=== PATIENT | male | born 1950 | race Hispanic/Latino ===

== ENCOUNTER 2024-09-24 17:52 | Inpatient (IN) | payer OTHER, SELFPAY ==
--- OUTSIDE RECORDS SUMMARY | 2024-09-24 17:56 | XMS REPORT | Continuity of Care Document ---
Author Name Unknown Address [address] [place], [place] [id number] [facility] Address [address] [place] [address] [address] [place] [address] Care Team Providers Care Family Engagement Specialist Name Role Phone UNKNOWN, REFFERING Primary Care Physician Roni santos Ajibade_O_AH Attending Clinician Unavailable Ige-Odunuga_J_AH Attending Clinician Unavailable JESSICA COSTA M.D., [place] BOWMAN Attending Clinician Unavailable Ajibade_O_AH Admitting Clinician Unavailable Ige-Odunuga_J_AH Admitting Clinician Unavailable JESSICA COSTA M.D., JESSICA Dela Cruz Admitting Clinician Unavailable Payers Payer Name Policy Type Policy Number Effective Date Expirati on Date Source [facility] (MEDICARE REPLACEMENT/ADVANT AGE - HMO) [id number] 2019 00:00:00 Encounters Start Date/Time End Date/Time Encounter Type Admission Type Attending Clinicians Care Facility Care Department Encounter ID Source 2020-03-16 03:28:00 2020-03-16 03:28:00 Outpatient Ajibade_O_A H [facility] VFP [id number] [facility] 2020-03-16 03:28:00 2020-03-16 03:28:00 Outpatient Ajibade_O_A H [facility] VFP [id number] [facility] 2019-09-08 07:23:00 2019-09-08 07:23:00 Outpatient Ige-Odunuga _J_AH V[facility] VFP [id number] [facility] 2019-09-08 07:23:00 2019-09-08 07:23:00 Outpatient Ige-Odunuga _J_AH VFP VFP [id number] [facility] 2017-06-19 10:47:00 2017-06-19 10:47:00 Outpatient C [facility] [id number] [facility] 2017-05-30 08:33:00 2017-05-30 08:33:00 Outpatient JESSICA MEEKS [facility] [id number] [facility] 2017-05-06 06:29:00 2017-05-06 19:44:00 Inpatient JESSICA MEEKS [facility] [id number] [facility] 2017-03-10 08:40:00 2017-03-10 08:40:00 Outpatient C [facility] [id number] [facility] 2014-04-06 09:43:00 2014-04-06 09:43:00 Outpatient C [facility] [id number] [facility] 2014-02-22 07:58:00 2014-02-22 07:58:00 Emergency E [facility] [id number] [facility] Results Test Description Test Time Test Comments Results Resul t Comments Source XR CYSTOGRAM (O.R.) 2017-06-19 12:03:48 XR CYSTOGRAM (O.R.)LOCATION: R16 HISTORY: N40.1: BENIGN PROSTATIC HYPERPLASIA WITH LOWER URINARY TRACTSYMPCOMPARISON: CT of the abdomen and pelvis 03/10/2017TECHNIQUE: Postdoctoral Scholar abdominal radiograph was obtained. Multiplefluoroscopic images of the bladder were obtained before and after theadministration of contrast via Hart catheter (approximately 100 mL ofCystografin). A post void abdominal radiograph was also obtained.FINDINGS: Postdoctoral Scholar radiograph shows a nonspecific, nonobstructive bowel gas pattern.A mild to moderate amount of colonic stool is present. Multiple smallcalcifications in the lower pelvis are likely phleboliths. Midlinemetallic ita are seen over the lower pelvis.The bladder has a bilobed configuration (with superior and inferiorlobe). A few small bilateral outpouchings are seen along the lateralbladder mills, left greater than right. Some of the contrast leaksaround the Hart catheter balloon into an apparent central prostatectomydefect. Aside from the Hart catheter, there are no definite fillingdefects within the bladder.IMPRESSION: 1. Bilobed bladder contour.2. Few small outpouchings along the lateral bladder mills, left greaterthan right, may be due to small diverticula and/or mucosal irregularity.3. Some of the contrast leaks around the Hart catheter balloon into anapparent central prostatectomy defect.4. Aside from the Hart catheter, there are no definite filling defectswithin the bladder. Basic Metabolic [id number] 06:00:00* Test Item Value Reference Range Interpretation Comme nts Sodium (test code = NA) 131 mmol/L 135-145 L Potassium (test code = K) 3.3 mmol/L 3.5-5.1 L Chloride (test code = CL) 98 mmol/L 98-105 N Carbon Dioxide (test code = CO2) 23 mmol/L 22-29 N Glucose (test code = GLU) 108 mg/dL 70-115 N Blood Urea Nitrogen (test code = BUN) 10 mg/dL 8-23 N Creatinine (test code = CREAT) 0.8 mg/dL 0.7-1.2 N Calcium (test code = CA) 8.4 mg/dL 8.3-10.5 N BUN/Creatinine Ratio (test code = BCRATIO) 12.5 Anion Gap (test code = AGAP) 10 mmol/L 7-16 N Estimated GFR (test code = GFR) >60 mL/min/1.73m2 eGFR (estimated Glomerular Filtration Rate) is an estimated value,calculated from the patient's serum creatinine using the MDRD equation.It is NOT the patient's actual GFR. The eGFR provides a more clinicallyuseful measure of kidney disease than serum creatinine alone.This calculation takes sex and race into account, if the informationis provided. If the race is not provided, and the patient isAfrican-Iranian, multiply by 1.212. If sex is not provided, and thepatient is female, multiply by 0.742. Results for patients <18 years ofage have not been validated by the MDRD study and should be interpretedwith caution.eGFR Result Interpretation:eGFR > or = 60 is in the Normal RangeeGFR < 60 may mean kidney diseaseeGFR < 15 may mean kidney failureRanges recommended by the National Kidney Foundation,http://nkdep .nih.gov CBC with [id number] 05:56:00* Test Item Value Reference Range Interpretation Comme nts WBC (test code = WBC) 8.3 K/cumm 4.4-10.5 N RBC (test code = RBC) 3.35 M/cumm 4.10-5.70 L Hemoglobin (test code = HGB) 10.1 gm/dL 13.4-17.4 L Hematocrit (test code = HCT) 30.0 % 38.7-52.0 L MCV (test code = MCV) 89.5 fL 80-100 N MCH (test code = MCH) 30.1 pg 27.0-32.5 N MCHC (test code = MCHC) 33.6 g/dL 32.0-37.5 N RDW (test code = RDW) 13.1 % 11.5-14.5 N Platelet Count (test code = PLTCT) 175 K/cumm 140-440 N MPV (test code = MPV) 8.6 fL Diff Method (test code = DIFFM) Auto Neutrophil (test code = NEUT) 78.0 % 36-70 H Lymphocyte (test code = LYMPH) 11.4 % 12-44 L Monocyte (test code = MONO) 5.3 % 0-11 N Eosinophil (test code = EOS) 4.8 % 0-7 N Basophil (test code = BASO) 0.4 % 0-2 N Neutro Abs (test code = ANEUT) 6.4 K/cumm 1.6-7.4 N Lymph Abs (test code = ALYMPH) 0.9 K/cumm 0.5-4.6 N Treasure Abs (test code = AMONO) 0.4 K/cumm 0.0-1.2 N Eos Abs (test code = AEOS) 0.40 K/cumm 0.00-0.74 N Baso Abs (test code = ABASO) 0.0 K/cumm 0.00-0.21 N RBC, Crossmatch [id number] 00:15:00* Test Item Value Reference Range Interpretation Comme nts Product 1 Code (test code = PRODCODE1) E4533 Unit 1 ID (test code = UNITID1) [id number] Unit 1 ABO (test code = UNITABO1) O Unit 1 Rh (test code = UNITRH1) POS Unit 1 Interp (test code = UNITINTERP1) Compatible Unit 1 Status (test code = UNITSTAT1) RE Product 2 Code (test code = PRODCODE2) E4532 Unit 2 ID (test code = UNITID2) [id number] Unit 2 ABO (test code = UNITABO2) O Unit 2 Rh (test code = UNITRH2) POS Unit 2 Interp (test code = UNITINTERP2) Compatible Unit 2 Status (test code = UNITSTAT2) RE Basic Metabolic [id number] 06:10:00* Test Item Value Reference Range Interpretation Comme nts Sodium (test code = NA) 135 mmol/L 135-145 N Potassium (test code = K) 3.4 mmol/L 3.5-5.1 L Chloride (test code = CL) 102 mmol/L 98-105 N Carbon Dioxide (test code = CO2) 24 mmol/L 22-29 N Glucose (test code = GLU) 103 mg/dL 70-115 N Blood Urea Nitrogen (test code = BUN) 9 mg/dL 8-23 N Creatinine (test code = CREAT) 0.9 mg/dL 0.7-1.2 N Calcium (test code = CA) 8.3 mg/dL 8.3-10.5 N BUN/Creatinine Ratio (test code = BCRATIO) 10.0 Anion Gap (test code = AGAP) 9 mmol/L 7-16 N Estimated GFR (test code = GFR) >60 mL/min/1.73m2 eGFR (estimated Glomerular Filtration Rate) is an estimated value,calculated from the patient's serum creatinine using the MDRD equation.It is NOT the patient's actual GFR. The eGFR provides a more clinicallyuseful measure of kidney disease than serum creatinine alone.This calculation takes sex and race into account, if the informationis provided. If the race is not provided, and the patient isAfrican-Iranian, multiply by 1.212. If sex is not provided, and thepatient is female, multiply by 0.742. Results for patients <18 years ofage have not been validated by the MDRD study and should be interpretedwith caution.eGFR Result Interpretation:eGFR > or = 60 is in the Normal RangeeGFR < 60 may mean kidney diseaseeGFR < 15 may mean kidney failureRanges recommended by the National Kidney Foundation,http://nkdep .nih.gov CBC with [id number] 06:05:00* Test Item Value Reference Range Interpretation Comme nts WBC (test code = WBC) 8.6 K/cumm 4.4-10.5 N RBC (test code = RBC) 3.30 M/cumm 4.10-5.70 L Hemoglobin (test code = HGB) 10.1 gm/dL 13.4-17.4 L Hematocrit (test code = HCT) 28.4 % 38.7-52.0 L MCV (test code = MCV) 86.3 fL 80-100 N MCH (test code = MCH) 30.6 pg 27.0-32.5 N MCHC (test code = MCHC) 35.4 g/dL 32.0-37.5 N RDW (test code = RDW) 13.3 % 11.5-14.5 N Platelet Count (test code = PLTCT) 130 K/cumm 140-440 L MPV (test code = MPV) 10.6 fL Diff Method (test code = DIFFM) Auto Neutrophil (test code = NEUT) 79.7 % 36-70 H Lymphocyte (test code = LYMPH) 12.2 % 12-44 N Monocyte (test code = MONO) 4.8 % 0-11 N Eosinophil (test code = EOS) 3.0 % 0-7 N Basophil (test code = BASO) 0.3 % 0-2 N Neutro Abs (test code = ANEUT) 6.9 K/cumm 1.6-7.4 N Lymph Abs (test code = ALYMPH) 1.1 K/cumm 0.5-4.6 N Treasure Abs (test code = AMONO) 0.4 K/cumm 0.0-1.2 N Eos Abs (test code = AEOS) 0.26 K/cumm 0.00-0.74 N Baso Abs (test code = ABASO) 0.0 K/cumm 0.00-0.21 N Basic Metabolic [id number] 05:43:00* Test Item Value Reference Range Interpretation Comme nts Sodium (test code = NA) 138 mmol/L 135-145 N Potassium (test code = K) 4.0 mmol/L 3.5-5.1 N Chloride (test code = CL) 108 mmol/L 98-105 H Carbon Dioxide (test code = CO2) 23 mmol/L 22-29 N Glucose (test code = GLU) 97 mg/dL 70-115 N Blood Urea Nitrogen (test code = BUN) 12 mg/dL 8-23 N Creatinine (test code = CREAT) 0.7 mg/dL 0.7-1.2 N Calcium (test code = CA) 8.2 mg/dL 8.3-10.5 L BUN/Creatinine Ratio (test code = BCRATIO) 17.1 Anion Gap (test code = AGAP) 7 mmol/L 7-16 N Estimated GFR (test code = GFR) >60 mL/min/1.73m2 eGFR (estimated Glomerular Filtration Rate) is an estimated value,calculated from the patient's serum creatinine using the MDRD equation.It is NOT the patient's actual GFR. The eGFR provides a more clinicallyuseful measure of kidney disease than serum creatinine alone.This calculation takes sex and race into account, if the informationis provided. If the race is not provided, and the patient isAfrican-Iranian, multiply by 1.212. If sex is not provided, and thepatient is female, multiply by 0.742. Results for patients <18 years ofage have not been validated by the MDRD study and should be interpretedwith caution.eGFR Result Interpretation:eGFR > or = 60 is in the Normal RangeeGFR < 60 may mean kidney diseaseeGFR < 15 may mean kidney failureRanges recommended by the National Kidney Foundation,http://nkdep .nih.gov CBC with [id number] 05:19:00* Test Item Value Reference Range Interpretation Comme nts WBC (test code = WBC) 8.6 K/cumm 4.4-10.5 N RBC (test code = RBC) 3.40 M/cumm 4.10-5.70 L Hemoglobin (test code = HGB) 10.4 gm/dL 13.4-17.4 L Hematocrit (test code = HCT) 29.1 % 38.7-52.0 L MCV (test code = MCV) 85.4 fL 80-100 N MCH (test code = MCH) 30.5 pg 27.0-32.5 N MCHC (test code = MCHC) 35.7 g/dL 32.0-37.5 N RDW (test code = RDW) 13.3 % 11.5-14.5 N Platelet Count (test code = PLTCT) 135 K/cumm 140-440 L MPV (test code = MPV) 10.8 fL Diff Method (test code = DIFFM) Auto Neutrophil (test code = NEUT) 81.0 % 36-70 H Lymphocyte (test code = LYMPH) 11.8 % 12-44 L Monocyte (test code = MONO) 5.1 % 0-11 N Eosinophil (test code = EOS) 1.6 % 0-7 N Basophil (test code = BASO) 0.5 % 0-2 N Neutro Abs (test code = ANEUT) 7.0 K/cumm 1.6-7.4 N Lymph Abs (test code = ALYMPH) 1.0 K/cumm 0.5-4.6 N Treasure Abs (test code = AMONO) 0.4 K/cumm 0.0-1.2 N Eos Abs (test code = AEOS) 0.14 K/cumm 0.00-0.74 N Baso Abs (test code = ABASO) 0.0 K/cumm 0.00-0.21 N [id number] 10:55:00* Test Item Value Reference Range Interpretation Comme nts Phosphorus (test code = PO4) 2.5 mg/dL 2.70-4.50 L Magnesium, [id number] 10:53:00* Test Item Value Reference Range Interpretation Comme nts Magnesium (test code = MG) 1.8 mg/dL 1.7-2.5 N Basic Metabolic [id number] 03:59:00* Test Item Value Reference Range Interpretation Comme nts Sodium (test code = NA) 138 mmol/L 135-145 N Potassium (test code = K) 4.0 mmol/L 3.5-5.1 N Chloride (test code = CL) 108 mmol/L 98-105 H Carbon Dioxide (test code = CO2) 21 mmol/L 22-29 L Glucose (test code = GLU) 132 mg/dL 70-115 H Blood Urea Nitrogen (test code = BUN) 18 mg/dL 8-23 N Creatinine (test code = CREAT) 0.9 mg/dL 0.7-1.2 N Calcium (test code = CA) 8.2 mg/dL 8.3-10.5 L BUN/Creatinine Ratio (test code = BCRATIO) 20.0 Anion Gap (test code = AGAP) 9 mmol/L 7-16 N Estimated GFR (test code = GFR) >60 mL/min/1.73m2 eGFR (estimated Glomerular Filtration Rate) is an estimated value,calculated from the patient's serum creatinine using the MDRD equation.It is NOT the patient's actual GFR. The eGFR provides a more clinicallyuseful measure of kidney disease than serum creatinine alone.This calculation takes sex and race into account, if the informationis provided. If the race is not provided, and the patient isAfrican-Iranian, multiply by 1.212. If sex is not provided, and thepatient is female, multiply by 0.742. Results for patients <18 years ofage have not been validated by the MDRD study and should be interpretedwith caution.eGFR Result Interpretation:eGFR > or = 60 is in the Normal RangeeGFR < 60 may mean kidney diseaseeGFR < 15 may mean kidney failureRanges recommended by the National Kidney Foundation,http://nkdep .nih.gov CBC with [id number] 03:46:00* Test Item Value Reference Range Interpretation Comme nts WBC (test code = WBC) 11.7 K/cumm 4.4-10.5 H RBC (test code = RBC) 3.62 M/cumm 4.10-5.70 L Hemoglobin (test code = HGB) 10.9 gm/dL 13.4-17.4 L Hematocrit (test code = HCT) 32.4 % 38.7-52.0 L MCV (test code = MCV) 89.6 fL 80-100 N MCH (test code = MCH) 30.1 pg 27.0-32.5 N MCHC (test code = MCHC) 33.7 g/dL 32.0-37.5 N RDW (test code = RDW) 13.1 % 11.5-14.5 N Platelet Count (test code = PLTCT) 153 K/cumm 140-440 N MPV (test code = MPV) 8.3 fL Diff Method (test code = DIFFM) Auto Neutrophil (test code = NEUT) 88.7 % 36-70 H Lymphocyte (test code = LYMPH) 6.9 % 12-44 L Monocyte (test code = MONO) 4.3 % 0-11 N Eosinophil (test code = EOS) 0.1 % 0-7 N Basophil (test code = BASO) 0.1 % 0-2 N Neutro Abs (test code = ANEUT) 10.4 K/cumm 1.6-7.4 H Lymph Abs (test code = ALYMPH) 0.8 K/cumm 0.5-4.6 N Treasure Abs (test code = AMONO) 0.5 K/cumm 0.0-1.2 N Eos Abs (test code = AEOS) 0.01 K/cumm 0.00-0.74 N Baso Abs (test code = ABASO) 0.0 K/cumm 0.00-0.21 N CBC with [id number] 14:32:00* Test Item Value Reference Range Interpretation Comme nts WBC (test code = WBC) 8.5 K/cumm 4.4-10.5 N WBC Corrected (test code = CWBC) 8.4 K/cumm 4.4-10.5 N RBC (test code = RBC) 3.75 M/cumm 4.10-5.70 L Hemoglobin (test code = HGB) 11.6 gm/dL 13.4-17.4 L Hematocrit (test code = HCT) 33.8 % 38.7-52.0 L MCV (test code = MCV) 90.0 fL 80-100 N MCH (test code = MCH) 30.8 pg 27.0-32.5 N MCHC (test code = MCHC) 34.2 g/dL 32.0-37.5 N RDW (test code = RDW) 13.2 % 11.5-14.5 N Platelet Count (test code = PLTCT) 144 K/cumm 140-440 N MPV (test code = MPV) 7.9 fL Diff Method (test code = DIFFM) Manual Neutrophil (test code = NEUT) 85.0 % 36-70 H Bands (test code = BAND) 9.0 % 0-6 H Lymphocyte (test code = LYMPH) 3.0 % 12-44 L Monocyte (test code = MONO) 3.0 % 0-11 N nRBC (test code = NRBC) 1 /100 WBC 0-0 H Neutro Abs (test code = ANEUT) 7.9 K/cumm 1.6-7.4 H Lymph Abs (test code = ALYMPH) 0.3 K/cumm 0.5-4.6 L Treasure Abs (test code = AMONO) 0.3 K/cumm 0.0-1.2 N RBC Morphology (test code = RBCMRPH) Normal Platelet Est (test code = PLTEST) Normal Platelet on Smear Basic Metabolic [id number] 14:05:00* Test Item Value Reference Range Interpretation Comme nts Sodium (test code = NA) 138 mmol/L 135-145 N Potassium (test code = K) 3.9 mmol/L 3.5-5.1 N Chloride (test code = CL) 107 mmol/L 98-105 H Carbon Dioxide (test code = CO2) 19 mmol/L 22-29 L Glucose (test code = GLU) 120 mg/dL 70-115 H Blood Urea Nitrogen (test code = BUN) 20 mg/dL 8-23 N Creatinine (test code = CREAT) 0.9 mg/dL 0.7-1.2 N Calcium (test code = CA) 8.1 mg/dL 8.3-10.5 L BUN/Creatinine Ratio (test code = BCRATIO) 22.2 Anion Gap (test code = AGAP) 12 mmol/L 7-16 N Estimated GFR (test code = GFR) >60 mL/min/1.73m2 eGFR (estimated Glomerular Filtration Rate) is an estimated value,calculated from the patient's serum creatinine using the MDRD equation.It is NOT the patient's actual GFR. The eGFR provides a more clinicallyuseful measure of kidney disease than serum creatinine alone.This calculation takes sex and race into account, if the informationis provided. If the race is not provided, and the patient isAfrican-Iranian, multiply by 1.212. If sex is not provided, and thepatient is female, multiply by 0.742. Results for patients <18 years ofage have not been validated by the MDRD study and should be interpretedwith caution.eGFR Result Interpretation:eGFR > or = 60 is in the Normal RangeeGFR < 60 may mean kidney diseaseeGFR < 15 may mean kidney failureRanges recommended by the National Kidney Foundation,http://nkdep .nih.gov Antibody Screen - [id number] 10:04:00* Test Item Value Reference Range Interpretation Comme nts Antibody Screen (test code = ABSCR) Negative Blood Gas+Lytes+Glu+Ca+Hgb+Hct+[id number] 09:54:00* Test Item Value Reference Range Interpretation Comme nts pH, Blood Gas (test code = BGPH) 7.368 pH Units 7.35-7.45 N pCO2 (test code = PCO2) 35.8 mm Hg 35-45 N pO2 (test code = PO2) 241.0 mm Hg 80-100 HH Bicarbonate (test code = HCO3) 20.6 mmol/L 22.0-26.0 LL Base Excess (test code = BE) -4.1 mmol/L O2 Saturation (test code = O2SAT) 99.6 % 80.0-100.0 N Sodium, Blood Gas (test code = BGNA) 141 mmol/L 135-145 N Potassium, Blood Gas (test code = BGK) 3.9 mmol/L 3.5-4.5 N Chloride, Blood Gas (test code = BGCL) 112 mmol/L 98-105 H Calcium, Ionized, Blood Gas (test code = BGCAI) 1.10 mmol/L 1.00-1.50 N Glucose, Blood Gas (test code = BGGLU) 109 mg/dL 75-115 N tHB (test code = RTHB) 12.1 gm/dL 12.2-17.4 L Hematocrit, Blood Gas (test code = BGHCT) 37.2 % 34.0-52.0 N O2Hb (test code = RO2HB) 97 80-100 N Carboxyhemoglobin (test code = CARHGB) 0.7 % 0.0-20.0 N Methemoglobin (test code = METHGB) 1.7 % 0.0-20.0 N FIO2 % (test code = FIO2) 100 % Patient Temperature (test code = PTTEMP) 37.0 Degrees Celcius Puncture Site (test code = PUNSITE) Art line Drawing Tech ID (test code = DRAWTECH) dr cervantes Lactic Acid, Blood Gas (test code = BGLA) 1.1 mmol/L Respiratory Rate (test code = RESP RATE) 0 Blood Type and [id number] 09:26:00* Test Item Value Reference Range Interpretation Comme nts ABO type (test code = ABO) O Rh Type (test code = RH) Positive Blood Gas+Lytes+Glu+Ca+Hgb+Hct+[id number] 08:42:00* Test Item Value Reference Range Interpretation Comme nts pH, Blood Gas (test code = BGPH) 7.449 pH Units 7.35-7.45 N pCO2 (test code = PCO2) 30.7 mm Hg 35-45 L pO2 (test code = PO2) 540.0 mm Hg 80-100 HH Bicarbonate (test code = HCO3) 21.3 mmol/L 22.0-26.0 LL Base Excess (test code = BE) -1.7 mmol/L O2 Saturation (test code = O2SAT) 98.8 % 80.0-100.0 N Sodium, Blood Gas (test code = BGNA) 140 mmol/L 135-145 N Potassium, Blood Gas (test code = BGK) 3.9 mmol/L 3.5-4.5 N Chloride, Blood Gas (test code = BGCL) 111 mmol/L 98-105 H Calcium, Ionized, Blood Gas (test code = BGCAI) 1.18 mmol/L 1.00-1.50 N Glucose, Blood Gas (test code = BGGLU) 96 mg/dL 75-115 N tHB (test code = RTHB) 13.8 gm/dL 12.2-17.4 N Hematocrit, Blood Gas (test code = BGHCT) 42.4 % 34.0-52.0 N O2Hb (test code = RO2HB) 98 80-100 N Carboxyhemoglobin (test code = CARHGB) -0.1 % 0.0-20.0 LL Methemoglobin (test code = METHGB) 1.1 % 0.0-20.0 N FIO2 % (test code = FIO2) 100 % Patient Temperature (test code = PTTEMP) 37.0 Degrees Celcius Puncture Site (test code = PUNSITE) Art line Drawing Tech ID (test code = DRAWTECH) dr cervantes Lactic Acid, Blood Gas (test code = BGLA) 0.9 mmol/L Respiratory Rate (test code = RESP RATE) 0 Culture, [id number] 11:26:00Specimen: UrineCollected: 05/30/2017 11:40 Status: Final Last Updated: 06/03/2017 11:26 Isolate (Final) (Final) 05/31/17 >100,000 CFU/mL Morganella morganii 06/02/17 Multi Drug Resistant Organism - Contact IsolationRecommended Amikacin <=16 Susceptible Ampicillin >16 Resistant Ampicillin/Sulb >16/8 Resistant Cefazolin >16 Resistant Cefepime <=4 Susceptible Cefotaxime 16 Intermediate Ceftazidime 16 Intermediate Ceftriaxone 2 Intermediate Cefuroxime >16 Resistant Ciprofloxacin >2 Resistant Gentamicin >8 Resistant Imipenem 4 Resistant Levofloxacin >4 Resistant Meropenem <=1 Susceptible Nitrofurantoin 64 Resistant Piperacillin/Tazo 64 Intermediate Tobramycin >8 Resistant Trimethoprim/Sulfa >2/38 Resistant Isolate (Final) (Final) 05/31/17 >100,000 CFU/mL Group D Enterococcus Isolate Group D Enterococcus PRITI (mcg/ml) Ampicillin(AM) <=2 Susceptible Ciprofloxacin (CP) 2 Intermediate Gentamicin Syn (HLG) <=500 Susceptible Levofloxacin (LEV) 2 Susceptible Linezolid (LNZ) 2 Susceptible Nitrofurantoin (FT) <=32 Susceptible Penicillin (P) 2 Susceptible Streptomycin Syn (HLS)<=1000 Susceptible Tetracycline (TE) >8 Resistant Vancomycin (VA) 2 SusceptibleBasi Metabolic [id number] 13:26:00* Test Item Value Reference Range Interpretation Comme nts Sodium (test code = NA) 137 mmol/L 135-145 N Potassium (test code = K) 4.0 mmol/L 3.5-5.1 N Chloride (test code = CL) 99 mmol/L 98-105 N Carbon Dioxide (test code = CO2) 24 mmol/L 22-29 N Glucose (test code = GLU) 84 mg/dL 70-115 N Blood Urea Nitrogen (test code = BUN) 17 mg/dL 8-23 N Creatinine (test code = CREAT) 0.9 mg/dL 0.7-1.2 N Calcium (test code = CA) 9.5 mg/dL 8.3-10.5 N BUN/Creatinine Ratio (test code = BCRATIO) 18.9 Anion Gap (test code = AGAP) 14 mmol/L 7-16 N Estimated GFR (test code = GFR) >60 mL/min/1.73m2 eGFR (estimated Glomerular Filtration Rate) is an estimated value,calculated from the patient's serum creatinine using the MDRD equation.It is NOT the patient's actual GFR. The eGFR provides a more clinicallyuseful measure of kidney disease than serum creatinine alone.This calculation takes sex and race into account, if the informationis provided. If the race is not provided, and the patient isAfrican-Iranian, multiply by 1.212. If sex is not provided, and thepatient is female, multiply by 0.742. Results for patients <18 years ofage have not been validated by the MDRD study and should be interpretedwith caution.eGFR Result Interpretation:eGFR > or = 60 is in the Normal RangeeGFR < 60 may mean kidney diseaseeGFR < 15 may mean kidney failureRanges recommended by the National Kidney Foundation,http://nkdep .nih.gov Urinalysis [id number] 13:20:00* Test Item Value Reference Range Interpretation Comme nts Color (test code = COLOR) Yellow Yellow ,Straw,Pl yellow N Clarity (test code = CLAR) Sl Cloudy Clear A Specific [place] (test code = SPGR) 1.012 1.001-1.035 N pH (test code = PH) 7.0 5.0-9.0 N Ketone (test code = KET) Negative mg/dL Negative N Glucose (test code = GLUCUR) Negative mg/dL Negative N Protein (test code = PROT) 75 mg/dL Negative A Bilirubin (test code = BILI) Negative mg/dL Negative N Occult Blood (test code = UDOB) Moderate Negative A Urobilinogen (test code = UROB) 0.2 mg/dL 0.2-1.0 N Nitrite (test code = NIT) Negative Negative N Leuk Esterase (test code = LEUK) Large Negative A Micros Exam (test code = MEXAM) Indicated Epithelial Cells (test code = EPI) 10-14 /LPF 0-30 A WBC, Urine (test code = UWBC) >182 /HPF 0-5 A RBC, Urine (test code = URBC) 6-10 /HPF 0-5 A Bacteria (test code = BACT) Many /HPF Partial Thromboplastin [id number] 13:04:00* Test Item Value Reference Range Interpretation Comme nts aPTT (test code = PTT) 31.60 seconds 24.39-37.25 N Prothrombin [id number] 13:04:00* Test Item Value Reference Range Interpretation Comme nts PT (test code = PT) 11.40 seconds 9.78-13.35 N INR (test code = INR) 1.01 Ratio 0.6-1.2 N CBC with [id number] 12:38:00* Test Item Value Reference Range Interpretation Comme nts WBC (test code = WBC) 4.6 K/cumm 4.4-10.5 N RBC (test code = RBC) 4.96 M/cumm 4.10-5.70 N Hemoglobin (test code = HGB) 14.9 gm/dL 13.4-17.4 N Hematocrit (test code = HCT) 44.8 % 38.7-52.0 N MCV (test code = MCV) 90.3 fL 80-100 N MCH (test code = MCH) 30.0 pg 27.0-32.5 N MCHC (test code = MCHC) 33.2 g/dL 32.0-37.5 N RDW (test code = RDW) 12.9 % 11.5-14.5 N Platelet Count (test code = PLTCT) 255 K/cumm 140-440 N MPV (test code = MPV) 8.5 fL Diff Method (test code = DIFFM) Auto Neutrophil (test code = NEUT) 62.2 % 36-70 N Lymphocyte (test code = LYMPH) 27.1 % 12-44 N Monocyte (test code = MONO) 6.9 % 0-11 N Eosinophil (test code = EOS) 2.8 % 0-7 N Basophil (test code = BASO) 1.1 % 0-2 N Neutro Abs (test code = ANEUT) 2.9 K/cumm 1.6-7.4 N Lymph Abs (test code = ALYMPH) 1.3 K/cumm 0.5-4.6 N Treasure Abs (test code = AMONO) 0.3 K/cumm 0.0-1.2 N Eos Abs (test code = AEOS) 0.13 K/cumm 0.00-0.74 N Baso Abs (test code = ABASO) 0.1 K/cumm 0.00-0.21 N XR CHEST 2V, [id number] 10:37:53EXAM: Chest x-ray, 2 viewsLOCATION: [id number]: CT of the abdomen and pelvis 03/10/2017INDICATION: N21.0: CALCULUS IN BLADDERDISCUSSION:PA and lateral chest radiographs were submitted for interpretation.No consolidation, pleural effusion, or pneumothorax is seen. There is eventration of the righthemidiaphragm.The cardiomediastinal silhouette is within normal limits. No acute osseous abnormalities are identified. A small lobular calcific density over the lower left paramedian neck isindetermi shun.IMPRESSION:No acute cardiopulmonary abnormalities.Culture, [id number] 10:21:00Specimen: UrineCollected: 05/06/2017 10:45 Status: Final Last Updated: 05/09/2017 10:21 Isolate (Final) (Final) 05/07/17 40,000 CFU/mL Morganella morganii +05/09/17 Multi Drug Resistant Organism - Contact IsolationRecommended Amikacin <=16 Susceptible Ampicillin >16 Resistant Ampicillin/Sulb >16/8 Resistant Cefazolin >16 Resistant Cefepime <=4 Susceptible Cefotaxime 32 Intermediate Ceftazidime >16 Resistant Ceftriaxone 8 Resistant Cefuroxime >16 Resistant Ciprofloxacin >2 Resistant Gentamicin >8 Resistant Imipenem 4 Resistant Levofloxacin >4 Resistant Meropenem <=1 Susceptible Nitrofurantoin 64 Resistant Piperacillin/Tazo 64 Intermediate Tobramycin >8 Resistant Trimethoprim/Sulfa >2/38 Resistant Result added after release. Isolate (Final) (Final) 05/07/17 40,000 CFU/mL Morganella morganii Amikacin <=16 Susceptible Ampicillin >16 Resistant Ampicillin/Sulb >16/8 Resistant Cefazolin >16 Resistant Cefepime <=4 Susceptible Cefotaxime 32 Intermediate Ceftazidime >16 Resistant Ceftriaxone 8 Resistant Cefuroxime >16 Resistant Ciprofloxacin >2 Resistant Gentamicin >8 Resistant Imipenem 4 Resistant Levofloxacin >4 Resistant Meropenem <=1 Susceptible Nitrofurantoin 64 Resistant Piperacillin/Tazo 64 Intermediate Tobramycin >8 Resistant Trimethoprim/Sulfa >2/38 ResistantNM MYOCARDL PERF IMAGE SPECT [id number] 16:01:05[facility] MEDICINE GATED SPECT MYOCARDIAL PERFUSION STUDY AT REST ANDSTRESS JCSCPVPO38/17/2017 12:52 P MTECHNIQUE: The study was performed employing imaging both with the patient at restand again after the patient had completed a stress protocol. Imageswere reconstructed in three orthogonal planes with 3D imagingreconstructions also performed. COMMENT: Study was obtained using 40 mCi of technetium 99 labeledCardiolite. Patient is a 67-year-old male with abnormal EKG referred forstress test prior to contemplated surgery.ADEQUACY OF THE STRESS: Stress was performed with IV Lexiscan protocol. LEFT VENTRICULAR PERFUSION: Normal. No evidence of stress-induceddefects noted.RIGHT VENTRICULAR ACTIVITY: Not increased.LEFT VENTRICULAR CAVITY SIZE: Normal and stable with stress.GATED INFORMATION: Post-rest LVEF 70%.IMPRESSION: Normal study.Culture, Urine 2017-04-18 10:42:00Specimen: UrineCollected: 04/14/2017 15:30 Status: Final Last Updated: 04/18/2017 10:42 Culture Result (Final) (Final) 04/15/17 Growth too young to evaluate at 24 hours-reincubated Isolate (Final) (Final) 04/16/17 >100,000 CFU/mL Morganella morganii Amikacin <=16 Susceptible Ampicillin >16 R esistant Ampicillin/Sulb >16/8 Resistant Cefazolin >16 Resistant Cefepime <=4 Susceptible Cefotaxime 16 Intermediate Ceftazidime >16 Resistant Ceftriaxone <=1 Susceptible Cefuroxime >16 Resistant Ciprofloxacin >2 Resistant Gentamicin >8 Resistant Imipenem 2 Intermediate Levofloxacin >4 Resistant Meropenem <=1 Susceptible Nitrofurantoin 64 Resistant Piperacillin/Tazo 64 Intermediate Tobramycin >8 Resistant Trimethoprim/Sulfa >2/38 ResistantBasic Metabolic Panel 2017-04-14 17:13:00* Test Item Value Reference Range Interpretation Comme nts Sodium (test code = NA) 137 mmol/L 135-145 N Potassium (test code = K) 4.2 mmol/L 3.5-5.1 N Chloride (test code = CL) 101 mmol/L 98-105 N Carbon Dioxide (test code = CO2) 25 mmol/L 22-29 N Glucose (test code = GLU) 113 mg/dL 70-115 N Blood Urea Nitrogen (test code = BUN) 18 mg/dL 8-23 N Creatinine (test code = CREAT) 0.9 mg/dL 0.7-1.2 N Calcium (test code = CA) 9.2 mg/dL 8.3-10.5 N BUN/Creatinine Ratio (test code = BCRATIO) 20.0 Anion Gap (test code = AGAP) 11 mmol/L 7-16 N Estimated GFR (test code = GFR) >60 mL/min/1.73m2 eGFR (estimated Glomerular Filtration Rate) is an estimated value,calculated from the patient's serum creatinine using the MDRD equation.It is NOT the patient's actual GFR. The eGFR provides a more clinicallyuseful measure of kidney disease than serum creatinine alone.This calculation takes sex and race into account, if the informationis provided. If the race is not provided, and the patient isAfrican-Iranian, multiply by 1.212. If sex is not provided, and thepatient is female, multiply by 0.742. Results for patients <18 years ofage have not been validated by the MDRD study and should be interpretedwith caution.eGFR Result Interpretation:eGFR > or = 60 is in the Normal RangeeGFR < 60 may mean kidney diseaseeGFR < 15 may mean kidney failureRanges recommended by the National Kidney Foundation,http://nkdep .nih.gov Urinalysis [id number] 16:57:00* Test Item Value Reference Range Interpretation Comme nts Color (test code = COLOR) Yellow Yellow,Straw,Pl yellow N Clarity (test code = CLAR) Cloudy Clear A Specific [place] (test code = SPGR) 1.016 1.001-1.035 N pH (test code = PH) 7.0 5.0-9.0 N Ketone (test code = KET) Negative mg/dL Negative N Glucose (test code = GLUCUR) Negative mg/dL Negative N Protein (test code = PROT) 75 mg/dL Negative A Bilirubin (test code = BILI) Negative mg/dL Negative N Occult Blood (test code = UDOB) Moderate Negative A Urobilinogen (test code = UROB) 0.2 mg/dL 0.2-1.0 N Nitrite (test code = NIT) Negative Negative N Leuk Esterase (test code = LEUK) Large Negative A Micros Exam (test code = MEXAM) Indicated Epithelial Cells (test code = EPI) 15-19 /LPF 0-30 A WBC, Urine (test code = UWBC) >182 /HPF 0-5 A RBC, Urine (test code = URBC) 3-5 /HPF 0-5 A Bacteria (test code = BACT) Many /HPF Crystals (test code = LENKA) Few Triple Phosphate /HPF CBC with [id number] 16:43:00* Test Item Value Reference Range Interpretation Comme nts WBC (test code = WBC) 6.5 K/cumm 4.4-10.5 N RBC (test code = RBC) 4.58 M/cumm 4.10-5.70 N Hemoglobin (test code = HGB) 13.8 gm/dL 13.4-17.4 N Hematocrit (test code = HCT) 41.3 % 38.7-52.0 N MCV (test code = MCV) 90.2 fL 80-100 N MCH (test code = MCH) 30.1 pg 27.0-32.5 N MCHC (test code = MCHC) 33.4 g/dL 32.0-37.5 N RDW (test code = RDW) 13.3 % 11.5-14.5 N Platelet Count (test code = PLTCT) 233 K/cumm 140-440 N MPV (test code = MPV) 8.6 fL Diff Method (test code = DIFFM) Auto Neutrophil (test code = NEUT) 64.3 % 36-70 N Lymphocyte (test code = LYMPH) 25.0 % 12-44 N Monocyte (test code = MONO) 6.1 % 0-11 N Eosinophil (test code = EOS) 3.4 % 0-7 N Basophil (test code = BASO) 1.2 % 0-2 N Neutro Abs (test code = ANEUT) 4.2 K/cumm 1.6-7.4 N Lymph Abs (test code = ALYMPH) 1.6 K/cumm 0.5-4.6 N Treasure Abs (test code = AMONO) 0.4 K/cumm 0.0-1.2 N Eos Abs (test code = AEOS) 0.22 K/cumm 0.00-0.74 N Baso Abs (test code = ABASO) 0.1 K/cumm 0.00-0.21 N [id number] 1+ SECTION/[id number] 10:13:26CT ABDOMEN AND PELVIS WITH AND WITHOUT CONTRAST.CLINICAL HISTORY: N40.1: ENLARGED PROSTATE WITH LOWER URINARY TRACTSYMPTOMSCOMPARISON: CT dated April 06, 2014TECHNIQUE: Precontrast images of the abdomen and pelvis were obtained. Then thepatient was given 100 mL of Isovue-300 intravenous contrast, and imageswere obtained in the venous and delayed urogram phases. One or more ofthe following dose reduction techniques were used: Automated exposurecontrol, adjustment of the mA and/or kV according to patient size,and/or utilization of iterative reconstruction technique. Coronal andsagittal reformats were provided.FINDINGS:The visualized lung bases are clear. No pleural effusion is seen. Theheart size is upper normal.The liver, gallbladder, spleen, pancreas, and adrenal glands appearnormal.No significant perinephric fat stranding or fluid collection is present. A 1.9 cm Bosniak type I cystis seen in the upper pole of the rightkidney. Bosniak type I cysts in the lower pole of the left kidneymeasure 1.4 cm and 1.5 cm respectively. There are a few subcentimeterhypodensities in both kidneys which are too small to characterize. Mildbilateral hydroureter is noted.The urinary bladder demons trates circumferential wall thickening. Thereare numerous intravesical stones. The largest stone measures 4 cm inlength. There is also intravesical protrusion of the enlarged prostategland. The prostate gland measures 9.1 x 6.8 x 7 cm in the craniocaudalby transverse by AP dimensions. Prostate volume is calculated as 226 ccusing the ellipsoid volume calculator.Pelvic lymph nodes are subcentimeter in size. A 1.1 cm node is seen inthe right inguinal canal (series 2, image 98). No retroperitonealadenopathy is seen.No aggressive osseous lesion is identified.IMPRESSION: 1. Marked prostatomegaly with intravesical protrusion. Prostate volumeis 226 cc.2. Numerous bladder calculi.3. Circumferential bladder wall thickening in the setting of chronicbladder outlet obstruction.4. Mild bilateral hydroureter.Location: R16 Notes Date/Time Note Provider Source 2017-06-18 08:11:40 [facility] enter Progress Note PATIENT NAME: BETH FELICIANO PHYSICIAN: Cecil Mcclure MD Admitted: MR NUMBER: [id number] DISCHARGED: SUBJECTIVE: This patient is stable and doing relatively well. The patient is now being transferred to the medicine floor. OBJECTIVE: VITAL SIGNS: Blood pressure is 115/60, respiratory rate 17, pulse 80, temperature 98.4, and O2 saturation 97%. CHEST: Clear to auscultation bilaterally. HEART: Regular rate and rhythm. Normal S1, S2. ABDOMEN: Positive bowel sounds. Soft, nontender, and nondistended. There is no hepatosplenomegaly. EXTREMITIES: There is no cyanosis, clubbing, or edema. Pulses are 2+ and equal bilaterally throughout. NEUROLOGIC: This patient is awake, alert, and oriented x3. LABORATORY DATA: The patient's chemistry reveals sodium 138, potassium 4.0, chloride 108, CO2 of 21, BUN 18, creatinine 0.9, blood glucose 132, calcium 8.2 with a GFR of greater than 60. Magnesium is 1.8 and phosphorus 2.5. CBC reveals a WBC of 11.7, hemoglobin 10.9, hematocrit 32.4 with a platelet count of 153. ASSESSMENT AND PLAN: 1. Status post prostatectomy and partial cystectomy. The patient has done well, status post surgery. The patient is to continue on his current regimen at this time. 2. Deconditioned state. This patient will be seen by the physical therapist. 3. Constipation. The patient is to be given Colace 100 mg p.o. b.i.d. 4. Gastroesophageal reflux disease. The patient is to continue on Pepcid 20 mg IV q.12 hours. 5. Hypertension. The patient's blood pressure is relatively well controlled with metoprolol, which is to be given IV every 6 hours p.r.n. for systolic blood pressure greater than 160. Cecil Mcclure MD AW/SHE TD: 06/07/2017 00:23 CC:Cecil Mcclure MD [facility] Progress Note PATIENT NAME: BETH FELICIANO PHYSICIAN: Cecil Mcclure MD Admitted: MR NUMBER: [id number] DISCHARGED: SUBJECTIVE: This patient is stable and doing relatively well. The patient is now being transferred to the medicine floor. OBJECTIVE: VITAL SIGNS: Blood pressure is 115/60, respiratory rate 17, pulse 80, temperature 98.4, and O2 saturation 97%. CHEST: Clear to auscultation bilaterally. HEART: Regular rate and rhythm. Normal S1, S2. ABDOMEN: Positive bowel sounds. Soft, nontender, and nondistended. There is no hepatosplenomegaly. EXTREMITIES: There is no cyanosis, clubbing, or edema. Pulses are 2+ and equal bilaterally throughout. NEUROLOGIC: This patient is awake, alert, and oriented x3. LABORATORY DATA: The patient's chemistry reveals sodium 138, potassium 4.0, chloride 108, CO2 of 21, BUN 18, creatinine 0.9, blood glucose 132, calcium 8.2 with a GFR of greater than 60. Magnesium is 1.8 and phosphorus 2.5. CBC reveals a WBC of 11.7, hemoglobin 10.9, hematocrit 32.4 with a platelet count of 153. ASSESSMENT AND PLAN: 1. Status post prostatectomy and partial cystectomy. The patient has done well, status post surgery. The patient is to continue on his current regimen at this time. 2. Deconditioned state. This patient will be seen by the physical therapist. 3. Constipation. The patient is to be given Colace 100 mg p.o. b.i.d. 4. Gastroesophageal reflux disease. The patient is to continue on Pepcid 20 mg IV q.12 hours. 5. Hypertension. The patient's blood pressure is relatively well controlled with metoprolol, which is to be given IV every 6 hours p.r.n. for systolic blood pressure greater than 160. Cecil Mcclure MD AW/SHE TD: 06/07/2017 00:23 CC:Cecil Mcclure MD Electronically Authenticated by: Cecil Mcclure MD On 06/18/2017 08:[address] [facility] 2017-06-18 08:10:20 [facility] enter Progress Note PATIENT NAME: BETH FELICIANO PHYSICIAN: Cecil Mcclure MD Admitted: MR NUMBER: [id number] DISCHARGED: DATE OF SERVICE: 06/07/2017 SUBJECTIVE: The patient is stable. The patient is status post suprapubic prostatectomy and with a paraphimosis reduction. PHYSICAL EXAMINATION: VITAL SIGNS: Temperature is 97.6, pulse is 72, respirations 20, blood pressure of 120/61, with O2 saturation of 95% on room air. CHEST: Clear to auscultation bilaterally. HEART: Regular rate and rhythm. Normal S1, S2. ABDOMEN: Positive bowel sounds. Soft, nontender, nondistended. There is no hepatosplenomegaly noted. EXTREMITIES: There is no cyanosis, no clubbing, or edema. Pulses are 2+ and equal bilaterally throughout. The patient has IVETH hose in place with SCDs. NEUROLOGIC: The patient is awake, alert, he is oriented x3. : This patient's cerclage, sutures were removed and the patient paraphimosis was reduced. Wound appears to be okay. LABORATORY DATA: The patient's CBC revealed WBC of 8.6, hemoglobin of 10.4, hematocrit of 29.1 with a platelet count of 135. This patient's chemistries reveal a sodium of 138, potassium 4.0, chloride of 108, CO2 of 23, BUN of 12, creatinine of 0.7 with a glucose of 97, and calcium of 8.2. ASSESSMENT AND PLAN: 1. BPH status post suprapubic prostatectomy: The patient successfully underwent prostatectomy. The patient at this time is to continue with Oxybutynin 5 mg p.o. t.i.d. and postop care. The patient had the cerclage sutures removed and paraphimosis reduced. The patient's wound appears to be okay. 2. Deconditioned state: The patient is to continue with some physical therapy. 3. Constipation: The patient has been given Colace 200 mg tablet at bedtime p.r.n. constipation. 4. Gastroesophageal reflux disease: The patient is to continue on Pepcid 20 mg IV every 12 hours. 5. Elevated blood pressure: The patient does not have hypertension by history; however, the patient is to be given metoprolol tartrate 5 mg IV q.6 hours p.r.n. systolic blood pressure greater than 160 or diastolic blood pressure greater than 90. 6. Insomnia: The patient wished to be given some Ambien 5 mg p.o. at bedtime p.r.n. insomnia. Cecil Mcclure MD /EMMANUEL/[facility] Progress Note PATIENT NAME: BETH FELICIANO PHYSICIAN: Cecil Mcclure MD Admitted: MR NUMBER: [id number] DISCHARGED: DATE OF SERVICE: 06/07/2017 SUBJECTIVE: The patient is stable. The patient is status post suprapubic prostatectomy and with a paraphimosis reduction. PHYSICAL EXAMINATION: VITAL SIGNS: Temperature is 97.6, pulse is 72, respirations 20, blood pressure of 120/61, with O2 saturation of 95% on room air. CHEST: Clear to auscultation bilaterally. HEART: Regular rate and rhythm. Normal S1, S2. ABDOMEN: Positive bowel sounds. Soft, nontender, nondistended. There is no hepatosplenomegaly noted. EXTREMITIES: There is no cyanosis, no clubbing, or edema. Pulses are 2+ and equal bilaterally throughout. The patient has IVETH hose in place with SCDs. NEUROLOGIC: The patient is awake, alert, he is oriented x3. : This patient's cerclage, sutures were removed and the patient paraphimosis was reduced. Wound appears to be okay. LABORATORY DATA: The patient's CBC revealed WBC of 8.6, hemoglobin of 10.4, hematocrit of 29.1 with a platelet count of 135. This patient's chemistries reveal a sodium of 138, potassium 4.0, chloride of 108, CO2 of 23, BUN of 12, creatinine of 0.7 with a glucose of 97, and calcium of 8.2. ASSESSMENT AND PLAN: 1. BPH status post suprapubic prostatectomy: The patient successfully underwent prostatectomy. The patient at this time is to continue with Oxybutynin 5 mg p.o. t.i.d. and postop care. The patient had the cerclage sutures removed and paraphimosis reduced. The patient's wound appears to be okay. 2. Deconditioned state: The patient is to continue with some physical therapy. 3. Constipation: The patient has been given Colace 200 mg tablet at bedtime p.r.n. constipation. 4. Gastroesophageal reflux disease: The patient is to continue on Pepcid 20 mg IV every 12 hours. 5. Elevated blood pressure: The patient does not have hypertension by history; however, the patient is to be given metoprolol tartrate 5 mg IV q.6 hours p.r.n. systolic blood pressure greater than 160 or diastolic blood pressure greater than 90. 6. Insomnia: The patient wished to be given some Ambien 5 mg p.o. at bedtime p.r.n. insomnia. MD BENJAMÍN Wright/EMMANUEL/BONNIE Patient Name: BETH FELICIANO TD: 06/07/2017 18:07 CC:Cecil Mcclure MD Patient Name: BETH FELICIANO TD: 06/07/2017 18:07 CC:Cecil Mcclure MD Electronically Authenticated by: Cecil Mcclure MD On 06/18/2017 08:[address] [facility] 2017-06-18 08:07:45 [facility] enter Progress Note PATIENT NAME: JODIEBETH PHYSICIAN: Cecil Mcclure MD Admitted: MR NUMBER: [id number] DISCHARGED: DATE OF SERVICE: 06/08/2017. SUBJECTIVE: This patient is stable. The patient's urine is clear. The patient denied any complaints. PHYSICAL EXAMINATION: VITAL SIGNS: Temperature is 98.1. He has a pulse of 80, respiratory rate 18, and a blood pressure of 124/65. CHEST: Clear to auscultation bilaterally. HEART: Regular rate and rhythm. Normal S1, S2. ABDOMEN: Positive bowel sounds. Soft, nontender, nondistended. There is no hepatosplenomegaly noted. EXTREMITIES: There is no cyanosis, no clubbing, or edema. Pulses are 2+ and equal bilaterally throughout. NEUROLOGIC: This patient is awake, alert, oriented x3. LABORATORY DATA: The patient's chemistries reveal sodium of 135, potassium 3.4, chloride of 102, CO2 of 24, BUN of 9, creatinine of 0.9, blood glucose of 103, anion gap of 9, calcium of 8.3. The patient's GFR is greater than 60. The patient's CBC reveal a WBC of 8.6, hemoglobin of 10.1, hematocrit of 28.4 with a platelet count of 130. ASSESSMENT AND PLAN: 1. Status post prostatectomy: The patient has done well status post surgery. The patient to continue with current regimen as determined by Dr. Moya, the urologist. 2. Deconditioned state: The patient has been seen by physical therapy. 3. Constipation: The patient will continue Colace 100 mg p.o. b.i.d. 4. Gastroesophageal disease: The patient is to continue Pepcid 20 mg IV every 12 hours. 5. Hypertension: The patient's blood pressure is well controlled with metoprolol. 6. Disposition: The patient could potentially be discharged home as per urology. MD BENJAMÍN Wright/ARUNA/BRETT TD: 06/08/2017 22:29 CC:Cecil Mcclure MD [facility] Progress Note PATIENT NAME: BETH FELICIANO PHYSICIAN: Cecil Mcclure MD Admitted: MR NUMBER: [id number] DISCHARGED: DATE OF SERVICE: 06/08/2017. SUBJECTIVE: This patient is stable. The patient's urine is clear. The patient denied any complaints. PHYSICAL EXAMINATION: VITAL SIGNS: Temperature is 98.1. He has a pulse of 80, respiratory rate 18, and a blood pressure of 124/65. CHEST: Clear to auscultation bilaterally. HEART: Regular rate and rhythm. Normal S1, S2. ABDOMEN: Positive bowel sounds. Soft, nontender, nondistended. There is no hepatosplenomegaly noted. EXTREMITIES: There is no cyanosis, no clubbing, or edema. Pulses are 2+ and equal bilaterally throughout. NEUROLOGIC: This patient is awake, alert, oriented x3. LABORATORY DATA: The patient's chemistries reveal sodium of 135, potassium 3.4, chloride of 102, CO2 of 24, BUN of 9, creatinine of 0.9, blood glucose of 103, anion gap of 9, calcium of 8.3. The patient's GFR is greater than 60. The patient's CBC reveal a WBC of 8.6, hemoglobin of 10.1, hematocrit of 28.4 with a platelet count of 130. ASSESSMENT AND PLAN: 1. Status post prostatectomy: The patient has done well status post surgery. The patient to continue with current regimen as determined by Dr. Moya, the urologist. 2. Deconditioned state: The patient has been seen by physical therapy. 3. Constipation: The patient will continue Colace 100 mg p.o. b.i.d. 4. Gastroesophageal disease: The patient is to continue Pepcid 20 mg IV every 12 hours. 5. Hypertension: The patient's blood pressure is well controlled with metoprolol. 6. Disposition: The patient could potentially be discharged home as per urology. MD BENJAMÍN Wright/SWA/BRETT TD: 06/08/2017 22:29 CC:Cecil Mcclure MD Electronically Authenticated by: Cecil Mcclure MD On 06/18/2017 08:[address] [facility] 2017-06-17 14:21:28 [facility] enter Consultation PATIENT NAME: BETH FELICIANO PHYSICIAN: Canelo Mclaughlin MD Admitted: MR NUMBER: [id number] DISCHARGED: DATE OF CONSULTATION: 06/05/2017 CHIEF COMPLAINT: Medical management. HISTORY OF PRESENT ILLNESS: This is a 67-year-old male with history of BPH, calculus in the bladder, gross hematuria, UTI, incomplete bladder emptying, admitted for suprapubic prostatectomy. The patient underwent a suprapubic prostatectomy this morning, 06/05/2017. The patient seen in ICU. The patient denied shortness of breath, chest pain, dizziness. The patient denies nausea, vomiting, diarrhea. REVIEW OF SYSTEMS: A 10-point review of system has been performed. Pertinent positives and negatives symptoms have been identified in H and P, otherwise negative. PAST MEDICAL HISTORY: BPH, gross hematuria, calculus in the bladder, UTI, incomplete bladder emptying. FAMILY HISTORY: Noncontributory. MEDICATIONS: Reviewed. ALLERGIES: NO KNOWN DRUG ALLERGIES. SOCIAL HISTORY: Smoking occasionally, alcohol occasionally. Denies illicit drugs. PHYSICAL EXAMINATION: GENERAL: The patient is awake, alert, oriented, not in respiratory distress. VITAL SIGNS: Blood pressure 135/63, heart rate 62, respirations 15. LUNGS: Clear to auscultation. CARDIOVASCULAR: S1, S2. Regular. No murmur. ABDOMEN: Soft, mild tenderness to the surgical wound. Continuous bladder irrigation. EXTREMITIES: No edema. LABORATORY DATA: Reviewed, pH 7.36, pCO2 35, pO2 241. Pending blood tests. Urinalysis is normal. Previous labs from 05/30/2017, WBC 4.6, hemoglobin 14.9, platelets 255. INR 1.01, aPTT 31.6. Sodium 137, potassium 4.0, chloride 99, carbon dioxide 24, BUN 17, creatinine 0.9, glucose 84, anion gap 14. Urine culture from 05/30/2017 positive for Morganella morganii, multidrug-resistant organism, which is susceptible to cefepime, meropenem. Chest x-ray: No acute cardiopulmonary abnormalities, 05/30/2017. [facility] Consultation PATIENT NAME: BETH FELICIANO PHYSICIAN: Canelo Mclaughlin MD Admitted: MR NUMBER: [id number] DISCHARGED: DATE OF CONSULTATION: 06/05/2017 CHIEF COMPLAINT: Medical management. HISTORY OF PRESENT ILLNESS: This is a 67-year-old male with history of BPH, calculus in the bladder, gross hematuria, UTI, incomplete bladder emptying, admitted for suprapubic prostatectomy. The patient underwent a suprapubic prostatectomy this morning, 06/05/2017. The patient seen in ICU. The patient denied shortness of breath, chest pain, dizziness. The patient denies nausea, vomiting, diarrhea. REVIEW OF SYSTEMS: A 10-point review of system has been performed. Pertinent positives and negatives symptoms have been identified in H and P, otherwise negative. PAST MEDICAL HISTORY: BPH, gross hematuria, calculus in the bladder, UTI, incomplete bladder emptying. FAMILY HISTORY: Noncontributory. MEDICATIONS: Reviewed. ALLERGIES: NO KNOWN DRUG ALLERGIES. SOCIAL HISTORY: Smoking occasionally, alcohol occasionally. Denies illicit drugs. PHYSICAL EXAMINATION: GENERAL: The patient is awake, alert, oriented, not in respiratory distress. VITAL SIGNS: Blood pressure 135/63, heart rate 62, respirations 15. LUNGS: Clear to auscultation. CARDIOVASCULAR: S1, S2. Regular. No murmur. ABDOMEN: Soft, mild tenderness to the surgical wound. Continuous bladder irrigation. EXTREMITIES: No edema. LABORATORY DATA: Reviewed, pH 7.36, pCO2 35, pO2 241. Pending blood tests. Urinalysis is normal. Previous labs from 05/30/2017, WBC 4.6, hemoglobin 14.9, platelets 255. INR 1.01, aPTT 31.6. Sodium 137, potassium 4.0, chloride 99, carbon dioxide 24, BUN 17, creatinine 0.9, glucose 84, anion gap 14. Urine culture from 05/30/2017 positive for Morganella morganii, multidrug-resistant organism, which is susceptible to cefepime, meropenem. Chest x-ray: No acute cardiopulmonary abnormalities, 05/30/2017. Patient Name: BETH FEILCIANO DISPOSITION: After ICU stay, the patient may go to the floor. Anticipating hospitalization for 2-3 days. Follow with . ASSESSMENT AND PLAN: 1. Benign prostatic hypertrophy with obstructive outlet syndrome, status post suprapubic prostatectomy. 2. Bladder calculus. 3. History of urinary tract infection. 4. Deep venous thrombosis prophylaxis. Sequential compression device for now, since the patient recently had surgery. MD MORALES Chawla/ADRIAN TD: 06/05/2017 17:34 CC:Canelo Thurman MD([employer]) Patient Name: BETH FELICIANO DISPOSITION: After ICU stay, the patient may go to the floor. Anticipating hospitalization for 2-3 days. Follow with . ASSESSMENT AND PLAN: 1. Benign prostatic hypertrophy with obstructive outlet syndrome, status post suprapubic prostatectomy. 2. Bladder calculus. 3. History of urinary tract infection. 4. Deep venous thrombosis prophylaxis. Sequential compression device for now, since the patient recently had surgery. MD MORALES Chawla/ADRIAN TD: 06/05/2017 17:34 CC:Canelo Thurman MD([employer]) Electronically Authenticated by: Neo Thurman MD On 06/17/2017 02:[address] [facility] 2017-06-11 16:24:02 [facility] enter Discharge Summary PATIENT NAME: BETH FELICIANO PHYSICIAN: Iris Nolen MD Admitted: MR NUMBER: [id number] DISCHARGED: 06/09/2017 05:35:00 ADMISSION DIAGNOSES: 1. Benign prostatic hypertrophy with obstructive urinary symptoms. 2. Bladder calculi. DISCHARGE DIAGNOSES: 1. Benign prostatic hypertrophy with obstructive urinary symptoms. 2. Bladder calculi. PROCEDURES PERFORMED: Suprapubic prostatectomy and open cystolitholapaxy. CONSULTATIONS: None. COMPLICATIONS: None. HOSPITAL COURSE: Mr. Feliciano presented electively on 06/05/2017 for suprapubic prostatectomy and open cystolitholapaxy, which he tolerated well. He was transferred to the ICU following surgery for observation on continuous bladder irrigation. On 06/06/2017, his Hart catheter was taken off traction and continuous bladder irrigation was continued. On 06/07/2017, the cerclage stitch was removed and continuous bladder irrigation was weaned. On 06/08/2017, his Malecot drain was removed and continuous bladder irrigation was continued through his urethral catheter, which was a 3-way 22-Saudi Arabian Hart catheter. On 06/09/2017, his SUZETTE tube was then removed. The patient's diet was advanced to regular, for which on the day of discharge, he was tolerating well with no nausea, no vomiting. He was having bowel movements and regular flatus. His pain was controlled on oral pain medication. The patient was determined to be stable for discharge. DISCHARGE DIET: Regular. DISCHARGE MEDICATIONS: 1. Keflex. 2. Tramadol 3. Oxybutynin p.r.n. 4. Colace. FOLLOWUP: The patient is to follow up with Dr. Jessica Costa in about 10 days with a pre-clinic cystogram for Hart catheter removal and staple removal. DISPOSITION AT DISCHARGE: The patient to be discharged home where his sisters will help care for him. [facility] Discharge Summary PATIENT NAME: BETH FELICIANO PHYSICIAN: Iris Nolen MD Admitted: MR NUMBER: [id number] DISCHARGED: 06/09/2017 05:35:00 ADMISSION DIAGNOSES: 1. Benign prostatic hypertrophy with obstructive urinary symptoms. 2. Bladder calculi. DISCHARGE DIAGNOSES: 1. Benign prostatic hypertrophy with obstructive urinary symptoms. 2. Bladder calculi. PROCEDURES PERFORMED: Suprapubic prostatectomy and open cystolitholapaxy. CONSULTATIONS: None. COMPLICATIONS: None. HOSPITAL COURSE: Mr. Feliciano presented electively on 06/05/2017 for suprapubic prostatectomy and open cystolitholapaxy, which he tolerated well. He was transferred to the ICU following surgery for observation on continuous bladder irrigation. On 06/06/2017, his Hart catheter was taken off traction and continuous bladder irrigation was continued. On 06/07/2017, the cerclage stitch was removed and continuous bladder irrigation was weaned. On 06/08/2017, his Malecot drain was removed and continuous bladder irrigation was continued through his urethral catheter, which was a 3-way 22-Saudi Arabian Hart catheter. On 06/09/2017, his SUZETTE tube was then removed. The patient's diet was advanced to regular, for which on the day of discharge, he was tolerating well with no nausea, no vomiting. He was having bowel movements and regular flatus. His pain was controlled on oral pain medication. The patient was determined to be stable for discharge. DISCHARGE DIET: Regular. DISCHARGE MEDICATIONS: 1. Keflex. 2. Tramadol 3. Oxybutynin p.r.n. 4. Colace. FOLLOWUP: The patient is to follow up with Dr. Jessica Costa in about 10 days with a pre-clinic cystogram for Hart catheter removal and staple removal. DISPOSITION AT DISCHARGE: The patient to be discharged home where his sisters will help care for him. Patient Name: BETH FELICIANO Nurses taught the patient how to change catheter bag as well as how to take care of drain sites and dressings. CONDITION AT DISCHARGE: Good. IrisMD Jessica Hernandez MD ALS/ANUPAM TD: 06/11/2017 01:06 CC:Iris Nolen MD([employer] User)([employer]) Jessica Costa MD([employer]) Electronically Authenticated by: Iris Nolen MD On 06/11/2017 04:23 PM [facility] Patient Name: BETH FELICIANO Nurses taught the patient how to change catheter bag as well as how to take care of drain sites and dressings. CONDITION AT DISCHARGE: Good. MD Jessica Kaminski MD ALS/ANUPAM TD: 06/11/2017 01:06 CC:Iris Nolen MD([employer] User)([employer]) Jessica Costa MD([employer]) Electronically Authenticated by: Iris Nolen MD On 06/11/2017 04:23 PM [facility] Electronically Authenticated by: Jessica Costa MD On 06/16/2017 11:17 AM [facility] 2017-06-07 16:55:03 [facility] enter Operative Report/Procedure PATIENT NAME: BETH FELICIANO PHYSICIAN: Iris Nolen MD Admitted: MR NUMBER: [id number] DISCHARGED: DATE OF SURGERY: 06/05/2017 PREOPERATIVE DIAGNOSES: Bladder stones and benign prostatic hypertrophy. POSTOPERATIVE DIAGNOSES: Bladder stones, benign prostatic hypertrophy. SURGEON: Jessica Costa MD RELIABILITY SPECIALIST: Iris Nolen MD PROCEDURES PERFORMED: 1. Cystolitholapaxy. 2. Suprapubic prostatectomy. ANESTHESIA: General. COMPLICATIONS: None. ESTIMATED BLOOD LOSS: 850 mL SPECIMENS: 1. Prostate. 2. Bladder stones. TUBES: 1. Right side 19-Saudi Arabian SUZETTE drain. 2. Left side 22-Saudi Arabian Malecot. 3. A chest tube with cerclage stitch of button in the midline. 4. A 3-way Hart catheter. INDICATIONS: Mr. Feliciano is a 67-year-old male with a past medical history of lower urinary tract symptoms. The patient is known to have bladder stones and an enlarged prostate. He presents today for the above-listed procedure. PROCEDURE IN DETAIL: The patient was identified and informed consent was obtained. He was taken to the operating suite, where he was placed in the supine position and general anesthesia was induced. A time-out was called to confirm the correct patient, procedure, and site. The genitalia were shaved, prepped and draped in the usual sterile fashion. A midline infraumbilical incision was made with a 15 blade. Dissection was carried down to the fascia. The fascia was incised in the midline and this exposed the bladder. The space [facility] Operative Report/Procedure PATIENT NAME: BETH FELICIANO PHYSICIAN: Iris Nolen MD Admitted: MR NUMBER: [id number] DISCHARGED: DATE OF SURGERY: 06/05/2017 PREOPERATIVE DIAGNOSES: Bladder stones and benign prostatic hypertrophy. POSTOPERATIVE DIAGNOSES: Bladder stones, benign prostatic hypertrophy. SURGEON: Jessica Costa MD RELIABILITY SPECIALIST: Iris Nolen MD PROCEDURES PERFORMED: 1. Cystolitholapaxy. 2. Suprapubic prostatectomy. ANESTHESIA: General. COMPLICATIONS: None. ESTIMATED BLOOD LOSS: 850 mL SPECIMENS: 1. Prostate. 2. Bladder stones. TUBES: 1. Right side 19-Saudi Arabian SUZETTE drain. 2. Left side 22-Saudi Arabian Malecot. 3. A chest tube with cerclage stitch of button in the midline. 4. A 3-way Hart catheter. INDICATIONS: Mr. Feliciano is a 67-year-old male with a past medical history of lower urinary tract symptoms. The patient is known to have bladder stones and an enlarged prostate. He presents today for the above-listed procedure. PROCEDURE IN DETAIL: The patient was identified and informed consent was obtained. He was taken to the operating suite, where he was placed in the supine position and general anesthesia was induced. A time-out was called to confirm the correct patient, procedure, and site. The genitalia were shaved, prepped and draped in the usual sterile fashion. A midline infraumbilical incision was made with a 15 blade. Dissection was carried down to the fascia. The fascia was incised in the midline and this exposed the bladder. The space of [place] Electronically Authenticated by: Jessica Costa MD On 06/16/2017 11:18 AM [facility] Patient Name: BETH FELICIANO was developed with blunt dissection. Two Allis clamps were then placed on the bladder and Bovie electrocautery were used to make a vertical cystotomy. The bladder was opened until all the calculi were able to be removed with use of a ring forceps. After the bladder was free of all the stones, two 3-0 Vicryl sutures were placed along the incision of the bladder as stay sutures. The Omni retractor was then set up and the bladder was retracted with a slotted retractor. Two laps were placed within the bladder to facilitate with cranial retraction of the bladder. Indigo carmine was given intraoperatively to identify the ureteral orifices. The prostate was then scored with Bovie electrocautery. The plane between the prostatic adenoma and the prostatic capsule was developed with blunt dissection. With 1 finger the prostate adenoma was bluntly dissected free from the capsule and all adenoma was then removed. The bladder neck was then oversewn with a running 3-0 Vicryl starting at the midline and running the suture laterally in both directions. A 2-0 PDS suture was then placed as a cerclage stitch around the bladder neck and placed through a chest tube, which will be later advanced through the incision and remain in place for recovery. A 22-Saudi Arabian 3-way Hart catheter was placed into the bladder. The bladder was then closed in a 2 layer fashion, the first layer with a 2-0 Vicryl in a running locking fashion of the mucosa and muscular layer. The second layer was a running 2-0 Vicryl closing the serosal layer. The Hart catheter balloon was then filled with 45 mL of saline. Prior to the closure of the bladder, a Malecot drain was placed through a new cystotomy lateral to the initial vertical cystotomy. This was secured in place with a 4-0 chromic suture. After the bladder was closed, the bladder was irrigated and an area of leaking fluid was oversewn. The bladder was then irrigated again and noted to be watertight. A 10-Saudi Arabian SUZETTE drain was then placed in the right abdomen lateral to the rectus fascia and the drain was secured with a 3-0 nylon. Prior to the closure of the bladder, both laps were removed from the bladder. The fascia was then closed with a running 3-0 Vicryl suture. The skin was then closed with ita. Continuous bladder irrigation was initiated. The patient was then extubated and transferred to PACU in good condition. MD Jessica Kaminski MD ALS/CTV TD: 06/05/2017 18:29 Patient Name: BETH FELICIANO was developed with blunt dissection. Two Allis clamps were then placed on the bladder and Bovie electrocautery were used to make a vertical cystotomy. The bladder was opened until all the calculi were able to be removed with use of a ring forceps. After the bladder was free of all the stones, two 3-0 Vicryl sutures were placed along the incision of the bladder as stay sutures. The Omni retractor was then set up and the bladder was retracted with a slotted retractor. Two laps were placed within the bladder to facilitate with cranial retraction of the bladder. Indigo carmine was given intraoperatively to identify the ureteral orifices. The prostate was then scored with Bovie electrocautery. The plane between the prostatic adenoma and the prostatic capsule was developed with blunt dissection. With 1 finger the prostate adenoma was bluntly dissected free from the capsule and all adenoma was then removed. The bladder neck was then oversewn with a running 3-0 Vicryl starting at the midline and running the suture laterally in both directions. A 2-0 PDS suture was then placed as a cerclage stitch around the bladder neck and placed through a chest tube, which will be later advanced through the incision and remain in place for recovery. A 22-Saudi Arabian 3-way Hart catheter was placed into the bladder. The bladder was then closed in a 2 layer fashion, the first layer with a 2-0 Vicryl in a running locking fashion of the mucosa and muscular layer. The second layer was a running 2-0 Vicryl closing the serosal layer. The Hart catheter balloon was then filled with 45 mL of saline. Prior to the closure of the bladder, a Malecot drain was placed through a new cystotomy lateral to the initial vertical cystotomy. This was secured in place with a 4-0 chromic suture. After the bladder was closed, the bladder was irrigated and an area of leaking fluid was oversewn. The bladder was then irrigated again and noted to be watertight. A 10-Saudi Arabian SUZETTE drain was then placed in the right abdomen lateral to the rectus fascia and the drain was secured with a 3-0 nylon. Prior to the closure of the bladder, both laps were removed from the bladder. The fascia was then closed with a running 3-0 Vicryl suture. The skin was then closed with ita. Continuous bladder irrigation was initiated. The patient was then extubated and transferred to PACU in good condition. MD Jessica Kaminski MD ALS/CTV TD: 06/05/2017 18:29 Patient Name: BETH FELICIANO CC:Iris Nolen MD([employer] User)([employer]) Jessica Costa MD([employer]) Electronically Authenticated by: Iris Nolen MD On 06/07/2017 04:54 PM [facility] Patient Name: BETH FELICIANO CC:Iris Nolen MD([employer] User)([employer]) Jessica Costa MD([employer]) Electronically Authenticated by: Iris Nolen MD On 06/07/2017 04:54 PM [facility] 2017-06-06 11:13:37 [facility] enter Consultation PATIENT NAME: BETH FELICIANO PHYSICIAN: Sebastian Palacio MD Admitted: MR NUMBER: [id number] DISCHARGED: REASON FOR CONSULTATION: Postoperative management. HISTORY OF PRESENT ILLNESS: Briefly, the patient is a 67-year-old male with a known history of prostatic hypertrophy. He underwent elective prostatectomy, partial cystectomy, as well as placement of suprapubic catheter today. He presents to the ICU. Postoperatively, on continuous bladder irrigation. He currently reports some lower pelvic discomfort, some nausea as well. Denies chest pain or shortness of breath. REVIEW OF SYSTEMS: A 10-point review of systems has been performed, pertinent positives and negatives have been reported as above. All others are negative. PAST MEDICAL HISTORY: Prostatic hypertrophy, recurrent bladder stones, and chronic low back pain. FAMILY HISTORY: None relevant. SOCIAL HISTORY: The patient is a former smoker, smoked approximately 1-1/2 pack per day for about 10 years, last cigarette more than 10 years ago. No current alcohol or drug abuse. PAST SURGICAL HISTORY: Prior cystoscopy. HOSPITAL MEDICATIONS: Reviewed by me. Please see MAR for full details. PHYSICAL EXAMINATION: VITAL SIGNS: Blood pressure 145/73, heart rate 77, respiratory rate 14, and oxygenation 96% on room air. GENERAL: The patient is awake, alert and oriented x3, in no acute distress. HEENT: No adenopathy. No JVD. CARDIOVASCULAR: S1, S2 heard. Regular rate and rhythm. LUNGS: Decrease in air entry bilaterally. No wheezing. ABDOMEN: Bowel sounds positive. No organomegaly. EXTREMITIES: No edema. GENITOURINARY: The patient with suprapubic catheter, on continuous bladder irrigation. LABORATORY DATA AND IMAGING: Potassium 3.9, creatinine 0.9. WBC 8.5, hemoglobin 11.6, and platelet 144. ABG, pH 7.36/35/241. ASSESSMENT AND PLAN: [facility] Consultation PATIENT NAME: BETH FELICIANO PHYSICIAN: Sebastian Palacio MD Admitted: MR NUMBER: [id number] DISCHARGED: REASON FOR CONSULTATION: Postoperative management. HISTORY OF PRESENT ILLNESS: Briefly, the patient is a 67-year-old male with a known history of prostatic hypertrophy. He underwent elective prostatectomy, partial cystectomy, as well as placement of suprapubic catheter today. He presents to the ICU. Postoperatively, on continuous bladder irrigation. He currently reports some lower pelvic discomfort, some nausea as well. Denies chest pain or shortness of breath. REVIEW OF SYSTEMS: A 10-point review of systems has been performed, pertinent positives and negatives have been reported as above. All others are negative. PAST MEDICAL HISTORY: Prostatic hypertrophy, recurrent bladder stones, and chronic low back pain. FAMILY HISTORY: None relevant. SOCIAL HISTORY: The patient is a former smoker, smoked approximately 1-1/2 pack per day for about 10 years, last cigarette more than 10 years ago. No current alcohol or drug abuse. PAST SURGICAL HISTORY: Prior cystoscopy. HOSPITAL MEDICATIONS: Reviewed by me. Please see MAR for full details. PHYSICAL EXAMINATION: VITAL SIGNS: Blood pressure 145/73, heart rate 77, respiratory rate 14, and oxygenation 96% on room air. GENERAL: The patient is awake, alert and oriented x3, in no acute distress. HEENT: No adenopathy. No JVD. CARDIOVASCULAR: S1, S2 heard. Regular rate and rhythm. LUNGS: Decrease in air entry bilaterally. No wheezing. ABDOMEN: Bowel sounds positive. No organomegaly. EXTREMITIES: No edema. GENITOURINARY: The patient with suprapubic catheter, on continuous bladder irrigation. LABORATORY DATA AND IMAGING: Potassium 3.9, creatinine 0.9. WBC 8.5, hemoglobin 11.6, and platelet 144. ABG, pH 7.36/35/241. ASSESSMENT AND PLAN: Patient Name: BETH FELICIANO 1. Status post suprapubic catheter placement. 2. Status post prostatectomy and partial cystectomy. PLAN: The patient is doing well postoperatively, no immediate postoperative complications. We will continue with bladder irrigation, to be titrated per urology team. Management of postoperative site per urology team. Continue with postoperative monitoring, maintain n.p.o. status for now, and advance diet as tolerated. MD ALBIN Lnyn/EMMANUEL TD: 06/05/2017 17:16 Patient Name: BETH FELICIANO 1. Status post suprapubic catheter placement. 2. Status post prostatectomy and partial cystectomy. PLAN: The patient is doing well postoperatively, no immediate postoperative complications. We will continue with bladder irrigation, to be titrated per urology team. Management of postoperative site per urology team. Continue with postoperative monitoring, maintain n.p.o. status for now, and advance diet as tolerated. MD NERIS Lynn TD: 06/05/2017 17:16 Electronically Authenticated by: Sebastian Palacio MD On 06/06/2017 11:[address] [facility] 2017-06-06 11:13:11 [facility] enter Progress Note PATIENT NAME: BETH FELICIANO PHYSICIAN: Sebastian Palacio MD Admitted: MR NUMBER: [id number] DISCHARGED: SUBJECTIVE: The patient seen and examined at bedside. Overnight events, nursing documentation as well as EMR documentation is reviewed. No significant events overnight, urine color remains pink, remains on continuous bladder irrigation. MEDICATIONS: Reviewed by me. Please see MAR for full details. Of note, the patient on cefazolin, oxybutynin. OBJECTIVE: VITAL SIGNS: Blood pressure 129/60, heart rate 68, respiratory rate 14, oxygenation 98%. GENERAL: The patient is awake, alert, oriented x3, no acute distress. HEENT: No palpable adenopathy or thyromegaly. HEART: S1, S2 heard, regular rate and rhythm. LUNGS: Slight decreased air entry bilaterally. No wheezing. ABDOMEN: Bowel sounds positive. No organomegaly. Suprapubic catheter appears intact. Hatr catheter draining yellow urine. EXTREMITIES: No edema. LABORATORY DATA AND IMAGING: WBC 11.7, hemoglobin 10.9, platelet 153. Potassium 4.0, creatinine 0.9. ASSESSMENT: 1. Status post prostatectomy and partial cystectomy. 2. Status post suprapubic catheter placement. PLAN: The patient's hemodynamics remained stable, he remains on continuous bladder irrigation per Urology team. Once urine clears, this can be discontinued. The patient to remain in ICU during continuous bladder irrigation, continue to monitor output and hemodynamic support. Management of the operative site per surgical team. MD ALBIN Lynn/JEREMY TD: 06/06/2017 09:46 [facility] Progress Note PATIENT NAME: BETH FELICIANO PHYSICIAN: Sebastian Palacio MD Admitted: MR NUMBER: [id number] DISCHARGED: SUBJECTIVE: The patient seen and examined at bedside. Overnight events, nursing documentation as well as EMR documentation is reviewed. No significant events overnight, urine color remains pink, remains on continuous bladder irrigation. MEDICATIONS: Reviewed by me. Please see MAR for full details. Of note, the patient on cefazolin, oxybutynin. OBJECTIVE: VITAL SIGNS: Blood pressure 129/60, heart rate 68, respiratory rate 14, oxygenation 98%. GENERAL: The patient is awake, alert, oriented x3, no acute distress. HEENT: No palpable adenopathy or thyromegaly. HEART: S1, S2 heard, regular rate and rhythm. LUNGS: Slight decreased air entry bilaterally. No wheezing. ABDOMEN: Bowel sounds positive. No organomegaly. Suprapubic catheter appears intact. Hart catheter draining yellow urine. EXTREMITIES: No edema. LABORATORY DATA AND IMAGING: WBC 11.7, hemoglobin 10.9, platelet 153. Potassium 4.0, creatinine 0.9. ASSESSMENT: 1. Status post prostatectomy and partial cystectomy. 2. Status post suprapubic catheter placement. PLAN: The patient's hemodynamics remained stable, he remains on continuous bladder irrigation per Urology team. Once urine clears, this can be discontinued. The patient to remain in ICU during continuous bladder irrigation, continue to monitor output and hemodynamic support. Management of the operative site per surgical team. MD ALBIN Lynn/JEREMY TD: 06/06/2017 09:46 Electronically Authenticated by: Sebastian Palacio MD On 06/06/2017 11:[address] [facility] 2017-05-20 12:09:57 [facility] enter Discharge Summary PATIENT NAME: BETH FELICIANO PHYSICIAN: Amaury Mejia MD Admitted: MR NUMBER: [id number] DISCHARGED: 05/06/2017 07:44:00 DATE OF ADMISSION: 05/06/2017. DATE OF DISCHARGE: 05/06/2017. ADMISSION DIAGNOSES: Benign prostatic hypertrophy with urinary obstruction. DISCHARGE DIAGNOSES: 1. Benign prostatic hypertrophy with urinary obstruction. 2. Chronic abnormal EKG changes. PROCEDURES PERFORMED: None. ADMITTING ATTENDING: Jessica Costa MD HISTORY OF PRESENT ILLNESS: The patient is a 67-year-old male, who is coming in for suprapubic prostatectomy; however, while being monitored before anesthesia, had ST-elevation in his EKG. The patient's case was canceled and transferred to ICU for possible STEMI; however, cardiology evaluated and ruled that these changes were chronic in nature. The patient was also asymptomatic. It was therefore decided to complete the patient's workup with an echo and a stress test prior to surgery. The patient was discharged from the ICU, at the conclusion of the studies. DISCHARGE DISPOSITION: The patient will follow up with us for rescheduling of suprapubic prostatectomy. MD TEMI Polanco/SKIP TD: 05/20/2017 08:42 Electronically Authenticated and Edited by: Amaury Mejia MD On 05/20/2017 12:09 PM CDT [facility] Discharge Summary PATIENT NAME: BETH FELICIANO PHYSICIAN: Amaury Mejia MD Admitted: MR NUMBER: [id number] DISCHARGED: 05/06/2017 07:44:00 DATE OF ADMISSION: 05/06/2017. DATE OF DISCHARGE: 05/06/2017. ADMISSION DIAGNOSES: Benign prostatic hypertrophy with urinary obstruction. DISCHARGE DIAGNOSES: 1. Benign prostatic hypertrophy with urinary obstruction. 2. Chronic abnormal EKG changes. PROCEDURES PERFORMED: None. ADMITTING ATTENDING: Jessica Costa MD HISTORY OF PRESENT ILLNESS: The patient is a 67-year-old male, who is coming in for suprapubic prostatectomy; however, while being monitored before anesthesia, had ST-elevation in his EKG. The patient's case was canceled and transferred to ICU for possible STEMI; however, cardiology evaluated and ruled that these changes were chronic in nature. The patient was also asymptomatic. It was therefore decided to complete the patient's workup with an echo and a stress test prior to surgery. The patient was discharged from the ICU, at the conclusion of the studies. DISCHARGE DISPOSITION: The patient will follow up with us for rescheduling of suprapubic prostatectomy. MD TEMI Polanco/SKIP TD: 05/20/2017 08:42 Electronically Authenticated and Edited by: Amaury Mejia MD On 05/20/2017 12:09 PM CDT Electronically Authenticated by: Jessica Costa MD On 05/29/2017 08:35 AM [facility] 2017-05-06 16:44:09 [facility] enter Consultation PATIENT NAME: BETH FELICIANO PHYSICIAN: Jameson Ndiaye MD Admitted: MR NUMBER: [id number] DISCHARGED: TYPE OF CONSULTATION: Cardiology consultation. HISTORY OF PRESENT ILLNESS: The patient is a 67-year-old male referred from surgery for evaluation of abnormal EKG. Apparently, this gentleman was having urological surgery with suprapubic prostatectomy and while he was going to be under the anesthesia, EKG was done, which showed diffuse ST-T changes across the precordial leads and the surgery was canceled for a cardiac evaluation. This patient has been seen by Dr. Harris on February 04 and he had been evaluated in detail at that time. He denies any history of diabetes, hypertension or hyperlipidemia. No history of any coronary artery disease, history of syncope, stroke. He had the same EKG changes what was noted on today on the EKG, which was done on 09/18/[address]-T changes across the precordial leads. REVIEW OF SYSTEMS: Otherwise, cardiac malave unchanged. MEDICATIONS AT HOME: Had been finasteride and tamsulosin. PHYSICAL EXAMINATION: GENERAL: His clinical examination at this revealed, the patient to be alert and oriented. Denies any chest pain rate. VITAL SIGNS: Pulse rate is 54, blood pressure is 134/76, and respirations 16. HEENT: Grossly unchanged. NECK: Supple. No JVD noted. Carotid upstroke was normal. No new bruits are heard. CARDIOVASCULAR: PMI left intercostal space midclavicular line. S1 was soft. A2 is prominent. LUNGS: Clear. ABDOMEN: Soft, nontender. EXTREMITIES: Unchanged. LABORATORY DATA: EKG shows sinus rhythm with diffuse ST-T changes across the precordial leads, which are essentially compared to the previous EKG unchanged. CLINICAL IMPRESSION: Diffuse ST-T changes with no history of cardiac history of any significance. PLAN: Is to get an echocardiography as this was supposed to be in place before and if the echo shows normal LV systolic function and if his rest of the labs are unremarkable, the patient is stable from the cardiac point of view for the contemplated surgery with the usual precautions and I will follow the patient's management along with you. [facility] Consultation PATIENT NAME: BETH FELICIANO PHYSICIAN: Jameson Ndiaye MD Admitted: MR NUMBER: [id number] DISCHARGED: TYPE OF CONSULTATION: Cardiology consultation. HISTORY OF PRESENT ILLNESS: The patient is a 67-year-old male referred from surgery for evaluation of abnormal EKG. Apparently, this gentleman was having urological surgery with suprapubic prostatectomy and while he was going to be under the anesthesia, EKG was done, which showed diffuse ST-T changes across the precordial leads and the surgery was canceled for a cardiac evaluation. This patient has been seen by Dr. Harris on February 04 and he had been evaluated in detail at that time. He denies any history of diabetes, hypertension or hyperlipidemia. No history of any coronary artery disease, history of syncope, stroke. He had the same EKG changes what was noted on today on the EKG, which was done on 09/18/[address]-T changes across the precordial leads. REVIEW OF SYSTEMS: Otherwise, cardiac malave unchanged. MEDICATIONS AT HOME: Had been finasteride and tamsulosin. PHYSICAL EXAMINATION: GENERAL: His clinical examination at this revealed, the patient to be alert and oriented. Denies any chest pain rate. VITAL SIGNS: Pulse rate is 54, blood pressure is 134/76, and respirations 16. HEENT: Grossly unchanged. NECK: Supple. No JVD noted. Carotid upstroke was normal. No new bruits are heard. CARDIOVASCULAR: PMI left intercostal space midclavicular line. S1 was soft. A2 is prominent. LUNGS: Clear. ABDOMEN: Soft, nontender. EXTREMITIES: Unchanged. LABORATORY DATA: EKG shows sinus rhythm with diffuse ST-T changes across the precordial leads, which are essentially compared to the previous EKG unchanged. CLINICAL IMPRESSION: Diffuse ST-T changes with no history of cardiac history of any significance. PLAN: Is to get an echocardiography as this was supposed to be in place before and if the echo shows normal LV systolic function and if his rest of the labs are unremarkable, the patient is stable from the cardiac point of view for the contemplated surgery with the usual precautions and I will follow the patient's management along with you. Patient Name: BETH FELICIANO MD GUERO Pal/RAUL TD: 05/06/2017 12:24 CC:Jameson Ndiaye MD([employer]) Patient Name: BETH FELICIANO MD GUERO Pal/RAUL TD: 05/06/2017 12:24 CC:Jameson Ndiaye MD([employer]) Electronically Authenticated by: Jameson Ndiaye MD On 05/06/2017 04:44 PM CDT [facility]
[2024-09-24] MEDS ORDERED: NA CHLORIDE 0.9% 1,000 ML ONE (20:27)
[2024-09-24] MEDS ORDERED: ONDANSETRON 4 MG/2 ML VIAL ONE (20:27)
[2024-09-24] MEDS ORDERED: MORPHINE 4 MG/ML SYR ONE (20:27)
[2024-09-24 21:00] LABS: Absolute Basophils 0.1 K/uL (0-0.5); Absolute Lymphocytes (CBC) 0.7 K/uL (0.7-4.9); Absolute Monocytes 0.1 K/uL (0.1-1.3); Absolute Neutrophil 7.6 K/uL (1.8-8.0); Basophils % 0.7 % (0-1.3); Eosinophils % 0.1 % (0-4.4); Hematocrit 45.5 % (39.6-49.0); Hemoglobin 15.5 g/dL (13.6-17.9); Lymphocytes % 7.9 % (15.3-44.8); MCH 29.9 pg (27.0-35.0); MCHC 34.1 g/dL (32.0-36.0); MCV 87.8 fL (80-100); MPV 9.7 fL (7.6-11.3); Monocytes % 1.2 % (3.3-12.3); Neutrophils % 90.1 % (41.7-73.7); Nucleated Red Blood Cells % 0.1 % (0-0); Platelets 168 thou/uL (152-406); RBC Red Blood Cell Count 5.18 M/uL (4.33-5.43); Red Cell Distribution Width 13.4 % (12.1-15.2)
[2024-09-24 21:07] LABS: Sqamous Epithelial <5 /HPF (None Seen); Urine Bacteria <20 /HPF (<20); Urine Bilirubin NEGATIVE (Negative); Urine Blood Negative (Negative); Urine Clarity Turbid (Clear); Urine Color Light-Yellow (Yellow); Urine Culture Reflex Order REFLEXED; Urine Glucose NEGATIVE (Negative); Urine Ketones 1+ (Negative); Urine Microscopic Reflex YN ORDER UMIC; Urine Mucus 1+ /HPF (None Seen); Urine Nitrite 2+ (Negative); Urine Protein NEGATIVE (Negative); Urine RBC <5 /HPF (None Seen); Urine Urobilinogen Normal (Normal); Urine WBC 20-50 /HPF (<5); Urine WBC Clump Rare /HPF (None Seen); Urine Yeast (Budding) Trace /HPF (None Seen)
[2024-09-24 21:16] LABS: Albumin 3.4 g/dL (3.4-5.0); Albumin/Globulin Ratio 0.7 (1.1-1.8); Anion Gap 9.5 mEq/L (5.0-15.0); Bilirubin Total 1.4 mg/dL (0.2-1.0); Globulin 4.6 g/dL (2.3-3.5); Potassium 3.5 mEq/L (3.5-5.1)
[2024-09-24 21:42] LABS: Blood Morphology Comment NOT SEEN (NOT SEEN); Platelet Estimate ADEQ; White Blood Cell Scan OK (OK)
--- NOTE | 2024-09-24 22:25 | RAD REPORT ---
EXAMINATION: CT ABDOMEN AND PELVIS WITH CONTRAST CLINICAL INDICATION: Male, 74 years old.groin pain TECHNIQUE: CT abdomen and pelvis was performed, after the administration of IV contrast, as [facility]. Axial, sagittal and coronal reconstructions were obtained. One or more of the following dose reduction techniques were used: Automated exposure control, adjustment of the mA and/o r kV according to patient size, and/or iterative reconstruction. Unless otherwise specified, incidental findings do not require dedicated imaging follow-up. [id number]. COMPARISON: 09/03/2016 FINDINGS: LOWER CHEST: No acute process identified.Moderate cardiomegaly. Mild circumferential thickening of th e distal esophagus which could reflect esophagitis. UPPER GI: No significant abnormality. LIVER: Hepatic steatosis, but otherwise unremarkable. GALLBLADDER/BILE DUCTS: No biliary ductal dilatation.? PANCREAS: No mass, ductal dilation, or erick-pancreatic fluid. SPLEEN: Unremarkable. ADRENALS: No adrenal masses. KIDNEYS AND URETERS: No hydronephrosis.Low density and/or too small to characterize renal lesions whi ch are statistically benign.No renal calculi. ABDOMINAL AORTA AND OTHER VESSELS: Mild atherosclerotic changes. PERITONEUM: No abnormal free fluid. No free air. LYMPH NODES: No pathologic lymphadenopathy. ABDOMINAL WALL: Large right inguinal hernia containing portions of bowel. There is fluid within the r ight inguinal hernia. SMALL BOWEL/COLON: Bowel containing right inguinal hernia with a short segment of wall thickening and possibly inflammatory changes.Normal appendix. Moderate formed stool burden. Small fat-containing left inguinal hernia. URINARY BLADDER: Distended bladder gallbladder wall thickening. REPRODUCTIVE ORGANS: Prostatomegaly. Prior TURP. MUSCULOSKELETAL: Multilevel degenerative changes in the spine. No acute fracture. ADDITIONAL FINDINGS: None. IMPRESSION: Interval enlargement of the right inguinal hernia which now contains both bowel as well as fluid. Sarath e focal wall thickening is also noted of the bowel within the hernia which raises concern for inflammation, possibly secondary to incarceration/strangulation. No bowel obstruction this time.
[2024-09-24] MEDS ORDERED: MIDAZOLAM HCL 2 MG/2 ML INJ ONE (23:19)
[2024-09-24] MEDS ORDERED: FENTANYL CITR 100 MCG/2 ML ONE (23:21)
--- NOTE | 2024-09-24 23:37 | ER ---
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 patient states the pain is intermittent, and reports it to be a 10/10 on the pain scale. Coronavirus screen: At this time, the client does not indicate any symptoms associated with coronavirus-19. Ebola Screen: No symptoms or risks identified at this time. Initial Sepsis Screen: Does the patient meet any 2 criteria? No. Patient's initial sepsis screen is negative. Does the patient have a suspected source of infection? No. Patient's initial sepsis screen is negative. Risk Assessment: Do you want to hurt yourself or someone else? Patient reports no desire to harm self or others. Onset of symptoms was September 24, 2024. 18:09 Method Of Arrival: Ambulatory ap3 18:09 Acuity: CHUYITA 3 ap3 Triage Assessment: 18:12 General: Appears in no apparent distress. Behavior is calm, cooperative, appropriate ap3 for age. Pain: Complains of pain in right inguinal area Pain at worst was 10 out of 10 on a pain scale. Pain began this morning Is intermittent. EENT: Poor dentition noted. Neuro: Level of Consciousness is awake, alert, obeys commands, Oriented to person, place, time. Cardiovascular: Patient's skin is warm and dry. Respiratory: Airway is patent Respiratory effort is even, unlabored, Respiratory pattern is regular, symmetrical. GI: No signs and/or symptoms were reported involving the gastrointestinal system. Historical: - Allergies: 18:12 No Known Allergies; ap3 - Home Meds: 18:12 None [Active]; ap3 - Immunization history:: Client reports receiving the 2nd dose of the Covid vaccine. - Infectious Disease History:: Denies. - Social history:: Smoking status: Patient denies any tobacco usage or history of. Screenin:13 [facility] ED Fall Risk Assessment (Adult) History of falling in the last 3 months, ap3 including since admission No falls in past 3 months (0 pts) Confusion or Disorientation No (0 pts) Intoxicated or Sedated No (0 pts) Impaired Gait No (0 pts) Mobility Assist Device Used No (0 pt) Altered Elimination No (0 pt) Score/Fall Risk Level 0 - 2 = Low Risk Oriented to surroundings, Maintained a safe environment, Educated pt \\T\\ family on fall prevention, incl call for assistance when getting out of bed, Assessed \\T\\ reinforced patient's understanding of fall precautions, Hourly rounding (assess needs \\T\\ fall precautionary measures) done, Used ambulatory aids as needed (educated on \\T\\ assisted with). Abuse screen: Denies threats or abuse. Nutritional screening: No deficits noted. Tuberculosis screening: No symptoms or risk factors identified. Assessment: 20:30 General: Appears uncomfortable, Behavior is cooperative. Pain: Complains of pain in ha1 pelvis and right inguinal area Pain currently is 8 out of 10 on a pain scale. Quality of pain is described as pressure, shooting, Pain began 2-3 days ago. Neuro: Level of Consciousness is awake, alert, obeys commands, Oriented to person, place, time, situation. Cardiovascular: Patient's skin is warm and dry. Respiratory: Airway is patent Respiratory effort is even, unlabored, Respiratory pattern is regular, symmetrical. GI: Abdomen is round swelling right inguinal area. patient states "I have a hernia there and it hurts.". : No signs and/or symptoms were reported regarding the genitourinary system. Derm: Skin is moist, Skin is normal. Musculoskeletal: Circulation, motion, and sensation intact. 21:30 Reassessment: Patient and/or family updated on plan of care and expected duration. Pain ha1 level reassessed. Patient is alert, oriented x 3, equal unlabored respirations, skin warm/dry/pink. 22:30 Reassessment: Patient and/or family updated on plan of care and expected duration. Pain ha1 level reassessed. Patient is alert, oriented x 3, equal unlabored respirations, skin warm/dry/pink. 23:30 Reassessment: Patient and/or family updated on plan of care and expected duration. Pain ha1 level reassessed. Patient is alert, oriented x 3, equal unlabored respirations, skin warm/dry/pink. 09/25 01:20 Reassessment: Patient and/or family updated on plan of care and expected duration. Pain ha1 level reassessed. Patient is alert, oriented x 3, equal unlabored respirations, skin warm/dry/pink. 02:25 Reassessment: Patient and/or family updated on plan of care and expected duration. Pain ha1 level reassessed. Patient is alert, oriented x 3, equal unlabored respirations, skin warm/dry/pink. Vital Signs: 09/24 18:09 Pulse 62; Resp 18; Temp 98.5; Pulse Ox 100% ; Weight 73.48 kg; Pain 10/10; ap3 18:14 BP 155 / 88; ap3 21:00 BP 135 / 68; Pulse 63; Resp 17 S; Pulse Ox 99% on R/A; ha1 22:00 BP 118 / 98; Pulse 64; Resp 17 S; Pulse Ox 97% on R/A; ha1 23:00 BP 121 / 69; Pulse 60; Resp 17 S; Pulse Ox 98% on R/A; ha1 23:40 BP 129 / 90; Pulse 69; Resp 17 S; Pulse Ox 98% on R/A; ha1 09/25 00:40 BP 118 / 70; Pulse 61; Resp 17 S; Pulse Ox 97% on R/A; ha1 01:30 BP 112 / 63; Pulse 58; Resp 17 S; Pulse Ox 98% on R/A; ha1 02:30 BP 114 / 61; Pulse 57; Resp 16 S; Pulse Ox 98% on R/A; ha1 09/24 18:09 Pain Scale: Adult ap3 ED Course: 09/24 17:55 Patient arrived in ED. im 18:12 Triage completed. ap3 18:14 Arm band placed on right wrist. ap3 18:15 Cecilia Morgan [facility] sb4 18:15 Kindra Metcalf MD is Attending Physician. sb4 19:20 Patient has correct armband on for positive identification. Placed in gown. Bed in low ha1 position. Call light in reach. Side rails up X 1. 20:22 Imani Overton, RN is Primary Nurse. kd3 20:29 Radiology exam delayed due to lab results not completed at this time. IV insertion jc4 attempt and/or patient not having appropriate IV at this time. 20:52 CBC with Diff Sent. ha1 20:52 CMP Sent. ha1 20:52 Lipase Sent. ha1 20:52 Urinalysis w/ reflexes Sent. ha1 22:04 CT Abd/Pelvis - IV Contrast Only In Process Unspecified. EDMS 23:35 Evans Rodriguez MD is Hospitalizing Provider. sb4 23:50 Provided Education on: HERNIA REDUCTION BY CARE PROVIDER KARINA . ha1 09/25 01:33 X-ray completed. Portable x-ray completed in exam room. Patient tolerated procedure mh1 well. 01:38 Chest Single View XRAY In Process Unspecified. EDMS 01:46 Troponin High Sensitivity Sent. ha1 06:44 Patient admitted, IV remains in place. intact. rg5 06:44 No provider procedures requiring assistance completed. rg5 Administered Medications: 09/24 20:48 Drug: NS 0.9% IV 1000 ml IV at 1 bolus Per protocol; to be given as a bolus over 60 ha1 minutes Route: IV; Rate: 1 bolus; Site: right antecubital; 09/25 00:20 Follow up: Response: No adverse reaction; IV Status: Completed infusion; IV Intake: ha1 1000ml 09/24 20:50 Drug: Ondansetron IVP 4 mg IVP once; over 2 minutes Route: IVP; Site: right antecubital;[facility] 21:05 Follow up: Response: No adverse reaction; Marked relief of symptoms ha1 20:53 Drug: morphine IVP or IV 4 mg IVP once over 4 mins Route: IVP; Infused Over: 4 mins; [facility] Site: right antecubital; 21:05 Follow up: Response: No adverse reaction; Marked relief of symptoms; Pain is decreased; ha1 RASS: Alert and Calm (0) 23:20 Not Given (Physician Discretion): midazolamor iv 2 mg IVP once sb4 23:30 Drug: fentaNYL (PF) IVP 100 mcg IVP once Route: IVP; Site: right antecubital; [facility] 09/25 00:00 Follow up: Response: No adverse reaction; Pain is decreased; RASS: Alert and Calm (0) ha 09/24 23:57 Drug: Rocephin IV 1 grams IV at calculated rate once; Given slow IV push per pharmacy [facility] instructions Route: IV; Rate: calculated rate; Site: right antecubital; 09/25 00:15 Follow up: Response: No adverse reaction; IV Status: Completed infusion; IV Intake: [id number] 09/24 23:57 Drug: Diazepam PO 5 mg PO once Route: PO; ha1 09/25 00:20 Follow up: Response: No adverse reaction; Marked relief of symptoms ha1 Medication: 00:46 VIS not applicable for this client. ha1 Intake: 00:15 IV: 50ml; Total: 50ml. ha1 00:20 IV: 1000ml; Total: 1050ml. ha1 Outcome: 09/24 23:36 Decision to Hospitalize by Provider. sb4 09/25 06:44 Admitted to ER Hold. [facility]. rg5 Condition: stable Instructed on the need for admit, 11:39 Patient left the ED. kc6 Signatures: Dispatcher [employer] EDMS Lashanda Zavala mhFrancine Rodríguez RN RN [email or web address] Imani Overton RN RN kd3 Tonya Acevedo RN RN ha1 Charlene Jamison RN RN kc6 Cecilia Morgan PA-Aminah PA-C [id number] Corrie Thurman Rommel RN RN rg5 Gallo Hudson jc4
--- NOTE | 2024-09-24 23:37 | EDPHYS ---
Physician Documentation [facility] Name: Jose Arroyo Age: 74 yrs Sex: Male : 1950 Arrival Date: 09/24/2024 Time: 17:52 Bed 15 Private MD: ED Physician Kindra Metcalf HPI: 09/24 20:52 This 74 yrs old Male presents to ER via Ambulatory with complaints of hernia sb4 pain. 20:52 Patient is complaining of pain in his right groin. States that he has had a hernia sb4 there for a few years now. States that it occasionally "pops in and out" but he has not been able to have a bowel movement since yesterday and believes that hernia might be why. Historical: - Allergies: 18:12 No Known Allergies; ap3 - Home Meds: 18:12 None [Active]; ap3 - Immunization history:: Client reports receiving the 2nd dose of the Covid vaccine. - Infectious Disease History:: Denies. - Social history:: Smoking status: Patient denies any tobacco usage or history of. ROS: 20:52 Constitutional: Negative for fever, chills, and weight loss, sb4 20:52 Abdomen/GI: Positive for constipation, 20:52 : Positive for Right groin pain, 20:52 All other systems are negative, Exam: 20:52 Constitutional: This is a well developed, well nourished patient who is awake, alert, sb4 and in no acute distress. Head/Face: Normocephalic, atraumatic. Eyes: Extra-ocular motions intact. Periorbital areas with no swelling, redness, or edema. ENT: Mucous membranes moist. Cardiovascular: Regular rate and rhythm with a normal S1 and S2. Respiratory: No increased work of breathing, no retractions or nasal flaring. Abdomen/GI: Soft, non-tender, no distension. Skin: Warm, dry with normal turgor. Normal color with no rashes, no lesions, and no evidence of cellulitis. 20:52 Abdomen/GI: Hernia: noted in the right inguinal area, tenderness, that is moderate, 20:52 Special observations: the patient eats chips or other snacks, Vital Signs: 18:09 Pulse 62; Resp 18; Temp 98.5; Pulse Ox 100% ; Weight 73.48 kg; Pain 10/10; ap3 18:14 BP 155 / 88; ap3 21:00 BP 135 / 68; Pulse 63; Resp 17 S; Pulse Ox 99% on R/A; ha1 22:00 BP 118 / 98; Pulse 64; Resp 17 S; Pulse Ox 97% on R/A; ha1 23:00 BP 121 / 69; Pulse 60; Resp 17 S; Pulse Ox 98% on R/A; ha1 23:40 BP 129 / 90; Pulse 69; Resp 17 S; Pulse Ox 98% on R/A; ha1 09/25 00:40 BP 118 / 70; Pulse 61; Resp 17 S; Pulse Ox 97% on R/A; ha1 01:30 BP 112 / 63; Pulse 58; Resp 17 S; Pulse Ox 98% on R/A; ha1 02:30 BP 114 / 61; Pulse 57; Resp 16 S; Pulse Ox 98% on R/A; ha1 09/24 18:09 Pain Scale: Adult ap3 Procedures: 09/24 23:37 Attempted reduction of inguinal hernia with manual pressure. Patient could not tolerate.sb4 09/25 00:39 secondary attempt of reduction of inguinal hernia with manual pressure in Trendelenburg sb4 after anxiolytic, successful . MDM: 09/24 18:15 Medical Screening Exam initiated sb4 21:56 Data reviewed: vital signs, nurses notes, lab test result(s), radiologic studies. sb4 09/25 00:03 Management of patient was discussed with the following: Outbound Telemarketer: Dr. Harris, would [facility] like me to administer an anxiolytic and retry hernia reduction. 01:01 Data reviewed: I have discussed the patient's presentation/case with the attending [facility] Emergency Department Physician;. Consideration of Admission/Observation Patient was admitted/placed on observation. Counseling: I had a detailed discussion with the patient and/or guardian regarding the historical points, exam findings, and any diagnostic results supporting the discharge/admit diagnosis, lab results, radiology results, the need for further work-up and treatment in the hospital. 09/24 18:40 Order name: CBC with Diff; Complete Time: 21:44 sb4 09/24 18:40 Order name: CMP; Complete Time: 21:24 sb4 09/24 18:40 Order name: Lipase; Complete Time: 21:24 sb4 09/24 18:40 Order name: Urinalysis w/ reflexes; Complete Time: 21:12 sb4 09/24 21:14 Order name: Urine Culture EDMS 09/24 21:43 Order name: CBC Smear Scan; Complete Time: 21:44 EDMS 09/25 00:35 Order name: Troponin High Sensitivity; Complete Time: 17:02 sb4 09/25 02:02 Order name: Protime (+INR); Complete Time: 17:02 EDMS 09/25 02:02 Order name: CBC with Automated Diff EDMS 09/25 02:02 Order name: CBC with Automated Diff EDMS 09/25 02:02 Order name: Comprehensive Metabolic Panel EDMS 09/25 02:02 Order name: Comprehensive Metabolic Panel EDMS 09/24 18:40 Order name: CT Abd/Pelvis - IV Contrast Only; Complete Time: 22:29 sb4 09/25 00:35 Order name: Chest Single View XRAY; Complete Time: 17:02 sb4 09/25 02:02 Order name: CONS Physician Consult EDMS 09/25 02:02 Order name: EKG Electrocardiogram EDMS 09/24 18:40 Order name: IV Saline Lock; Complete Time: 20:52 sb4 09/24 18:40 Order name: Labs collected and sent; Complete Time: 20:52 sb4 09/25 00:35 Order name: EKG - Nurse/Tech; Complete Time: 01:46 sb4 09/25 00:36 Order name: NPO; Complete Time: 00:39 sb4 Administered Medications: 09/24 20:48 Drug: NS 0.9% IV 1000 ml IV at 1 bolus Per protocol; to be given as a bolus over 60 ha1 minutes Route: IV; Rate: 1 bolus; Site: right antecubital; 09/25 00:20 Follow up: Response: No adverse reaction; IV Status: Completed infusion; IV Intake: ha1 1000ml 09/24 20:50 Drug: Ondansetron IVP 4 mg IVP once; over 2 minutes Route: IVP; Site: right antecubital;ha1 21:05 Follow up: Response: No adverse reaction; Marked relief of symptoms ha1 20:53 Drug: morphine IVP or IV 4 mg IVP once over 4 mins Route: IVP; Infused Over: 4 mins; ha1 Site: right antecubital; 21:05 Follow up: Response: No adverse reaction; Marked relief of symptoms; Pain is decreased; ha1 RASS: Alert and Calm (0) 23:20 Not Given (Physician Discretion): midazolamor iv 2 mg IVP once sb4 23:30 Drug: fentaNYL (PF) IVP 100 mcg IVP once Route: IVP; Site: right antecubital; ha1 09/25 00:00 Follow up: Response: No adverse reaction; Pain is decreased; RASS: Alert and Calm (0) ha1 09/24 23:57 Drug: Rocephin IV 1 grams IV at calculated rate once; Given slow IV push per pharmacy ha1 instructions Route: IV; Rate: calculated rate; Site: right antecubital; 09/25 00:15 Follow up: Response: No adverse reaction; IV Status: Completed infusion; IV Intake: [id number] 09/24 23:57 Drug: Diazepam PO 5 mg PO once Route: PO; ha1 09/25 00:20 Follow up: Response: No adverse reaction; Marked relief of symptoms ha1 Disposition Summary: 09/24/24 23:36 Hospitalization Ordered Notes: Hospitalization Status: Inpatient Admission sb4 Provider: Evans Rodriguez sb4 Condition: Fair sb4 Problem: new sb4 Symptoms: are unchanged sb4 Bed/Room Type: Standard sb4 Location: Telemetry/MedSurg (Inpatient)(09/25/24 10:56) ty Room Assignment: (09/25/24 11:36) ty Diagnosis - Incarcerated right inguinal hernia sb4 - UTI/ Urinary tract infection, site not specified sb4 Forms: - Medication Reconciliation Form sb4 - SBAR form sb4 - Leadership Thank You Letter sb4 Signatures: Dispatcher [employer] Francine Lozano RN RN ap3 Tonay Acevedo RN RN ha1 Cecilia Morgan, PACatherineC PACatherineC sb4 Aminta Ornelas Tylor ty Corrections: (The following items were deleted from the chart) 09/24 18:40 18:40 CBC+H.LAB.BRZ ordered. EDMS EDMS 18:41 18:40 COMPREHENSIVE METABOLIC PANEL+C.LAB.BRZ ordered. EDMS EDMS 18:41 18:40 LIPASE+C.LAB.BRZ ordered. EDMS EDMS 18:41 18:40 Urinalysis+U.LAB.BRZ ordered. EDMS EDMS 18:41 18:41 Abdomen Pelvis W Con+CT.RAD.BRZ ordered. EDMS EDMS 09/25 02:09 0307 23:36 sb4 vk 09/25 02:19 03 23:36 Telemetry/MedSurg (Inpatient) sb4 vk 09/25 02:19 02:09 224 vk vk 10:56 02:19 [facility] ER HOLD vk ty 10:56 02:19 ERHOLD- vk ty 11:36 10:56 225 ty ty
[2024-09-24] MEDS ORDERED: DIAZEPAM 5 MG TABLET ONE (23:51)
[2024-09-24] MEDS ORDERED: NA CHLORIDE 0.9% 50 ML ONE (23:51)
[2024-09-24] MEDS ORDERED: CEFTRIAXONE 1000 MG/VIAL ONE (23:51)
[2024-09-25] MEDS ORDERED: MORPHINE 2 MG/ML SYR IV PRN (01:55)
[2024-09-25] MEDS ORDERED: ACETAMINOPHEN 500 MG TAB PO PRN (01:55)
[2024-09-25] MEDS: NA CHLORIDE 0.9% 1,000 ML IV SCH (02:00)
--- NOTE | 2024-09-25 02:01 | P.HP ---
Patient History Date of Service: 09/25/24 History of Present Illness: 74-year-old male with minimal past medical history. He is Guamanian-speaking and a Guamanian speaking nurse at bedside. He states he was at home and his hernia became too painful. He rates the pain as a 10 out of 10. He denies any tobacco use, alcohol use, any other illicit drug use. He denies fevers, chills. He states he did not take any medicine at home. He lives alone. His brother visits him from time to time Allergies NKDA Allergy (Uncoded 12/22/13 01:18) Unknown No Known Allergies Allergy (Uncoded 09/03/16 18:31) Unknown Home Medications: Ciprofloxacin HCl [Cipro 500 MG Tablet] 500 mg PO BID #14 tab 09/04/16 Finasteride [Proscar*] 5 mg PO DAILY #30 tab 09/04/16 Tamsulosin [Flomax*] 0.4 mg PO DAILY #30 cap 09/04/16 - Past Medical/Surgical History Diabetic: No -: Bladder calculi -: Renal cyst -: BPH -: Tobacco abuse Psychosocial/ Personal History: Patient is single, has no children. 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 - Family History Mother -: Cancer (Unknown cancer) - Social History Alcohol use: No CD- Drugs: No Caffeine use: Yes Review of Systems General: Unremarkable Eyes: Unremarkable ENT: Unremarkable Respiratory: Unremarkable Cardiovascular: Unremarkable Gastrointestinal: Abdominal Pain Genitourinary: Unremarkable Musculoskeletal: Unremarkable Integumentary: Unremarkable Neurological: Unremarkable Physical Examination - Physical Exam General: Alert, In no apparent distress HEENT: Atraumatic, Normocephalic Neck: Supple Respiratory: Clear to auscultation bilaterally, Normal air movement Cardiovascular: No edema, Normal pulses Capillary refill: <2 Seconds Gastrointestinal: Normal bowel sounds, Soft and benign Musculoskeletal: No clubbing, No swelling Integumentary: No rashes Neurological: Normal speech Lymphatics: No axilla or inguinal lymphadenopathy - Studies Laboratory Data (last 24 hrs) 09/24/24 09/24/24 20:47 20:47 WBC 8.50 Hgb 15.5 Hct 45.5 Plt Count 168 Sodium 135 L Potassium 3.5 BUN 13 Creatinine 1.08 Glucose 114 H Total Bilirubin 1.4 H AST 25 ALT 26 Alkaline Phosphatase 126 H Lipase 38 Assessment and Plan - Plan Incarcerated inguinal hernia Abnormal urinalysis Abdominal CT reviewed, no SBO, bowel inflammation present Admit to GEN surgery, reduced in the ED Pain control N.p.o. at midnight Obtain EKG, PT/INR, CMP, CBC Urinalysis with WBCs, urine culture, start Rocephin DVT prophylaxis with SCDs - Advance Directives Does patient have a Living Will: No Does patient have a Durable POA for Healthcare: No
--- NOTE | 2024-09-25 03:41 | RAD REPORT ---
EXAM: XR Chest, 1 View CLINICAL HISTORY: The patient is 74 years old and is Male; cardiac clearance TECHNIQUE: Frontal view of the chest. COMPARISON: No relevant prior studies available. FINDINGS: Lungs: Right basilar atelectasis. Mildly prominent interstitial markings. Pleural space: Unremarkable. No pneumothorax. Heart: Unremarkable. Mediastinum: Unremarkable. Normal mediastinal contour. Bones/joints: No acute findings. IMPRESSION: No acute findings in the chest. Electronically signed by: Bryan Espinosa MD 09/25/2024 03:06 AM [facility] 8 Due to temporary technical issues with the PACS/Virax reporting system, reports are being chasity d by the in-house radiologist without review as a courtesy to ensure prompt reporting the interpreting radiologist is fully responsible for the content of the report. Transcribed Date/Time: 09/25/2024 3:41 AM
[2024-09-25] MEDS ORDERED: ONDANSETRON 4 MG/2 ML VIAL IV PRN (04:30)
[2024-09-25 05:42] LABS: PT Prothrombin Time 12.9 SECONDS (10.0-13.0); Protime INR 1.14
[2024-09-25 06:38] VITALS: BMI 31.2
[2024-09-25] MEDS ORDERED: NA CHLORIDE 0.9% 1,000 ML ONE (06:43)
[2024-09-25] MEDS ORDERED: CEFTRIAXONE 1000 MG/VIAL ONE (07:38)
[2024-09-25] MEDS: CEFTRIAXONE 1,000 MG in NA CHLORIDE 0.9% 50 ML IVPB SCH (08:09)
[2024-09-25] MEDS ORDERED: FINASTERIDE 5 MG TAB PO SCH (09:00)
[2024-09-25] MEDS ORDERED: TAMSULOSIN 0.4 MG SR CAP PO SCH (09:00)
[2024-09-25 09:18] VITALS: BP 128/60; TEMP 98
[2024-09-25] MEDS ORDERED: FLU (Fluarix Triv) TS24-25(6MOS UP)/PF 45 MCG/0.5 ML Syringe IM ONE (09:45)
[2024-09-25] MEDS ORDERED: PNEUMOCOCCAL VACCINE 0.5 ML IMVAC ONE (10:00)
[2024-09-25 11:52] VITALS: O2SAT 98
--- NOTE | 2024-09-28 11:12 | EKG ---
Test Date: 2024-09-25 Test Time: 01:38:25 Employee Relations Assistant: ALDEN MEASUREMENT RESULTS: Intervals: Rate: 55 NH: 130 QRSD: 86 QT: 492 QTc: 470 [place]: P: 57 NH: 130 QRS: 73 T: 108 INTERPRETIVE STATEMENTS: Sinus bradycardia Nonspecific T wave abnormality Prolonged QT Abnormal ECG No previous ECG available for comparison Electronically Signed On 09-28-24 11:03:19 CDT by Delmar Mcneil
--- NOTE | 2024-10-02 02:17 | P.DS ---
Discharge Date: 09/25/24 Disposition: AMA-LEFT AGAINST MEDICAL ADVIC Discharge Condition: GOOD Brief History of Present Illness: 74-year-old male with minimal past medical history. He is Kuwaiti-speaking and a Kuwaiti speaking nurse at bedside. He states he was at home and his hernia became too painful. He rates the pain as a 10 out of 10. He denies any tobacco use, alcohol use, any other illicit drug use. He denies fevers, chills. He states he did not take any medicine at home. He lives alone. His brother visits him from time to time Hospital Course: Patient is doing better. Patient decided to leave AGAINST MEDICAL ADVICE. We did talk to the patient but he was adamant about leaving at this time. Patient signed out AGAINST MEDICAL ADVICE. Vital Signs/Physical Exam: Temp Pulse Resp BP Pulse Ox 98.0 F 55 16 128/60 96 09/25/24 09:00 09/25/24 09:00 09/25/24 09:00 09/25/24 09:00 09/25/24 09:00 General: Alert, In no apparent distress, Oriented x3 Laboratory Data at Discharge: WBC 8.50 thou/uL (4.3-10.9) 09/24/24 20:47 Hgb 15.5 g/dL (13.6-17.9) 09/24/24 20:47 Hct 45.5 % (39.6-49.0) 09/24/24 20:47 Plt Count 168 thou/uL (152-406) 09/24/24 20:47 PT 12.9 SECONDS (10.0-13.0) H 09/25/24 05:24 INR 1.14 09/25/24 05:24 Sodium 135 mEq/L (136-145) L 09/24/24 20:47 Potassium 3.5 mEq/L (3.5-5.1) 09/24/24 20:47 BUN 13 mg/dL (7-18) 09/24/24 20:47 Creatinine 1.08 mg/dL (0.70-1.30) 09/24/24 20:47 Glucose 114 mg/dL (74-106) H 09/24/24 20:47 Total Bilirubin 1.4 mg/dL (0.2-1.0) H 09/24/24 20:47 AST 25 U/L (15-37) 09/24/24 20:47 ALT 26 U/L (16-61) 09/24/24 20:47 Alkaline Phosphatase 126 U/L (45-117) H 09/24/24 20:47 Lipase 38 U/L (13-75) 09/24/24 20:47 Home Medications: Ciprofloxacin HCl [Cipro 500 MG Tablet] 500 mg PO BID #14 tab 09/04/16 Finasteride [Proscar*] 5 mg PO DAILY #30 tab 09/04/16 Tamsulosin [Flomax*] 0.4 mg PO DAILY #30 cap 09/04/16 Physician Discharge Instructions: Patient left AGAINST MEDICAL ADVICE Followup: NONE,NONE [Primary Care Provider] - Time spent managing pt's care (in minutes): 35
== END 2024-09-25 11:33 | disposition left against medical advice (07) | DRG 394 ==
LOC: ER 17:52 → ERHOLD 09-25 01:55
PROVIDERS: ADMIT Family Medicine; ATTEND Hospitalist
DX: K40.30 Unilateral inguinal hernia, with obstruction, without gangrene, not specified as recurrent (principal); N39.0 Urinary tract infection, site not specified; K59.00 Constipation, unspecified; N40.0 Benign prostatic hyperplasia without lower urinary tract symptoms; Z60.2 Problems related to living alone; Z53.29 Procedure and treatment not carried out because of patient's decision for other reasons; Z79.899 Other long term (current) drug therapy
CPT/HCPCS: 36415; 71045; 74177; 80053; 81001; 83690; 84484; 85025; 85610; 87086; 87088; 93005; 96361; 96365; 96375; 99285; J0696; J2250; J2405; J3010; J7030; Q9967

== ENCOUNTER 2024-12-12 10:34 | Observation (INO) | payer OTHER ==
--- OUTSIDE RECORDS SUMMARY | 2024-12-12 10:39 | XMS REPORT | Continuity of Care Document ---
Author Name Unknown Address [address] [place] [address] Organization [facility] Address [address] [facility] [address] [place] [address] Care Team Providers Care Hamper Maker Machine Name Role Phone UNKNOWN, REFFERING Primary Care Physician Roni santos Ajibade_O_AH Attending Clinician Unavailable Ige-Odunuga_J_AH Attending Clinician Unavailable JESSICA COSTA M.D., [place] BOWMAN Attending Clinician Unavailable Ajibade_O_AH Admitting Clinician Unavailable Ige-Odunuga_J_AH Admitting Clinician Unavailable JESSICA COSTA M.D., JESSICA Dela Cruz Admitting Clinician Unavailable Payers Payer Name Policy Type Policy Number Effective Date Expirati on Date Source [facility] (MEDICARE REPLACEMENT/ADVANT AGE - HMO) [id number] 2019 00:00:00 Encounters Start Date/Time End Date/Time Encounter Type Admission Type Attending Clinicians Care Facility Care Department Encounter ID Source 2020-03-16 03:28:00 2020-03-16 03:28:00 Outpatient Ajibade_O_A H [facility] [id number] [facility] 2020-03-16 03:28:00 2020-03-16 03:28:00 Outpatient Ajibade_O_A H [facility]FP VFP [id number] [facility] 2019-09-08 07:23:00 2019-09-08 07:23:00 Outpatient Ige-Odunuga _J_AH VFP VFP [id number] [facility] 2019-09-08 07:23:00 2019-09-08 07:23:00 Outpatient Ige-Odunuga _J_AH VFP VFP [id number] [facility] 2017-06-19 10:47:00 2017-06-19 10:47:00 Outpatient [facility] [id number] [facility] 2017-05-30 08:33:00 2017-05-30 08:33:00 Outpatient JESSICA MEEKS [facility] MED [id number] [facility] 2017-05-06 06:29:00 2017-05-06 19:44:00 Inpatient Aminah COSTAJESSICA [facility] MED [id number] [facility] 2017-03-10 08:40:00 2017-03-10 08:40:00 Outpatient [facility] [id number] [facility] 2014-04-06 09:43:00 2014-04-06 09:43:00 Outpatient [facility] [id number] [facility] 2014-02-22 07:58:00 2014-02-22 07:58:00 Emergency E [facility] MED [id number] [facility] Results Test Description Test Time Test Comments Results Resul t Comments Source XR CYSTOGRAM (O.R.) 2017-06-19 12:03:48 XR CYSTOGRAM (O.R.)LOCATION: R16 HISTORY: N40.1: BENIGN PROSTATIC HYPERPLASIA WITH LOWER URINARY TRACTSYMPCOMPARISON: CT of the abdomen and pelvis 03/10/2017TECHNIQUE: Tray Line Worker abdominal radiograph was obtained. Multiplefluoroscopic images of the bladder were obtained before and after theadministration of contrast via Hart catheter (approximately 100 mL ofCystografin). A post void abdominal radiograph was also obtained.FINDINGS: Tray Line Worker radiograph shows a nonspecific, nonobstructive bowel gas [...] definite filling defectswithin the bladder. Basic Metabolic [id number] 06:00:00* Test Item Value Reference Range Interpretation [...] race is not provided, and the patient isAfrican-Georgian, multiply by 1.212. If sex is not [...] the National Kidney Foundation,http://nkdep .nih.gov CBC with Cferlnaywtbd4957-33-43 05:56:00* Test Item Value Reference Range Interpretation [...] code = ALYMPH) 0.9 K/cumm 0.5-4.6 N Desha Abs (test code = AMONO) 0.4 K/cumm 0.0-1.2 N Eos Abs (test code = AEOS) 0.40 K/cumm 0.00-0.74 N Baso Abs (test code = ABASO) 0.0 K/cumm 0.00-0.21 N RBC, Crossmatch [id number] 00:15:00* Test Item Value Reference Range Interpretation Comme nts Product 1 Code (test code = PRODCODE1) E4533 Unit 1 ID (test code = UNITID1) [id number] Unit 1 ABO (test code = UNITABO1) O Unit 1 Rh (test code = UNITRH1) POS Unit 1 Interp (test code = UNITINTERP1) Compatible Unit 1 Status (test code = UNITSTAT1) RE Product 2 Code (test code = PRODCODE2) E4532 Unit 2 ID (test code = UNITID2) [id number] Unit 2 ABO (test code = UNITABO2) O Unit 2 Rh (test code = UNITRH2) POS Unit 2 Interp (test code = UNITINTERP2) Compatible Unit 2 Status (test code = UNITSTAT2) RE Basic Metabolic [id number] 06:10:00* Test Item Value Reference Range Interpretation [...] race is not provided, and the patient isAfrican-Georgian, multiply by 1.212. If sex is not [...] the National Kidney Foundation,http://nkdep .nih.gov CBC with Mqejbkomrvpy3700-91-40 06:05:00* Test Item Value Reference Range Interpretation [...] code = ALYMPH) 1.1 K/cumm 0.5-4.6 N Desha Abs (test code = AMONO) 0.4 K/cumm 0.0-1.2 N Eos Abs (test code = AEOS) 0.26 K/cumm 0.00-0.74 N Baso Abs (test code = ABASO) 0.0 K/cumm 0.00-0.21 N Basic Metabolic [id number] 05:43:00* Test Item Value Reference Range Interpretation [...] race is not provided, and the patient isAfrican-Georgian, multiply by 1.212. If sex is not [...] the National Kidney Foundation,http://nkdep .nih.gov CBC with Ntrrfiizwrcw4262-75-10 05:19:00* Test Item Value Reference Range Interpretation [...] code = ALYMPH) 1.0 K/cumm 0.5-4.6 N Desha Abs (test code = AMONO) 0.4 K/cumm 0.0-1.2 N Eos Abs (test code = AEOS) 0.14 K/cumm 0.00-0.74 N Baso Abs (test code = ABASO) 0.0 K/cumm 0.00-0.21 N Jkaokyfmkh6809-60-58 10:55:00* Test Item Value Reference Range Interpretation Comme nts Phosphorus (test code = PO4) 2.5 mg/dL 2.70-4.50 L Magnesium, [id number] 10:53:00* Test Item Value Reference Range Interpretation Comme nts Magnesium (test code = MG) 1.8 mg/dL 1.7-2.5 N Basic Metabolic [id number] 03:59:00* Test Item Value Reference Range Interpretation [...] race is not provided, and the patient isAfrican-Georgian, multiply by 1.212. If sex is not [...] the National Kidney Foundation,http://nkdep .nih.gov CBC with Ehnibgrgnzlb9047-39-57 03:46:00* Test Item Value Reference Range Interpretation [...] code = ALYMPH) 0.8 K/cumm 0.5-4.6 N Desha Abs (test code = AMONO) 0.5 K/cumm 0.0-1.2 N Eos Abs (test code = AEOS) 0.01 K/cumm 0.00-0.74 N Baso Abs (test code = ABASO) 0.0 K/cumm 0.00-0.21 N CBC with Ulgymjirmncz8824-60-19 14:32:00* Test Item Value Reference Range Interpretation [...] code = ALYMPH) 0.3 K/cumm 0.5-4.6 L Desha Abs (test code = AMONO) 0.3 K/cumm 0.0-1.2 N RBC Morphology (test code = RBCMRPH) Normal Platelet Est (test code = PLTEST) Normal Platelet on Smear Basic Metabolic [id number] 14:05:00* Test Item Value Reference Range Interpretation [...] race is not provided, and the patient isAfrican-Georgian, multiply by 1.212. If sex is not [...] National Kidney Foundation,http://nkdep .nih.gov Antibody Screen - Ufikhefn4423-10-44 10:04:00* Test Item Value Reference Range Interpretation Comme nts Antibody Screen (test code = ABSCR) Negative Blood Gas+Lytes+Glu+Ca+Hgb+Hct+[id number] 09:54:00* Test Item Value Reference Range Interpretation [...] = RESP RATE) 0 Blood Type and [id number] 09:26:00* Test Item Value Reference Range Interpretation Comme nts ABO type (test code = ABO) O Rh Type (test code = RH) Positive Blood Gas+Lytes+Glu+Ca+Hgb+Hct+UT8629-00-73 08:42:00* Test Item Value Reference Range Interpretation [...] (test code = RESP RATE) 0 Culture, [id number] 11:26:00Specimen: UrineCollected: 05/30/2017 11:40 Status: Final Last [...] Enterococcus Isolate Group D Enterococcus PRITI (mcg/ml) Ampicillin (AM) <=2 Susceptible Ciprofloxacin (CP) 2 Intermediate Gentamicin Syn (HLG) <=500 Susceptible Levofloxacin (LEV) 2 Susceptible Linezolid (LNZ) 2 Susceptible Nitrofurantoin (FT) <=32 Susceptible Penicillin (P) 2 Susceptible Streptomycin Syn (HLS)<=1000 Susceptible Tetracycline (TE) >8 Resistant Vancomycin (VA) 2 SusceptibleBasi Metabolic Fufpe2710-54-25 13:26:00* Test Item Value Reference Range Interpretation [...] race is not provided, and the patient isAfrican-Georgian, multiply by 1.212. If sex is not [...] by the National Kidney Foundation,http://nkdep .nih.gov Urinalysis Kmdalbvo8755-58-72 13:20:00* Test Item Value Reference Range Interpretation Comme nts Color (test code = COLOR) Yellow Yellow ,Straw,Pl yellow N Clarity (test code = CLAR) Sl Cloudy Clear A Specific [place] (test code = SPGR) 1.012 1.001-1.035 N [...] code = BACT) Many /HPF Partial Thromboplastin [id number] 13:04:00* Test Item Value Reference Range Interpretation Comme nts aPTT (test code = PTT) 31.60 seconds 24.39-37.25 N Prothrombin [id number] 13:04:00* Test Item Value Reference Range Interpretation Comme nts PT (test code = PT) 11.40 seconds 9.78-13.35 N INR (test code = INR) 1.01 Ratio 0.6-1.2 N CBC with Svsmcvxdllgn2311-38-05 12:38:00* Test Item Value Reference Range Interpretation [...] code = ALYMPH) 1.3 K/cumm 0.5-4.6 N Desha Abs (test code = AMONO) 0.3 K/cumm 0.0-1.2 N Eos Abs (test code = AEOS) 0.13 K/cumm 0.00-0.74 N Baso Abs (test code = ABASO) 0.1 K/cumm 0.00-0.21 N XR CHEST 2V, RUBENS/[id number] 10:37:53EXAM: Chest x-ray, 2 viewsLOCATION: [id number]: CT of the abdomen and pelvis 03/10/2017INDICATION: N21.0: CALCULUS IN BLADDERDISCUSSION:PA and lateral chest radiographs were submitted for interpretation.No consolidation, pleural effusion, or pneumothorax is seen. There is eventration of the righthemidiaphragm.The cardiomediastinal silhouette is within normal limits. No acute osseous abnormalities are identified. A small lobular calcific density over the lower left paramedian neck isindetermin ate.IMPRESSION:No acute cardiopulmonary abnormalities.Culture, [id number] 10:21:00Specimen: UrineCollected: 05/06/2017 10:45 Status: Final Last Updated: 05/09/2017 10:21 Isolate (Final) (Final) 05/07/17 40,000 CFU/mL Morganella morganii +05/09/17 Multi Drug Resistant Organism - Contact IsolationRecommended Amikacin <=16 Susceptible Ampicillin >16 Resistant Ampicillin/Sulb >16/8 Resistant Cefazolin >16 Resistant Cefepime <=4 Susceptible Cefotaxime 32 IntermediateCeftazidime >16 Resistant Ceftriaxone 8 Resistant Cefuroxime >16 [...] Trimethoprim/Sulfa >2/38 ResistantNM MYOCARDL PERF IMAGE SPECT [id number] 16:01[facility] MYOCARDIAL PERFUSION STUDY AT REST ANDSTRESS YYGVZPPE66/17/2017 12:52 PMTECHNIQUE: The study was performed employing imaging both [...] stress.GATED INFORMATION: Post-rest LVEF 70%.IMPRESSION: Normal study.Culture, [id number] 10:42:00Specimen: UrineCollected: 04/14/2017 15:30 Status: Final Last [...] Tobramycin >8 Resistant Trimethoprim/Sulfa >2/38 ResistantBasic Metabolic Hkfof1960-20-74 17:13:00* Test Item Value Reference Range Interpretation [...] race is not provided, and the patient isAfrican-Georgian, multiply by 1.212. If sex is not [...] by the National Kidney Foundation,http://nkdep .nih.gov Urinalysis Rgwkbyxq2763-52-38 16:57:00* Test Item Value Reference Range Interpretation Comme nts Color (test code = COLOR) Yellow Yellow,Straw,Pl yellow N Clarity (test code = CLAR) Cloudy Clear A Specific [place] (test code = SPGR) 1.016 1.001-1.035 N [...] LENKA) Few Triple Phosphate /HPF CBC with Ucrsvjnlzlah2144-13-26 16:43:00* Test Item Value Reference Range Interpretation [...] code = ALYMPH) 1.6 K/cumm 0.5-4.6 N Desha Abs (test code = AMONO) 0.4 K/cumm 0.0-1.2 N Eos Abs (test code = AEOS) 0.22 K/cumm 0.00-0.74 N Baso Abs (test code = ABASO) 0.1 K/cumm 0.00-0.21 N 19880&PELV 1+ SECTION/[id number] 10:13:26CT ABDOMEN AND PELVIS WITH AND WITHOUT [...] Notes Date/Time Note Provider Source 2017-06-18 08:11:40 [facility] enter Progress Note PATIENT NAME: BETH FELICIANO PHYSICIAN: Cecil Mcclure MD Admitted: MR NUMBER: [id number] DISCHARGED: SUBJECTIVE: This patient is stable and [...] AW/SHE TD: 06/07/2017 00:23 CC:Cecil Mcclure MD [facility] Progress Note PATIENT NAME: BETH FELICIANO PHYSICIAN: Cecil Mcclure MD Admitted: MR NUMBER: [id number] DISCHARGED: SUBJECTIVE: This patient is stable and [...] Cecil Mcclure MD On 06/18/2017 08:11 AM [facility] 2017-06-18 08:10:20 [facility] enter Progress Note PATIENT NAME: BETH FELICIANO PHYSICIAN: Cecil Mcclure MD Admitted: MR NUMBER: [id number] DISCHARGED: DATE OF SERVICE: 06/07/2017 SUBJECTIVE: The [...] at bedtime p.r.n. insomnia. Cecil Mcclure MD AW/EMMANUEL/BONNIE [facility] Progress Note PATIENT NAME: BETH FELICIANO PHYSICIAN: Cecil Mcclure MD Admitted: MR NUMBER: [id number] DISCHARGED: DATE OF SERVICE: 06/07/2017 SUBJECTIVE: The [...] Cecil Mcclure MD On 06/18/2017 08:10 AM [facility] 2017-06-18 08:07:45 [facility] enter Progress Note PATIENT NAME: BETH FELICIANO PHYSICIAN: Cecil Mcclure MD Admitted: MR NUMBER: [id number] DISCHARGED: DATE OF SERVICE: 06/08/2017. SUBJECTIVE: This [...] Wright/ARUNA/BRETT TD: 06/08/2017 22:29 CC:Cecil Mcclure MD [facility] Progress Note PATIENT NAME: BETH FELICIANO PHYSICIAN: Cecil Mcclure MD Admitted: MR NUMBER: [id number] DISCHARGED: DATE OF SERVICE: 06/08/2017. SUBJECTIVE: This [...] Wright/ARUNA/BRETT TD: 06/08/2017 22:29 CC:Cecil Mcclure MD Electronically Authenticated by: Cecil Mcclure MD On 06/18/2017 08:07 AM [facility] 2017-06-17 14:21:28 [facility] enter Consultation PATIENT NAME: BETH FELICIANO PHYSICIAN: Canelo Mclaughlin MD Admitted: MR NUMBER: [id number] DISCHARGED: DATE OF CONSULTATION: 06/05/2017 CHIEF COMPLAINT: [...] Chest x-ray: No acute cardiopulmonary abnormalities, 05/30/2017. [facility] Consultation PATIENT NAME: BETH FELICIANO PHYSICIAN: Canelo Mclaughlin MD Admitted: MR NUMBER: [id number] DISCHARGED: DATE OF CONSULTATION: 06/05/2017 CHIEF COMPLAINT: [...] acute cardiopulmonary abnormalities, 05/30/2017. Patient Name: BETH FELICIANO DISPOSITION: After ICU [...] MORALES Chawla/ADRIAN TD: 06/05/2017 17:34 CC:Canelo Thurman MD(TreatFeed AutoClarity) Patient Name: BETH FELICIANO DISPOSITION: After ICU [...] Neo Thurman MD On 06/17/2017 02:21 PM [facility] 2017-06-11 16:24:02 [facility] enter Discharge Summary PATIENT NAME: BETH FELICIANO PHYSICIAN: Iris Nolen MD Admitted: MR NUMBER: [id number] DISCHARGED: 06/09/2017 05:35:00 ADMISSION DIAGNOSES: 1. Benign [...] his urethral catheter, which was a 3-way 22-Belarusian Hart catheter. On 06/09/2017, his SUZETTE tube [...] his sisters will help care for him. [facility] Discharge Summary PATIENT NAME: BETH FELICIANO PHYSICIAN: Iris Nolen MD Admitted: MR NUMBER: [id number] DISCHARGED: 06/09/2017 05:35:00 ADMISSION DIAGNOSES: 1. Benign [...] his urethral catheter, which was a 3-way 22-Belarusian Hart catheter. On 06/09/2017, his SUZETTE tube [...] Iris Nolen MD On 06/11/2017 04:23 PM [facility] Patient Name: BETH FELICIANO Nurses taught the patient how to change catheter bag as well as how to take care of drain sites and dressings. CONDITION AT DISCHARGE: Good. MD Jessica Kaminski MD ALS/ANUPAM TD: 06/11/2017 01:06 CC:Iris Nolen MD(Emdat User)(Emdat Autofax) Jessica Costa MD(Emdat Autofax) Electronically Authenticated by: Iris Nolen MD On 06/11/2017 04:23 PM [facility] Electronically Authenticated by: Jessica Costa MD On 06/16/2017 11:17 AM [facility] 2017-06-07 16:55:03 [facility] enter Operative Report/Procedure PATIENT NAME: BETH FELICIANO PHYSICIAN: Iris Nolen MD Admitted: MR NUMBER: [id number] DISCHARGED: DATE OF SURGERY: 06/05/2017 PREOPERATIVE DIAGNOSES: Bladder stones and benign prostatic hypertrophy. POSTOPERATIVE DIAGNOSES: Bladder stones, benign prostatic hypertrophy. SURGEON: Jessica Costa MD REMEDIATION CONSULTANT: Iris Nolen MD PROCEDURES PERFORMED: 1. Cystolitholapaxy. 2. Suprapubic prostatectomy. ANESTHESIA: General. COMPLICATIONS: None. ESTIMATED BLOOD LOSS: 850 mL SPECIMENS: 1. Prostate. 2. Bladder stones. TUBES: 1. Right side 19-Belarusian SUZETTE drain. 2. Left side 22-Belarusian Malecot. 3. A chest tube with cerclage [...] midline and this exposed the bladder. [facility] Operative Report/Procedure PATIENT NAME: BETH FELICIANO PHYSICIAN: Iris Nolen MD Admitted: MR NUMBER: [id number] DISCHARGED: DATE OF SURGERY: 06/05/2017 PREOPERATIVE DIAGNOSES: Bladder stones and benign prostatic hypertrophy. POSTOPERATIVE DIAGNOSES: Bladder stones, benign prostatic hypertrophy. SURGEON: Jessica Costa MD REMEDIATION CONSULTANT: Iris Nolen MD PROCEDURES PERFORMED: 1. Cystolitholapaxy. 2. Suprapubic prostatectomy. ANESTHESIA: General. COMPLICATIONS: None. ESTIMATED BLOOD LOSS: 850 mL SPECIMENS: 1. Prostate. 2. Bladder stones. TUBES: 1. Right side 19-Belarusian SUZETTE drain. 2. Left side 22-Belarusian Malecot. 3. A chest tube with cerclage [...] Jessica Costa MD On 06/16/2017 11:18 AM [facility] Patient Name: BETH FELICIANO was developed with [...] and remain in place for recovery. A 22-Belarusian 3-way Hart catheter was placed into the [...] again and noted to be watertight. A 10-Belarusian SUZETTE drain was then placed in the [...] and remain in place for recovery. A 22-Belarusian 3-way Hart catheter was placed into the [...] again and noted to be watertight. A 10-Belarusian SUZETTE drain was then placed in the [...] Iris Nolen MD On 06/07/2017 04:54 PM [facility] Patient Name: BETH FELICIANO CC:Iris Nolen MD(Emdat User)(Emdat Autofax) Jessica Costa MD(Emdat Autofax) Electronically Authenticated by: Iris Nolen MD On 06/07/2017 04:54 PM [facility] 2017-06-06 11:13:37 [facility] enter Consultation PATIENT NAME: BETH FELICIANO PHYSICIAN: Sebastian Palacio MD Admitted: MR NUMBER: [id number] DISCHARGED: REASON FOR CONSULTATION: Postoperative management. HISTORY [...] 144. ABG, pH 7.36/35/241. ASSESSMENT AND PLAN: [facility] Consultation PATIENT NAME: BETH FELICIANO PHYSICIAN: Sebastian Palacio MD Admitted: MR NUMBER: [id number] DISCHARGED: REASON FOR CONSULTATION: Postoperative management. HISTORY [...] tolerated. MD NERIS Lynn TD: 06/05/2017 17:16 Patient Name: BETH FELICIANO [...] Sebastian Palacio MD On 06/06/2017 11:13 AM [facility] 2017-06-06 11:13:11 [facility] enter Progress Note PATIENT NAME: BETH FELICIANO PHYSICIAN: Sebastian Palacio MD Admitted: MR NUMBER: [id number] DISCHARGED: SUBJECTIVE: The patient seen and examined [...] team. MD ALBIN Lynn/JEREMY TD: 06/06/2017 09:46 [facility] Progress Note PATIENT NAME: BETH FELICIANO PHYSICIAN: Sebastian Palacio MD Admitted: MR NUMBER: [id number] DISCHARGED: SUBJECTIVE: The patient seen and examined [...] Sebastian Palacio MD On 06/06/2017 11:13 AM [facility] 2017-05-20 12:09:57 [facility] enter Discharge Summary PATIENT NAME: BETH FELICIANO PHYSICIAN: Amaury Mejia MD Admitted: MR NUMBER: [id number] DISCHARGED: 05/06/2017 07:44:00 DATE OF ADMISSION: 05/06/2017. [...] Mejia MD On 05/20/2017 12:09 PM CDT [facility] Discharge Summary PATIENT NAME: BETH FELICIANO PHYSICIAN: Amaury Mejia MD Admitted: MR NUMBER: [id number] DISCHARGED: 05/06/2017 07:44:00 DATE OF ADMISSION: 05/06/2017. [...] with us for rescheduling of suprapubic prostatectomy. Amaruy Mejia MD CRK/RAD TD: 05/20/2017 08:42 Electronically Authenticated and Edited by: Amaury Mejia MD On 05/20/2017 12:09 PM CDT Electronically Authenticated by: Jessica Costa MD On 05/29/2017 08:35 AM [facility] 2017-05-06 16:44:09 [facility] enter Consultation PATIENT NAME: BETH FELICIANO PHYSICIAN: Jameson Ndiaye MD Admitted: MR NUMBER: [id number] DISCHARGED: TYPE OF CONSULTATION: Cardiology consultation. HISTORY [...] follow the patient's management along with you. [facility] Consultation PATIENT NAME: BETH FELICIANO PHYSICIAN: Jameson Ndiaye MD Admitted: MR NUMBER: [id number] DISCHARGED: TYPE OF CONSULTATION: Cardiology consultation. HISTORY [...] Ndiaye MD On 05/06/2017 04:44 PM CDT [facility]
[2024-12-12] MEDS ORDERED: ONDANSETRON 4 MG/2 ML VIAL ONE ×2 (12:45→14:32)
[2024-12-12] MEDS ORDERED: NA CHLORIDE 0.9% 1,000 ML ONE ×2 (12:45→18:49)
[2024-12-12] MEDS ORDERED: FAMOTIDINE 20 MG/2 ML VIAL IV ONE (12:45)
[2024-12-12] MEDS ORDERED: MORPHINE 2 MG/ML SYR ONE ×2 (12:45→13:16)
[2024-12-12 12:51] LABS: Absolute Basophils 0.1 K/uL (0-0.5); Absolute Lymphocytes (CBC) 0.6 K/uL (0.7-4.9); Absolute Monocytes 0.2 K/uL (0.1-1.3); Absolute Neutrophil 7.3 K/uL (1.8-8.0); Basophils % 0.9 % (0-1.3); Eosinophils % 0.2 % (0-4.4); Hematocrit 46.3 % (39.6-49.0); Lymphocytes % 7.7 % (15.3-44.8); MCH 30.4 pg (27.0-35.0); MCHC 34.6 g/dL (32.0-36.0); MCV 87.9 fL (80-100); MPV 9.8 fL (7.6-11.3); Monocytes % 2.6 % (3.3-12.3); Neutrophils % 88.6 % (41.7-73.7); Nucleated Red Blood Cells % 0.1 % (0-0); Platelets 176 thou/uL (152-406); RBC Red Blood Cell Count 5.27 M/uL (4.33-5.43); Red Cell Distribution Width 13.8 % (12.1-15.2)
[2024-12-12 13:46] LABS: Albumin 3.2 g/dL (3.4-5.0); Albumin/Globulin Ratio 0.8 (1.1-1.8); Anion Gap 7.3 mEq/L (5.0-15.0); Globulin 3.9 g/dL (2.3-3.5); Potassium 3.3 mEq/L (3.5-5.1); Protein, Total 7.1 g/dL (6.4-8.2)
[2024-12-12 13:47] LABS: Blood Morphology Comment NOT SEEN (NOT SEEN); Platelet Estimate ADEQ; White Blood Cell Scan OK (OK)
[2024-12-12 14:33] LABS: PT Prothrombin Time 11.9 SECONDS (10-13.0); Protime INR 1.05
[2024-12-12] MEDS ORDERED: MORPHINE 4 MG/ML SYR ONE (14:33)
[2024-12-12] MEDS ORDERED: NA CHLORIDE 0.9% 100 ML ONE (14:33)
[2024-12-12] MEDS ORDERED: PIPERACIL/TAZO 3.375 GM VIAL IV ONE (14:33)
--- NOTE | 2024-12-12 15:02 | ER ---
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 Denies n/v/d. Denies fever. Hx of hernia. Coronavirus screen: Vaccine status: Patient reports being unvaccinated. Ebola Screen: No symptoms or risks identified at this time. Initial Sepsis Screen: Does the patient meet any 2 criteria? No. Patient's initial sepsis screen is negative. Does the patient have a suspected source of infection? No. Patient's initial sepsis screen is negative. Risk Assessment: Do you want to hurt yourself or someone else? Patient reports no desire to harm self or others. Onset of symptoms was December 12, 2024 at 10:00. 11:29 Method Of Arrival: Ambulatory me1 11:29 Acuity: CHUYITA 3 me1 Historical: - Allergies: 11:31 No Known Allergies; me1 - Home Meds: 11:31 None [Active]; me1 - PMHx: 11:31 None; me1 - PSHx: 11:31 None; me1 - Immunization history:: Adult Immunizations unknown. - Infectious Disease History:: Denies. - Social history:: Smoking status: Patient reports the use of cigarette tobacco products, smokes one-half pack cigarettes per day. - Family history:: not pertinent. Screenin:10 [facility] ED Fall Risk Assessment (Adult) History of falling in the last 3 months, kj2 including since admission No falls in past 3 months (0 pts) Confusion or Disorientation No (0 pts) Intoxicated or Sedated No (0 pts) Impaired Gait No (0 pts) Mobility Assist Device Used No (0 pt) Altered Elimination No (0 pt) Score/Fall Risk Level 0 - 2 = Low Risk Maintained a safe environment, Hourly rounding (assess needs \T\ fall precautionary measures) done. Abuse screen: Denies threats or abuse. Denies injuries from another. Nutritional screening: No deficits noted. Tuberculosis screening: No symptoms or risk factors identified. Assessment: 12:10 General: Appears in no apparent distress. uncomfortable, Behavior is cooperative. Pain: neyda Complains of pain in right lower quadrant Pain currently is 10 out of 10 on a pain scale. Neuro: Level of Consciousness is awake, alert, obeys commands, Oriented to person, place, time, situation. Cardiovascular: Patient's skin is warm and dry. Respiratory: Airway is patent Respiratory effort is even, unlabored. GI: : No signs and/or symptoms were reported regarding the genitourinary system. 12:59 Reassessment: Patient appears in no apparent distress at this time. Patient and/or kj2 family updated on plan of care and expected duration. Pain level reassessed. Patient is alert, oriented x 3, equal unlabored respirations, skin warm/dry/pink. 14:00 Reassessment: Patient appears in no apparent distress at this time. Patient and/or kj2 family updated on plan of care and expected duration. Pain level reassessed. Patient is alert, oriented x 3, equal unlabored respirations, skin warm/dry/pink. 15:00 Reassessment: Patient appears in no apparent distress at this time. Patient and/or kj2 family updated on plan of care and expected duration. Pain level reassessed. Patient is alert, oriented x 3, equal unlabored respirations, skin warm/dry/pink. 16:00 Reassessment: Patient appears in no apparent distress at this time. Patient and/or kj2 family updated on plan of care and expected duration. Pain level reassessed. Patient is alert, oriented x 3, equal unlabored respirations, skin warm/dry/pink. 17:15 Reassessment: Patient appears in no apparent distress at this time. Patient and/or kj2 family updated on plan of care and expected duration. Pain level reassessed. Patient is alert, oriented x 3, equal unlabored respirations, skin warm/dry/pink. 19:31 Reassessment: Patient appears in no apparent distress at this time. Patient and/or kj2 family updated on plan of care and expected duration. Pain level reassessed. Patient is alert, oriented x 3, equal unlabored respirations, skin warm/dry/pink. 20:15 Reassessment: Patient appears in no apparent distress at this time. Patient and/or kj2 family updated on plan of care and expected duration. Pain level reassessed. Patient is alert, oriented x 3, equal unlabored respirations, skin warm/dry/pink. Vital Signs: 11:29 BP 153 / 83; Pulse 56; Resp 18; Temp 98.4; Pulse Ox 99% ; Weight 60 kg; Height 5 ft. 4 me1 in. ; Pain 10/10; 12:59 BP 137 / 67; Pulse 58; Resp 18; Temp 98; Pulse Ox 100% ; kj2 14:29 BP 135 / 71; Pulse 54; Resp 20; Pulse Ox 100% on R/A; kj2 15:00 BP 127 / 58; Pulse 56; Resp 20; Pulse Ox 100% on R/A; kj2 16:00 BP 122 / 74; Pulse 58; Resp 20; Pulse Ox 100% on R/A; kj2 17:00 BP 112 / 58; Pulse 56; Resp 18; Pulse Ox 100% on R/A; kj2 19:31 BP 104 / 76; Pulse 58; Resp 18; Pulse Ox 100% on R/A; kj2 11:29 Body Mass Index 22.04 (60.00 kg, 165 cm) me1 11:29 Pain Scale: Adult me1 ED Course: 10:38 Patient arrived in ED. im 10:38 James Lang MD is Attending Physician. [facility] 11:31 Triage completed. me1 11:31 Arm band placed on Patient placed in waiting room. me1 12:09 Ebony Hassan, RN is Primary Nurse. kj2 12:10 Patient has correct armband on for positive identification. Provided Education on: call kj2 light. 12:34 Radiology exam delayed due to lab results not completed at this time. (BUN/Creatinine) 9 IV insertion attempt and/or patient not having appropriate IV at this time. 12:40 Inserted saline lock: 20 gauge in right antecubital area, using aseptic technique. kj2 Blood collected. Flushed with 10 mL NS. 13:35 Radiology exam delayed due to lab results not completed at this time. (BUN/Creatinine). 9 14:36 CT Abd/Pelvis - IV Contrast Only In Process Unspecified. EDMS 15:00 Chest Single View XRAY In Process Unspecified. EDMS 15:00 Ramone Flynn MD is Hospitalizing Provider. juan ramon 20:12 No provider procedures requiring assistance completed. Patient admitted, IV remains in kj2 place. Administered Medications: 20:14 Discontinued: ns 0.9% with kcl20 meq/l 1000 ml IV at 125 ml/hr continuous kj2 12:57 Drug: Famotidine IVP 20 mg IVP once; dilute with 10 mL 0.9% NaCl; give over 2 minutes kj2 Route: IVP; Site: right antecubital; 12:57 Drug: morphine IVP or IV 2 mg IVP once over 4 mins Route: IVP; Infused Over: 4 mins; kj2 Site: right antecubital; 14:42 Follow up: Response: No adverse reaction kj2 12:59 Drug: Ondansetron IVP 4 mg IVP once; over 2 minutes Route: IVP; Site: right antecubital;kj2 12:59 Drug: NS 0.9% IV 1000 ml IV at 1 bolus Per protocol; to be given as a bolus over 60 kj2 minutes Route: IV; Rate: 1 bolus; Site: right antecubital; 13:27 Drug: morphine IVP or IV 2 mg IVP once over 4 mins Route: IVP; Infused Over: 4 mins; kj2 Site: right antecubital; 14:42 Follow up: Response: No adverse reaction kj2 14:54 Drug: Ondansetron IVP 4 mg IVP once; over 2 minutes Route: IVP; Site: right antecubital;kj2 18:50 Follow up: Response: No adverse reaction kj2 14:55 Drug: Piperacillin-Tazobactam IVPB 3.375 grams IVPB once over 60 mins; (mix in NS 100 kj2 mL) Route: IVPB; Infused Over: 60 mins; Site: right antecubital; 18:51 Follow up: IV Status: Completed infusion; IV Intake: 100ml kj2 14:55 Drug: morphine IVP or IV 4 mg IVP once over 4 mins Route: IVP; Infused Over: 4 mins; kj2 Site: right antecubital; 18:50 Follow up: Response: No adverse reaction kj2 16:12 Drug: NS 0.9% with KCl IV 20 mEq/L 1000 ml IV at 125 ml/hr continuous Route: IV; Rate: kj2 125 ml/hr; Site: right antecubital; 20:14 Follow up: IV Status: Order to discontinue infusion; IV Intake: 600ml kj2 Medication: 12:10 VIS not applicable for this client. kj2 Intake: 18:51 IV: 100ml; Total: 100ml. kj2 20:14 IV: 600ml; Total: 700ml. kj2 Outcome: 15:02 Decision to Hospitalize by Provider. juan ramon 20:12 Admitted to Tele accompanied by tech, via stretcher, room 407, kj2 20:12 Condition: stable 20:12 Instructed on the need for admit, Demonstrated understanding of 20:15 Patient left the ED. kj2 Signatures: Dispatcher [employer] James Lagos MD MD cha Mendoza, Itzel im Eddleman, Michelle, RN RN 1 Montse Marx Ebony Garrido, LAURA RN kj2
--- NOTE | 2024-12-12 15:02 | EDPHYS ---
Physician Documentation [facility] Name: Jose Arroyo Age: 74 yrs Sex: Male : 1950 Arrival Date: 12/12/2024 Time: 10:34 Bed 16 Private MD: ED Physician James Lang HPI: 12/12 14:51 This 74 yrs old Male presents to ER via Ambulatory with complaints of Hernia juan ramon Pain. 14:51 This 74 yrs old Male presents to ER via Ambulatory with complaints of Hernia juan ramon Pain. 14:51 The patient presents with abdominal pain right lower quadrant. Onset: The juan ramon symptoms/episode began/occurred at 10:00. right inguinal hernia, pain at 10 am. Onset: The symptoms/episode began/occurred this morning. The symptoms do not radiate. Associated signs and symptoms: none. Modifying factors: The symptoms are alleviated by nothing, remaining still, the symptoms are aggravated by jumping, movement, pressure, walking. Severity of pain: At its worst the pain was moderate this morning, in the emergency department the pain is unchanged. Severity of symptoms: At their worst the symptoms were moderate severe in the emergency department the symptoms are unchanged. Historical: - Allergies: 11:31 No Known Allergies; me1 - Home Meds: 11:31 None [Active]; me1 - PMHx: 11:31 None; me1 - PSHx: 11:31 None; me1 - Immunization history:: Adult Immunizations unknown. - Infectious Disease History:: Denies. - Social history:: Smoking status: Patient reports the use of cigarette tobacco products, smokes one-half pack cigarettes per day. - Family history:: not pertinent. ROS: 14:51 Constitutional: Negative for fever, chills, and weight loss, Eyes: Negative for injury, juan ramon pain, redness, and discharge, ENT: Negative for injury, pain, and discharge, Neck: Negative for injury, pain, and swelling, Cardiovascular: Negative for chest pain, palpitations, and edema, Respiratory: Negative for shortness of breath, cough, wheezing, and pleuritic chest pain, Back: Negative for injury and pain, : Negative for injury, bleeding, discharge, and swelling, MS/Extremity: Negative for injury and deformity, Skin: Negative for injury, rash, and discoloration, Neuro: Negative for headache, weakness, numbness, tingling, and seizure, Psych: Negative for depression, anxiety, suicide ideation, homicidal ideation, and hallucinations, Allergy/Immunology: Negative for hives, rash, and allergies, Endocrine: Negative for neck swelling, polydipsia, polyuria, polyphagia, and marked weight changes, Hematologic/Lymphatic: Negative for swollen nodes, abnormal bleeding, and unusual bruising, 14:51 Abdomen/GI: Positive for abdominal pain, right inguinal hernia, not reducable, Exam: 14:57 Constitutional: This is a well developed, well nourished patient who is awake, alert, juan ramon and in no acute distress. Head/Face: Normocephalic, atraumatic. Eyes: Pupils equal round and reactive to light, extra-ocular motions intact. Lids and lashes normal. Conjunctiva and sclera are non-icteric and not injected. Cornea within normal limits. Periorbital areas with no swelling, redness, or edema. ENT: Nares patent. No nasal discharge, no septal abnormalities noted. Tympanic membranes are normal and external auditory canals are clear. Oropharynx with no redness, swelling, or masses, exudates, or evidence of obstruction, uvula midline. Mucous membranes moist. Neck: Trachea midline, no thyromegaly or masses palpated, and no cervical lymphadenopathy. Supple, full range of motion without nuchal rigidity, or vertebral point tenderness. No Meningismus. Chest/axilla: Normal chest wall appearance and motion. Nontender with no deformity. No lesions are appreciated. Cardiovascular: Regular rate and rhythm with a normal S1 and S2. No gallops, murmurs, or rubs. Normal PMI, no JVD. No pulse deficits. Respiratory: Lungs have equal breath sounds bilaterally, clear to auscultation and percussion. No rales, rhonchi or wheezes noted. No increased work of breathing, no retractions or nasal flaring. Back: No spinal tenderness. No costovertebral tenderness. Full range of motion. Male : Normal genitalia with no discharge or lesions. Skin: Warm, dry with normal turgor. Normal color with no rashes, no lesions, and no evidence of cellulitis. MS/ Extremity: Pulses equal, no cyanosis. Neurovascular intact. Full, normal range of motion., bilateral aka Neuro: Awake and alert, GCS 15, oriented to person, place, time, and situation. Cranial nerves II-XII grossly intact. Motor strength 5/5 in all extremities. Sensory grossly intact. Cerebellar exam normal. Normal gait. Psych: Awake, alert, with orientation to person, place and time. Behavior, mood, and affect are within normal limits. 14:57 Abdomen/GI: Inspection: abdomen appears normal, Bowel sounds: normal, Palpation: moderate abdominal tenderness, in the right lower quadrant, Liver: no appreciated palpable abnormalities, Hernia: noted in the right inguinal area, incarceration, that is moderate, 18:46 ECG was reviewed by the Attending Physician. [facility] Vital Signs: 11:29 BP 153 / 83; Pulse 56; Resp 18; Temp 98.4; Pulse Ox 99% ; Weight 60 kg; Height 5 ft. 4 me1 in. ; Pain 10/10; 12:59 BP 137 / 67; Pulse 58; Resp 18; Temp 98; Pulse Ox 100% ; kj2 14:29 BP 135 / 71; Pulse 54; Resp 20; Pulse Ox 100% on R/A; kj2 15:00 BP 127 / 58; Pulse 56; Resp 20; Pulse Ox 100% on R/A; kj2 16:00 BP 122 / 74; Pulse 58; Resp 20; Pulse Ox 100% on R/A; kj2 17:00 BP 112 / 58; Pulse 56; Resp 18; Pulse Ox 100% on R/A; kj2 19:31 BP 104 / 76; Pulse 58; Resp 18; Pulse Ox 100% on R/A; kj2 11:29 Body Mass Index 22.04 (60.00 kg, 165 cm) me1 11:29 Pain Scale: Adult me1 Procedures: 15:20 Performed right ingunal hernia reduced , 3rrd attempt. juan ramon MDM: 10:39 Medical Screening Exam initiated juan ramon 11:25 Medical Screening Exam initiated juan ramon 15:19 Differential Diagnosis sepsis. Differential diagnosis: Mesenteric ischemia or juan ramon infarction, non-specific abd pain, Prostatitis, urinary tract infection. Data reviewed: vital signs, nurses notes, lab test result(s), EKG, radiologic studies, plain films. Consideration of Admission/Observation Patient was admitted/placed on observation. Escalation of care including admission/observation considered. I considered the following discharge prescriptions or medication management in the emergency department Medications were administered in the Emergency Department. See MAR. Independent interpretation of the following test(s) in the Emergency Department EKG: See my EKG interpretation above. Test considered but Not performed: Ultrasound no abd usg. Historians other than the Patient: pt well informed. Care significantly affected by the following chronic conditions: Hypertension. Counseling: I had a detailed discussion with the patient and/or guardian regarding the historical points, exam findings, and any diagnostic results supporting the discharge/admit diagnosis, radiology results, the need for further work-up and treatment in the hospital. 12/12 10:42 Order name: CBC with Diff; Complete Time: 14:57 [facility] 12/12 10:42 Order name: CMP; Complete Time: 14:57 juan ramon 12/12 10:42 Order name: Lipase; Complete Time: 14:57 juan ramon 12/12 13:47 Order name: CBC Smear Scan; Complete Time: 14:57 EDMS 12/12 14:01 Order name: PT-INR; Complete Time: 14:57 [facility] 12/12 16:56 Order name: Basic Metabolic Panel EDMS 12/12 16:56 Order name: Basic Metabolic Panel EDMS 12/12 16:56 Order name: Basic Metabolic Panel EDMS 12/12 16:56 Order name: Basic Metabolic Panel EDMS 12/12 16:56 Order name: Basic Metabolic Panel EDMS 12/12 16:56 Order name: CBC with Automated Diff EDMS 12/12 16:56 Order name: CBC with Automated Diff EDMS 12/12 16:56 Order name: CBC with Automated Diff EDMS 12/12 16:56 Order name: CBC with Automated Diff EDMS 12/12 16:56 Order name: CBC with Automated Diff EDMS 12/12 10:42 Order name: CT Abd/Pelvis - IV Contrast Only; Complete Time: 18:46 [facility] 12/12 14:01 Order name: Chest Single View XRAY; Complete Time: 18:46 [facility] 12/12 14:01 Order name: EKG; Complete Time: 14:02 [facility] 12/12 10:42 Order name: IV Saline Lock; Complete Time: 12:59 juan ramon 12/12 10:42 Order name: Labs collected and sent; Complete Time: 12:59 [facility] 12/12 12:59 Order name: Misc. Order: lab redraw labels reprinted; Complete Time: 13:27 sp 12/12 14:01 Order name: EKG - Nurse/Tech; Complete Time: 18:50 juan ramon EC:46 Rate is 55 beats/min. Rhythm is regular. QRS [place] is Normal. HI interval is normal. QRS juan ramon interval is normal. QT interval is normal. No Q waves. T waves are Normal. No ST changes noted. Clinical impression: Sinus bradycardia and No evidence of ischemia. Interpreted by me. Reviewed by me. Administered Medications: 20:14 Discontinued: ns 0.9% with kcl20 meq/l 1000 ml IV at 125 ml/hr continuous kj2 12:57 Drug: Famotidine IVP 20 mg IVP once; dilute with 10 mL 0.9% NaCl; give over 2 minutes kj2 Route: IVP; Site: right antecubital; 12:57 Drug: morphine IVP or IV 2 mg IVP once over 4 mins Route: IVP; Infused Over: 4 mins; kj2 Site: right antecubital; 14:42 Follow up: Response: No adverse reaction kj2 12:59 Drug: Ondansetron IVP 4 mg IVP once; over 2 minutes Route: IVP; Site: right antecubital;kj2 12:59 Drug: NS 0.9% IV 1000 ml IV at 1 bolus Per protocol; to be given as a bolus over 60 kj2 minutes Route: IV; Rate: 1 bolus; Site: right antecubital; 13:27 Drug: morphine IVP or IV 2 mg IVP once over 4 mins Route: IVP; Infused Over: 4 mins; kj2 Site: right antecubital; 14:42 Follow up: Response: No adverse reaction kj2 14:54 Drug: Ondansetron IVP 4 mg IVP once; over 2 minutes Route: IVP; Site: right antecubital;kj2 18:50 Follow up: Response: No adverse reaction kj2 14:55 Drug: Piperacillin-Tazobactam IVPB 3.375 grams IVPB once over 60 mins; (mix in NS 100 kj2 mL) Route: IVPB; Infused Over: 60 mins; Site: right antecubital; 18:51 Follow up: IV Status: Completed infusion; IV Intake: 100ml kj2 14:55 Drug: morphine IVP or IV 4 mg IVP once over 4 mins Route: IVP; Infused Over: 4 mins; kj2 Site: right antecubital; 18:50 Follow up: Response: No adverse reaction kj2 16:12 Drug: NS 0.9% with KCl IV 20 mEq/L 1000 ml IV at 125 ml/hr continuous Route: IV; Rate: kj2 125 ml/hr; Site: right antecubital; 20:14 Follow up: IV Status: Order to discontinue infusion; IV Intake: 600ml kj2 Disposition Summary: 12/12/24 15:02 Hospitalization Ordered Notes: Hospitalization Status: Inpatient Admission juan ramon Provider: Ramone Flynn cha Location: Telemetry/MedSurg (Inpatient) juan ramon Condition: Fair juan ramon Problem: new juan ramon Symptoms: have improved juan ramon Bed/Room Type: Standard juan ramon Room Assignment: 407(12/12/24 19:21) hw Diagnosis - Unilateral inguinal hernia, with obstruction, without gangrene, recurrent - juan ramon reduced(12/12/24 15:19) Forms: - Medication Reconciliation Form juan ramon - SBAR form juan ramon - Leadership Thank You Letter juan ramon Signatures: Dispatcher [employer] James Lagos MD MD cha Pinkerton, Shawna sp Eddleman, Michelle, RN RN me1 Ebony Hassan RN RN kj2 Georgette Butcher Corrections: (The following items were deleted from the chart) 15:19 15:02 Unilateral inguinal hernia, with obstruction, without gangrene, recurrent juan ramon juan ramon 19:21 15:02 juan ramon hw
--- NOTE | 2024-12-12 15:49 | RAD REPORT ---
EXAMINATION: CT Abdomen Pelvis W Contrast CLINICAL INDICATION: Male, 74 years old. ABD PAIN TECHNIQUE: CT abdomen and pelvis was performed, after the administration of IV contrast, as per [facility] protocol. Axial, sagittal and coronal reconstructions were obtained. One or more of the following dose reduction techniques were used: Automated exposure control, adjustment of the mA and k V according to patient size, and iterative reconstruction. Unless otherwise specified, incidental findings do not require dedicated imaging follow-up. COMPARISON: 09/24/2024 FINDINGS: LOWER CHEST: The visualized lung bases are clear. LIVER: Normal in size and contour. No focal lesion. BILIARY SYSTEM: No suspicious abnormalities. SPLEEN: Normal size. No focal lesion. PANCREAS: No mass, ductal dilation, or erick-pancreatic fluid. ADRENALS: Normal; no mass. KIDNEYS: Stable bilateral renal cortical fluid density cysts. Normal size and contour otherwise. No h ydronephrosis. URINARY BLADDER: Sequelae of TURP again noted with widening at the bladder neck. GASTROINTESTINAL TRACT: No evidence of free air, significant intra-abdominal free fluid, bowel obstru ction or abscess. APPENDIX: Normal appendix. LYMPH NODES: No lymphadenopathy. MUSCULOSKELETAL: No acute or suspicious osseous abnormality. ADDITIONAL FINDINGS: Right inguinal hernia containing a loop of the sigmoid colon, as well as moderat e amount of fluid, stable. There is suggestion of segmental wall thickening of the sigmoid loop within the hernia sac, which may be progressive since the prior exam. No evidence of free air.. IMPRESSION: Redemonstration of right inguinal hernia containing a loop of sigmoid colon. Mild wall thickening see n along this loop, progressive in appearance, which could relate to sequelae of early incarceration or focal inflammation, although with no evidence of obstruction. Moderate amount of fluid is also con tained within the hernia sac, stable.
--- NOTE | 2024-12-12 15:53 | RAD REPORT ---
EXAMINATION: ONE VIEW CHEST XR CLINICAL INDICATION: Male, 74 years old.,Cough;Abdominal distention TECHNIQUE: Frontal chest projection is submitted. Examination is limited by patient positioning and t echnique. COMPARISON: 09/25/2024 FINDINGS: The lungs are suboptimally inflated and clear, apart from stable mild central interstitial prominence . No pneumothorax or sizable effusion. The heart is normal in size. Mediastinal contours are unremarkable. IMPRESSION: Stable mild central interstitial prominence with could relate to mild underaeration versus central co ngestion.
[2024-12-12] MEDS ORDERED: NS KCL 20MEQ 1,000 ML IV ONE (16:05)
--- NOTE | 2024-12-12 16:51 | P.HP ---
Certification for Inpatient Patient admitted to: Observation With expected LOS: <2 Midnights Patient will require the following post-hospital care: None Practitioner: I am a practitioner with admitting privileges, knowledge of patient current condition, hospital course, and medical plan of care. Services: Services provided to patient in accordance with Admission requirements found in Title 42 Section 412.3 of the Code of Federal Regulations Patient History Date of Service: 12/12/24 Reason for admission: Incarcerated hernia History of Present Illness: 74 old male with history of right inguinal hernia presents the emergency department for hernia pain. He reports that his hernia came out this morning around 10 AM. He was evaluated in the ER CBC was unremarkable potassium was 3.3 CT of the abdomen pelvis was performed prior to reduction which showed redemonstration of right inguinal hernia containing loop of sigmoid colon. Mild wall thickening seen along this loop progressed in appearance with could relate to sequela of early incarceration or focal inflammation although no evidence of obstruction. Moderate amount of fluid is also contained within the hernia sac which is stable. After Ult[facility] times ER physician was able to reduce the hernia, given the amount of time that was out patient will be observed in the hospital for general marie gaby consultation. Allergies NKDA Allergy (Uncoded 12/22/13 01:18) Unknown No Known Allergies Allergy (Uncoded 09/03/16 18:31) Unknown Home Medications: Ciprofloxacin HCl [Cipro 500 MG Tablet] 500 mg PO BID #14 tab 09/04/16 Finasteride [Proscar*] 5 mg PO DAILY #30 tab 09/04/16 Tamsulosin [Flomax*] 0.4 mg PO DAILY #30 cap 09/04/16 - Past Medical/Surgical History Diabetic: No -: Bladder calculi -: Renal cyst -: BPH -: Tobacco abuse Psychosocial/ Personal History: Patient is single, has no children. 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 - Family History Mother -: Cancer - Social History Alcohol use: No CD- Drugs: No Caffeine use: Yes Place of Residence: Home Review of Systems 10-point ROS is otherwise unremarkable Gastrointestinal: Abdominal Pain Physical Examination - Physical Exam General: Alert, In no apparent distress, Oriented x3 HEENT: Atraumatic, PERRLA, EOMI Neck: Supple, 2+ carotid pulse no bruit, No LAD Respiratory: Clear to auscultation bilaterally, Normal air movement Cardiovascular: Regular rate/rhythm, Normal S1 S2 Gastrointestinal: Normal bowel sounds, No tenderness Musculoskeletal: No tenderness Integumentary: No rashes Neurological: Normal gait, Normal speech, Normal strength at 5/5 x4 extr, Normal affect - Studies Laboratory Data (last 24 hrs) 12/12/24 12/12/24 12/12/24 14:10 13:25 12:40 WBC 8.20 Hgb 16.0 Hct 46.3 Plt Count 176 PT 11.9 INR 1.05 Sodium 139 Potassium 3.3 L BUN 9 Creatinine 0.75 Glucose 109 H Total Bilirubin 1.0 AST 17 ALT 19 Alkaline Phosphatase 109 Lipase 38 Assessment and Plan - Plan Assessment: Incarcerated right inguinal hernia S/P closed reduction in ED Hypokalemia Plan: Incarcerated right inguinal hernia S/P closed reduction in ED Clear liquid diet Serial abdominal exams General Surgery consultation Repeat blood work in the morning Hypokalemia Protocol in place DVT PPX: SCD Code status:full Discharge Plan: Home Plan to discharge in: 24 Hours - Advance Directives Does patient have a Living Will: No Does patient have a Durable POA for Healthcare: No - Code Status/Comfort Care Code Status Assessed: Yes (Full code) Critical Care: No Time Spent Managing Pts Care (In Minutes): 62
[2024-12-12] MEDS ORDERED: ONDANSETRON 4 MG/2 ML VIAL IV PRN (16:52)
[2024-12-12] MEDS ORDERED: ACETAMINOPHEN 325 MG TABLET PO PRN (16:52)
[2024-12-12] MEDS: NA CHLORIDE 0.9% 1,000 ML IV SCH (17:00)
[2024-12-12 20:30] VITALS: BMI 28.3
[2024-12-13 07:31] LABS: Absolute Basophils 0.1 K/uL (0-0.5); Absolute Eosinophils 0.1 K/uL (0-0.5); Absolute Monocytes 0.3 K/uL (0.1-1.3); Absolute Neutrophil 3.1 K/uL (1.8-8.0); Basophils % 1.3 % (0-1.3); Eosinophils % 2.3 % (0-4.4); Hematocrit 41.3 % (39.6-49.0); MCH 29.7 pg (27.0-35.0); MCHC 33.8 g/dL (32.0-36.0); MCV 87.8 fL (80-100); MPV 9.8 fL (7.6-11.3); Monocytes % 6.4 % (3.3-12.3); Nucleated Red Blood Cells % 0.1 % (0-0); Platelets 147 thou/uL (152-406); Red Cell Distribution Width 13.7 % (12.1-15.2)
[2024-12-13 07:52] LABS: Anion Gap 5.9 mEq/L (5.0-15.0); Potassium 3.9 mEq/L (3.5-5.1)
[2024-12-13 12:30] VITALS: O2SAT 99
--- NOTE | 2024-12-13 15:47 | P.DS ---
Admission Date: 12/12/24 Discharge Date: 12/13/24 Disposition: ROUTINE DISCHARGE Discharge Condition: GOOD Reason for Admission: Incarcerated hernia Brief History of Present Illness: 74 old male with history of right inguinal hernia presents the emergency department for hernia pain. He reports that his hernia came out this morning around 10 AM. He was evaluated in the ER CBC was unremarkable potassium was 3.3 CT of the abdomen pelvis was performed prior to reduction which showed redemonstration of right inguinal hernia containing loop of sigmoid colon. Mild wall thickening seen along this loop progressed in appearance with could relate to sequela of early incarceration or focal inflammation although no evidence of obstruction. Moderate amount of fluid is also contained within the hernia sac which is stable. After Ultiva times ER physician was able to reduce the hernia, given the amount of time that was out patient will be observed in the hospital for general surgery consultation. Hospital Course: Assessment: Incarcerated right inguinal hernia S/P closed reduction in ED Hypokalemia Patient was admitted to the hospital for his inguinal hernia. It had become incarcerated and was out for around 8 to 10 hours, it was successfully reduced in the ED and patient was admitted under observation to ensure no further issues with bowel ischemia or recurrent issues with his hernia. His labs are unremarkable this morning, he is feeling much better. He is stable for discharge and outpatient follow-up with general surgery for definitive manage of his hernia. Do not lift more than 20 pounds Vital Signs/Physical Exam: Temp Pulse Resp BP Pulse Ox 98.1 F 50 15 105/68 98 12/13/24 12:00 12/13/24 12:00 12/13/24 12:00 12/13/24 12:00 12/13/24 12:00 General: Alert, In no apparent distress, Oriented x3 HEENT: Atraumatic, PERRLA Neck: Supple, JVD not distended Respiratory: Clear to auscultation bilaterally, Normal air movement Cardiovascular: Regular rate/rhythm, Normal S1 S2 Gastrointestinal: Normal bowel sounds Integumentary: No rashes Neurological: Normal speech, Normal affect Laboratory Data at Discharge: WBC 4.50 thou/uL (4.3-10.9) 12/13/24 06:44 Hgb 14.0 g/dL (13.6-17.9) D 12/13/24 06:44 Hct 41.3 % (39.6-49.0) 12/13/24 06:44 Plt Count 147 thou/uL (152-406) L 12/13/24 06:44 PT 11.9 SECONDS (10-13.0) 12/12/24 14:10 INR 1.05 12/12/24 14:10 Sodium 137 mEq/L (136-145) 12/13/24 06:44 Potassium 3.9 mEq/L (3.5-5.1) D 12/13/24 06:44 BUN 10 mg/dL (7-18) 12/13/24 06:44 Creatinine 0.91 mg/dL (0.70-1.30) 12/13/24 06:44 Glucose 121 mg/dL (74-106) H 12/13/24 06:44 Total Bilirubin 1.0 mg/dL (0.2-1.0) 12/12/24 13:25 AST 17 U/L (15-37) 12/12/24 13:25 ALT 19 U/L (16-61) 12/12/24 13:25 Alkaline Phosphatase 109 U/L (45-117) 12/12/24 13:25 Lipase 38 U/L (13-75) 12/12/24 13:25 Home Medications: NK [No Home Meds] 12/12/24 Physician Discharge Instructions: Patient was admitted to the hospital for his inguinal hernia. It had become incarcerated and was out for around 8 to 10 hours, it was successfully reduced in the ED and patient was admitted under observation to ensure no further issues with bowel ischemia or recurrent issues with his hernia. His labs are unremarkable this morning, he is feeling much better. He is stable for discharge and outpatient follow-up with general surgery for definitive manage of his hernia. Do not lift more than 20 pounds Diet: Regular Activity: no lifting more than 20 pounds Followup: Lorenzo Zapata MD [ACTIVE - CAN ADMIT] - 1 Week NONE,NONE [Primary Care Provider] - 1-2 Weeks Time spent managing pt's care (in minutes): 37
[2024-12-13 16:05] VITALS: BP 147/72; TEMP 97.8
--- NOTE | 2024-12-13 19:46 | CON ---
Date of Consultation: 12/13/2024 History Of Present Illness: Mr. Ireland is a 74-year-old patient with history of right inguinal her gay. It has been there for few years already. Last year, it has bothered him more. He recognized, he has been working and doing some heavy lifting and that is making this a little bit more difficult to reduce. Yesterday, he came to the ER, it was reduced. Kept for observation. He is asymptomatic, tolerating diet and passing gas and bowel movement and I was consulted for evaluation of that area. Allergies: NONE. Past Medical History: Include renal cyst, BPH. Family History: Mother with a type of cancer he does not know. Social History: He does not smoke. He does not drink alcohol. Medications: Include Flomax, Proscar. Review of Systems: No shortness of breath. No chest pain. No fever. No abdominal pain. No dysuria, hematuria, hemato chezia, melena. Ten points are otherwise unremarkable. Physical Examination: Vital Signs: Stable. General: The patient is awake and alert. HEENT: Pupils are equal and reactive. Anicteric. Neck: Supple. Chest: Clear. Heart: S1, S2. Abdomen: Soft and depressible. No guarding or rebound. No peritoneal signs. Hernia, no tenderness . Right inguinal hernia, no guarding, no rebound. Reducible at this moment. Extremities: Good capillary refill. Diagnostic Data: CAT scan reviewed with the patient. Note, there is a colon involved on the incarce ration. Plan: He want to do this as an outpatient electively. Since he is asymptomatic at this moment, I ga ve him my card to see in my office as soon as possible. He understand that not only after the surger y, but from now, he has to be in light duty, which is no more than 20 pounds. If this comes back onc e again, he was advised to come to the ER immediately. He understands the importance of having that fixed, not to damage his intestines. He understood. PATRICIA/MODL Voice ID: [id number] Report ID: [id number]
--- NOTE | 2024-12-14 12:21 | EKG ---
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
== END 2024-12-13 16:24 | disposition home or self-care (01) ==
LOC: ER 10:34 → ERHOLD 16:51 → 4TH 19:59
PROVIDERS: ADMIT Hospitalist; ATTEND Hospitalist
DX: K40.30 Unilateral inguinal hernia, with obstruction, without gangrene, not specified as recurrent (principal); E87.6 Hypokalemia
CPT/HCPCS: 96365; 96361; 85025 ×2; 80048; 36415; 85610; 82947; 83690; 80053; 74177; 71045; 96375; 99285; 96366; Q9967; J2543; J2270 ×2; J2405 ×2; J7030 ×3; J3480; 93005; G0378

== ENCOUNTER 2025-04-13 10:56 | Observation (INO) | payer OTHER ==
--- OUTSIDE RECORDS SUMMARY | 2025-04-13 11:01 | XMS REPORT | Continuity of Care Document ---
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 Role Phone UNKNOWN, REFFERING Primary Care Physician Roni santos Ajibade_O_AH Attending Clinician Unavailable Ige-Odunuga_J_AH Attending Clinician Unavailable JESSICA COSTA M.D., [place] BOWMAN Attending Clinician Unavailable Ajibade_O_AH Admitting Clinician Unavailable Ige-Odunjacy_J_AH Admitting Clinician Unavailable JESSICA COSTA M.D., JESSICA Dela Cruz Admitting Clinician Unavailable Payers Payer Name Policy Type Policy Number Effective Date Expirati on Date Source [facility] (MEDICARE REPLACEMENT/ADVANT AGE - HMO) [id number] 2019 00:00:00 Encounters Start Date/Time End Date/Time Encounter Type Admission Type Attending Clinicians Care Facility Care Department Encounter ID Source 2017-06-19 10:47:00 2017-06-19 10:47:00 Outpatient [facility] [id number] [facility] 2017-05-30 08:33:00 2017-05-30 08:33:00 Outpatient JESSICA MEEKS [facility] [id number] [facility] 2017-05-06 06:29:00 2017-05-06 19:44:00 Inpatient JESSICA MEEKS [facility] [id number] [facility] 2017-03-10 08:40:00 2017-03-10 08:40:00 Outpatient [facility] [id number] [facility] 2014-04-06 09:43:00 2014-04-06 09:43:00 Outpatient [facility] [id number] [facility] 2014-02-22 07:58:00 2014-02-22 07:58:00 Emergency E [facility] [id number] [facility] Results Test Description Test Time Test Comments Results Resul t Comments Source XR CYSTOGRAM (O.R.) 2017-06-19 12:03:48 XR CYSTOGRAM (O.R.)LOCATION: R16 HISTORY: N40.1: BENIGN PROSTATIC HYPERPLASIA WITH LOWER URINARY TRACTSYMPCOMPARISON: CT of the abdomen and pelvis 03/10/2017TECHNIQUE: Waste Cotton Cleaner abdominal radiograph was obtained. Multiplefluoroscopic images of the bladder were obtained before and after theadministration of contrast via Hart catheter (approximately 100 mL ofCystografin). A post void abdominal radiograph was also obtained.FINDINGS: Waste Cotton Cleaner radiograph shows a nonspecific, nonobstructive bowel gas [...] definite filling defectswithin the bladder. Basic Metabolic [id number] 06:00:00* Test Item Value Reference Range Interpretation [...] race is not provided, and the patient isAfrican-Kenyan, multiply by 1.212. If sex is not [...] the National Kidney Foundation,http://nkdep .nih.gov CBC with Kkwvnibvzgjy7311-09-22 05:56:00* Test Item Value Reference Range Interpretation [...] code = ALYMPH) 0.9 K/cumm 0.5-4.6 N [place] Abs (test code = AMONO) 0.4 K/cumm 0.0-1.2 N Eos Abs (test code = AEOS) 0.40 K/cumm 0.00-0.74 N Baso Abs (test code = ABASO) 0.0 K/cumm 0.00-0.21 N RBC, Crossmatch 00:15:00* Test Item Value Reference Range Interpretation Comme nts Product 1 Code (test code = PRODCODE1) E4533 Unit 1 ID (test code = UNITID1) [id number] Unit 1 ABO (test code = UNITABO1) O Unit 1 Rh (test code = UNITRH1) POS Unit 1 Interp (test code = UNITINTERP1) Compatible Unit 1 Status (test code = UNITSTAT1) RE Product 2 Code (test code = PRODCODE2) E4532 Unit 2 ID (test code = UNITID2) [id number] Unit 2 ABO (test code = UNITABO2) O Unit 2 Rh (test code = UNITRH2) POS Unit 2 Interp (test code = UNITINTERP2) Compatible Unit 2 Status (test code = UNITSTAT2) RE Basic Metabolic [id number] 06:10:00* Test Item Value Reference Range Interpretation [...] race is not provided, and the patient isAfrican-Kenyan, multiply by 1.212. If sex is not [...] the National Kidney Foundation,http://nkdep .nih.gov CBC with [id number] 06:05:00* Test Item Value Reference Range Interpretation [...] code = ALYMPH) 1.1 K/cumm 0.5-4.6 N [place] Abs (test code = AMONO) 0.4 K/cumm 0.0-1.2 N Eos Abs (test code = AEOS) 0.26 K/cumm 0.00-0.74 N Baso Abs (test code = ABASO) 0.0 K/cumm 0.00-0.21 N Basic Metabolic Ikrpt9395-08-85 05:43:00* Test Item Value Reference Range Interpretation [...] race is not provided, and the patient isAfrican-Kenyan, multiply by 1.212. If sex is not [...] the National Kidney Foundation,http://nkdep .nih.gov CBC with [id number] 05:19:00* Test Item Value Reference Range Interpretation [...] code = ALYMPH) 1.0 K/cumm 0.5-4.6 N [place] Abs (test code = AMONO) 0.4 K/cumm 0.0-1.2 N Eos Abs (test code = AEOS) 0.14 K/cumm 0.00-0.74 N Baso Abs (test code = ABASO) 0.0 K/cumm 0.00-0.21 N Iopxdemeif9686-14-18 10:55:00* Test Item Value Reference Range Interpretation Comme nts Phosphorus (test code = PO4) 2.5 mg/dL 2.70-4.50 L Magnesium, [id number] 10:53:00* Test Item Value Reference Range Interpretation Comme nts Magnesium (test code = MG) 1.8 mg/dL 1.7-2.5 N Basic Metabolic [id number] 03:59:00* Test Item Value Reference Range Interpretation [...] race is not provided, and the patient isAfrican-Kenyan, multiply by 1.212. If sex is not [...] the National Kidney Foundation,http://nkdep .nih.gov CBC with [id number] 03:46:00* Test Item Value Reference Range Interpretation [...] code = ALYMPH) 0.8 K/cumm 0.5-4.6 N [place] Abs (test code = AMONO) 0.5 K/cumm 0.0-1.2 N Eos Abs (test code = AEOS) 0.01 K/cumm 0.00-0.74 N Baso Abs (test code = ABASO) 0.0 K/cumm 0.00-0.21 N CBC with Nblpyoajagel9862-22-97 14:32:00* Test Item Value Reference Range Interpretation [...] code = ALYMPH) 0.3 K/cumm 0.5-4.6 L [place] Abs (test code = AMONO) 0.3 K/cumm 0.0-1.2 N RBC Morphology (test code = RBCMRPH) Normal Platelet Est (test code = PLTEST) Normal Platelet on Smear Basic Metabolic [id number] 14:05:00* Test Item Value Reference Range Interpretation [...] race is not provided, and the patient isAfrican-Kenyan, multiply by 1.212. If sex is not [...] National Kidney Foundation,http://nkdep .nih.gov Antibody Screen - Wrvlcuil5904-09-05 10:04:00* Test Item Value Reference Range Interpretation Comme nts Antibody Screen (test code = ABSCR) Negative Blood Gas+Lytes+Glu+Ca+Hgb+Hct+[id number] 09:54:00* Test Item Value Reference Range Interpretation [...] = RESP RATE) 0 Blood Type and [id number] 09:26:00* Test Item Value Reference Range Interpretation Comme nts ABO type (test code = ABO) O Rh Type (test code = RH) Positive Blood Gas+Lytes+Glu+Ca+Hgb+Hct+[id number] 08:42:00* Test Item Value Reference Range Interpretation [...] (test code = RESP RATE) 0 Culture, [id number] 11:26:00Specimen: UrineCollected: 05/30/2017 11:40 Status: Final Last [...] >8 Resistant Vancomycin (VA) 2 SusceptibleBasi Metabolic [id number] 13:26:00* Test Item Value Reference Range Interpretation [...] race is not provided, and the patient isAfrican-Kenyan, multiply by 1.212. If sex is not [...] by the National Kidney Foundation,http://nkdep .nih.gov Urinalysis [id number] 13:20:00* Test Item Value Reference Range Interpretation Comme nts Color (test code = COLOR) Yellow Yellow ,Straw,Pl yellow N Clarity (test code = CLAR) Sl Cloudy Clear A Specific [place] (test code = SPGR) 1.012 1.001-1.035 N [...] code = BACT) Many /HPF Partial Thromboplastin [id number] 13:04:00* Test Item Value Reference Range Interpretation Comme nts aPTT (test code = PTT) 31.60 seconds 24.39-37.25 N Prothrombin [id number] 13:04:00* Test Item Value Reference Range Interpretation Comme nts PT (test code = PT) 11.40 seconds 9.78-13.35 N INR (test code = INR) 1.01 Ratio 0.6-1.2 N CBC with Mwnqjaudcpxx6699-30-76 12:38:00* Test Item Value Reference Range Interpretation [...] code = ALYMPH) 1.3 K/cumm 0.5-4.6 N [place] Abs (test code = AMONO) 0.3 K/cumm 0.0-1.2 N Eos Abs (test code = AEOS) 0.13 K/cumm 0.00-0.74 N Baso Abs (test code = ABASO) 0.1 K/cumm 0.00-0.21 N XR CHEST 2V, PA/[id number] 10:37:53EXAM: Chest x-ray, 2 viewsLOCATION: [id number]: CT of the abdomen and pelvis 03/10/2017INDICATION: N21.0: CALCULUS IN BLADDERDISCUSSION:PA and lateral chest radiographs were submitted for interpretation.No consolidation, pleural effusion, or pneumothorax is seen. There is eventration of the righthemidiaphragm.The cardiomediastinal silhouette is within normal limits. No acute osseous abnormalities are identified. A small lobular calcific density over the lower left paramedian neck isindetermin ate.IMPRESSION:No acute cardiopulmonary abnormalities.Culture, [id number] 10:21:00Specimen: UrineCollected: 05/06/2017 10:45 Status: Final Last [...] >8 Resistant Imipenem 4 Resistant Levofloxacin >4 Resis tant Meropenem <=1 Susceptible Nitrofurantoin 64 Resistant Piperacillin/Tazo 64 Intermediate Tobramycin >8 Resistant Trimethoprim/Sulfa >2/38 ResistantNM MYOCARDL PERF IMAGE SPECT [id number] 16:01:05[facility] MEDIC[facility] GATED SPECT MYOCARDIAL PERFUSION STUDY AT REST ANDSTRESS ZSHRARVQ68/17/2017 12:52 P MTECHNIQUE: The study was performed [...] Morganella morganii Amikacin <=16 Susceptible Ampicillin >16 Re sistant Ampicillin/Sulb >16/8 Resistant Cefazolin >16 Resistant Cefepime [...] race is not provided, and the patient isAfrican-Kenyan, multiply by 1.212. If sex is not [...] by the National Kidney Foundation,http://nkdep .nih.gov Urinalysis Srlpsdem2233-88-12 16:57:00* Test Item Value Reference Range Interpretation Comme nts Color (test code = COLOR) Yellow Yellow,Straw,Pl yellow N Clarity (test code = CLAR) Cloudy Clear A Specific [place] (test code = SPGR) 1.016 1.001-1.035 N [...] LENKA) Few Triple Phosphate /HPF CBC with Mbnffdqhtktd0417-45-97 16:43:00* Test Item Value Reference Range Interpretation [...] code = ALYMPH) 1.6 K/cumm 0.5-4.6 N [place] Abs (test code = AMONO) 0.4 K/cumm 0.0-1.2 N Eos Abs (test code = AEOS) 0.22 K/cumm 0.00-0.74 N Baso Abs (test code = ABASO) 0.1 K/cumm 0.00-0.21 N 98233&PELV 1+ SECTION/[id number] 10:13:26CT ABDOMEN AND PELVIS WITH AND WITHOUT [...] Notes Date/Time Note Provider Source 2017-06-18 08:11:40 [facility] enter Progress Note PATIENT NAME: BETH FELICIANO PHYSICIAN: Cecil Mcclure MD Admitted: MR NUMBER: [id number] DISCHARGED: SUBJECTIVE: This patient is stable and [...] AW/SHE TD: 06/07/2017 00:23 CC:Cecil Mcclure MD [facility] Progress Note PATIENT NAME: BETH FELICIANO PHYSICIAN: Cecil Mcclure MD Admitted: MR NUMBER: [id number] DISCHARGED: SUBJECTIVE: This patient is stable and [...] MD On 06/18/2017 08:[address] [facility] 2017-06-18 08:10:20 [facility] enter Progress Note PATIENT NAME: BETH FELICIANO PHYSICIAN: Cecil Mcclure MD Admitted: MR NUMBER: [id number] DISCHARGED: DATE OF SERVICE: 06/07/2017 SUBJECTIVE: The [...] at bedtime p.r.n. insomnia. Cecil Mcclure MD /EMMANUEL/BONNIE [facility] Progress Note PATIENT NAME: BETH FELICIANO PHYSICIAN: Cecil Mcclure MD Admitted: MR NUMBER: [id number] DISCHARGED: DATE OF SERVICE: 06/07/2017 SUBJECTIVE: The [...] MD On 06/18/2017 08:[address] [facility] 2017-06-18 08:07:45 [facility] enter Progress Note PATIENT NAME: BETH FELICIANO PHYSICIAN: Cecil Mcclure MD Admitted: MR NUMBER: [id number] DISCHARGED: DATE OF SERVICE: 06/08/2017. SUBJECTIVE: This [...] Wright/ARUNA/BRETT TD: 06/08/2017 22:29 CC:Cecil Mcclure MD [facility] Progress Note PATIENT NAME: BETH FELICIANO PHYSICIAN: Cecil Mcclure MD Admitted: MR NUMBER: [id number] DISCHARGED: DATE OF SERVICE: 06/08/2017. SUBJECTIVE: This [...] MD On 06/18/2017 08:[address] [facility] 2017-06-17 14:21:28 [facility] enter Consultation PATIENT NAME: BETH FELICIANO PHYSICIAN: Canelo Mclaughlin MD Admitted: MR NUMBER: [id number] DISCHARGED: DATE OF CONSULTATION: 06/05/2017 CHIEF COMPLAINT: [...] Chest x-ray: No acute cardiopulmonary abnormalities, 05/30/2017. [facility] Consultation PATIENT NAME: BETH FELICIANO PHYSICIAN: Canelo Mclaughlin MD Admitted: MR NUMBER: [id number] DISCHARGED: DATE OF CONSULTATION: 06/05/2017 CHIEF COMPLAINT: [...] TD: 06/05/2017 17:34 CC:Canelo Thurman MD(Emdat [employer]) Patient Name: BETH FELICIANO DISPOSITION: After ICU [...] MD On 06/17/2017 02:[address] [facility] 2017-06-11 16:24:02 [facility] enter Discharge Summary PATIENT NAME: BETH FELICIANO PHYSICIAN: Iris Nolen MD Admitted: MR NUMBER: [id number] DISCHARGED: 06/09/2017 05:35:00 ADMISSION DIAGNOSES: 1. Benign [...] his urethral catheter, which was a 3-way [place] Hart catheter. On 06/09/2017, his SUZETTE tube [...] his sisters will help care for him. [facility] Discharge Summary PATIENT NAME: BETH FELICIANO PHYSICIAN: Iris Nolen MD Admitted: MR NUMBER: [id number] DISCHARGED: 06/09/2017 05:35:00 ADMISSION DIAGNOSES: 1. Benign [...] his urethral catheter, which was a 3-way [place] Hart catheter. On 06/09/2017, his SUZETTE tube [...] Iris Nolen MD On 06/11/2017 04:23 PM MOTORIZED SQUAD [employer]GE[employer] Patient Name: BETH FELICIANO Nurses taught the patient how to change catheter bag as well as how to take care of drain sites and dressings. CONDITION AT DISCHARGE: Good. MD Jessica Kaminski MD ALS/ANUPAM TD: 06/11/2017 01:06 CC:Iris Nolen MD(Emdat User)(Emdat [employer]) Jessica Costa MD(E[employer]at [employer]) Electronically Authenticated by: Iris Nolen MD On 06/11/2017 04:23 PM [employer]ORIZED SQU[employer] Electronically Authenticated by: Jessica Costa MD On 06/16/2017 11:17 AM MOTORIZED SQUAD SERGE[employer] [facility] 2017-06-07 16:55:03 [facility] enter Operative Report/Procedure PATIENT NAME: BETH FELICIANO PHYSICIAN: Iris Nolen MD Admitted: MR NUMBER: [id number] DISCHARGED: DATE OF SURGERY: 06/05/2017 PREOPERATIVE DIAGNOSES: Bladder stones and benign prostatic hypertrophy. POSTOPERATIVE DIAGNOSES: Bladder stones, benign prostatic hypertrophy. SURGEON: Jessica Costa MD COAL CONVEYOR OPERATOR: Iris Nolen MD PROCEDURES PERFORMED: 1. Cystolitholapaxy. 2. Suprapubic prostatectomy. ANESTHESIA: General. COMPLICATIONS: None. ESTIMATED BLOOD LOSS: 850 mL SPECIMENS: 1. Prostate. 2. Bladder stones. TUBES: 1. Right side 19[place] SUZETTE drain. 2. Left side 22[place]. 3. A chest tube with cerclage [...] exposed the bladder. The space of Retzius [facility] Operative Report/Procedure PATIENT NAME: BEHT FELICIANO PHYSICIAN: Iris Nolen MD Admitted: MR NUMBER: [id number] DISCHARGED: DATE OF SURGERY: 06/05/2017 PREOPERATIVE DIAGNOSES: Bladder stones and benign prostatic hypertrophy. POSTOPERATIVE DIAGNOSES: Bladder stones, benign prostatic hypertrophy. SURGEON: Jessica Costa MD COAL CONVEYOR OPERATOR: Iris Nolen MD PROCEDURES PERFORMED: 1. Cystolitholapaxy. 2. Suprapubic prostatectomy. ANESTHESIA: General. COMPLICATIONS: None. ESTIMATED BLOOD LOSS: 850 mL SPECIMENS: 1. Prostate. 2. Bladder stones. TUBES: 1. Right side 19[place] SUZETTE drain. 2. Left side 22[place]. 3. A chest tube with cerclage [...] Jessica Costa MD On 06/16/2017 11:18 AM MOTORIZED S[employer]AD [employer]GE[employer] Patient Name: BETH FELICIANO was developed with [...] and remain in place for recovery. A 22[place] 3-way Hart catheter was placed into the [...] again and noted to be watertight. A 10[place] SUZETTE drain was then placed in the [...] and remain in place for recovery. A 22[place] 3-way Hart catheter was placed into the [...] again and noted to be watertight. A 10[place] SUZETTE drain was then placed in the [...] Iris Nolen MD On 06/07/2017 04:54 PM MOTORIZED SQU[employer]GE[employer] Patient Name: BETH FELICIANO CC:Iris Nolen MD(Emdat User)(Emdat [employer]) Jessica Costa MD(Emdat [employer]) Electronically Authenticated by: Iris Nolen MD On 06/07/2017 04:54 PM MOTORIZED SQUAD SERGEANT [facility] 2017-06-06 11:13:37 [facility] enter Consultation PATIENT NAME: BETH FELICIANO PHYSICIAN: Sebastian Palacio MD Admitted: MR NUMBER: [id number] DISCHARGED: REASON FOR CONSULTATION: Postoperative management. HISTORY [...] 144. ABG, pH 7.36/35/241. ASSESSMENT AND PLAN: [facility] Consultation PATIENT NAME: BETH FELICIANO PHYSICIAN: Sebastian Palacio MD Admitted: MR NUMBER: [id number] DISCHARGED: REASON FOR CONSULTATION: Postoperative management. HISTORY [...] and advance diet as tolerated. MD ALBIN Lynn/EMMANUEL TD: 06/05/2017 17:16 Patient Name: BETH FELICIANO [...] and advance diet as tolerated. MD ALBIN yLnn/EMMANUEL TD: 06/05/2017 17:16 Electronically Authenticated by: Sebastian Palacio MD On 06/06/2017 11:[address] [facility] 2017-06-06 11:13:11 [facility] enter Progress Note PATIENT NAME: BETH FELICIANO PHYSICIAN: Sebastian Palacio MD Admitted: MR NUMBER: [id number] DISCHARGED: SUBJECTIVE: The patient seen and examined [...] team. MD ALBIN Lynn/JEREMY TD: 06/06/2017 09:46 [facility] Progress Note PATIENT NAME: BETH FELICIANO PHYSICIAN: Sebastian Palacio MD Admitted: MR NUMBER: [id number] DISCHARGED: SUBJECTIVE: The patient seen and examined [...] MD On 06/06/2017 11:[address] [facility] 2017-05-20 12:09:57 [facility] enter Discharge Summary PATIENT NAME: BETH FELICIANO PHYSICIAN: Amaury Mejia MD Admitted: MR NUMBER: [id number] DISCHARGED: 05/06/2017 07:44:00 DATE OF ADMISSION: 05/06/2017. [...] Mejia MD On 05/20/2017 12:09 PM CDT [facility] Discharge Summary PATIENT NAME: BETH FELICIANO PHYSICIAN: Amaury Mejia MD Admitted: MR NUMBER: [id number] DISCHARGED: 05/06/2017 07:44:00 DATE OF ADMISSION: 05/06/2017. [...] Jessica Costa MD On 05/29/2017 08:35 AM MOTORIZED SQUAD SERGEANT [facility] 2017-05-06 16:44:09 [facility] enter Consultation PATIENT NAME: BETH FELICIANO PHYSICIAN: Jameson Ndiaye MD Admitted: MR NUMBER: [id number] DISCHARGED: TYPE OF CONSULTATION: Cardiology consultation. HISTORY [...] follow the patient's management along with you. [facility] Consultation PATIENT NAME: BETH FELICIANO PHYSICIAN: Jameson Ndiaye MD Admitted: MR NUMBER: [id number] DISCHARGED: TYPE OF CONSULTATION: Cardiology consultation. HISTORY [...] Ndiaye MD On 05/06/2017 04:44 PM CDT [facility]
[2025-04-13] MEDS ORDERED: ONDANSETRON 4 MG/2 ML VIAL ONE (11:50)
[2025-04-13] MEDS ORDERED: MORPHINE 4 MG/ML SYR ONE ×2 (11:51→12:12)
[2025-04-13] MEDS ORDERED: FAMOTIDINE 20 MG/2 ML VIAL IV ONE (11:51)
[2025-04-13 11:53] LABS: Absolute Lymphocytes (CBC) 0.8 K/uL (0.7-4.9); Hematocrit 42.4 % (39.6-49.0); Hemoglobin 14.5 g/dL (13.6-17.9); MCH 30.4 pg (27.0-35.0); MCHC 34.3 g/dL (32.0-36.0); MCV 88.8 fL (80-100); MPV 9.4 fL (7.6-11.3); Nucleated RBC Absolute Count 0.0 (0-0); Nucleated Red Blood Cells % 0.1 % (0-0); RBC Red Blood Cell Count 4.77 M/uL (4.33-5.43); White Blood Count 5.50 thou/uL (4.3-10.9)
[2025-04-13 12:00] LABS: PT Prothrombin Time 13.0 SECONDS (10-13.0); Protime INR 1.16
[2025-04-13 12:14] LABS: ALT/SGPT 25.0 U/L (16-61); AST/SGOT 21.0 U/L (15-37); Albumin 3.3 g/dL (3.4-5.0); Albumin/Globulin Ratio 0.8 (1.1-1.8); Alkaline Phosphatase 128.0 U/L (45-117); Anion Gap 8.3 mEq/L (5.0-15.0); BUN Blood Urea Nitrogen 20.0 mg/dL (7-18); Bilirubin Indirect, Calculated 1.3 mg/dL (0.2-0.8); Globulin 4.0 g/dL (2.3-3.5); Glucose Level 91.0 mg/dL (74-106); Lipase 37.0 U/L (13-75); Magnesium 2.2 mg/dL (1.6-2.4); NT PRO-BNP 442.0 pg/mL (<450); Potassium 3.3 mEq/L (3.5-5.1); Troponin High Sensitivity 9.3 pg/mL (<58.9)
[2025-04-13] MEDS ORDERED: NA CHLORIDE 0.9% 100 ML ONE (12:43)
[2025-04-13] MEDS ORDERED: PIPERACIL/TAZO 3.375 GM VIAL IV ONE (12:43)
--- NOTE | 2025-04-13 12:48 | EDPHYS ---
Physician Documentation [facility] Name: Jose Arroyo Age: 75 yrs Sex: Male : 1950 Arrival Date: 04/13/2025 Time: 10:56 Bed 23 Private MD: ED Physician James Lang HPI: 04/13 12:33 This 75 yrs old Male presents to ER via Ambulatory with complaints of juan ramon Abdominal Pain. 12:33 The patient presents with abdominal pain right lower quadrant. Onset: The juan ramon symptoms/episode began/occurred this morning. The symptoms do not radiate. Associated signs and symptoms: Pertinent positives: nausea and vomiting. The symptoms are described as crampy. Modifying factors: The symptoms are alleviated by nothing, the symptoms are aggravated by movement, pressure. Severity of pain: At its worst the pain was moderate severe in the emergency department the pain is unchanged. The patient has experienced similar episodes in the past, several times. Historical: - Allergies: 11:15 No Known Allergies; dd2 - PMHx: 11:15 HERNIA; dd2 - PSHx: 11:15 None; dd2 - Social history:: Smoking status: Patient reports the use of cigarette tobacco products, smokes one pack cigarettes per day. - Family history:: not pertinent. ROS: 12:33 Constitutional: Negative for fever, chills, and weight loss, Eyes: Negative for injury, juan ramon pain, redness, and discharge, ENT: Negative for injury, pain, and discharge, Neck: Negative for injury, pain, and swelling, Cardiovascular: Negative for chest pain, palpitations, and edema, Respiratory: Negative for shortness of breath, cough, wheezing, and pleuritic chest pain, Back: Negative for injury and pain, : Negative for injury, bleeding, discharge, and swelling, MS/Extremity: Negative for injury and deformity, Skin: Negative for injury, rash, and discoloration, Neuro: Negative for headache, weakness, numbness, tingling, and seizure, Psych: Negative for depression, anxiety, suicide ideation, homicidal ideation, and hallucinations, Allergy/Immunology: Negative for hives, rash, and allergies, Endocrine: Negative for neck swelling, polydipsia, polyuria, polyphagia, and marked weight changes, Hematologic/Lymphatic: Negative for swollen nodes, abnormal bleeding, and unusual bruising, 12:33 Abdomen/GI: Positive for abdominal pain, of the right lower quadrant, Exam: 12:33 Constitutional: This is a well developed, well nourished patient who is awake, alert, juan ramon and in no acute distress. Head/Face: Normocephalic, atraumatic. Eyes: Pupils equal round and reactive to light, extra-ocular motions intact. Lids and lashes normal. Conjunctiva and sclera are non-icteric and not injected. Cornea within normal limits. Periorbital areas with no swelling, redness, or edema. ENT: Nares patent. No nasal discharge, no septal abnormalities noted. Tympanic membranes are normal and external auditory canals are clear. Oropharynx with no redness, swelling, or masses, exudates, or evidence of obstruction, uvula midline. Mucous membranes moist. Neck: Trachea midline, no thyromegaly or masses palpated, and no cervical lymphadenopathy. Supple, full range of motion without nuchal rigidity, or vertebral point tenderness. No Meningismus. Chest/axilla: Normal chest wall appearance and motion. Nontender with no deformity. No lesions are appreciated. Cardiovascular: Regular rate and rhythm with a normal S1 and S2. No gallops, murmurs, or rubs. Normal PMI, no JVD. No pulse deficits. Respiratory: Lungs have equal breath sounds bilaterally, clear to auscultation and percussion. No rales, rhonchi or wheezes noted. No increased work of breathing, no retractions or nasal flaring. Back: No spinal tenderness. No costovertebral tenderness. Full range of motion. Male : Normal genitalia with no discharge or lesions. Skin: Warm, dry with normal turgor. Normal color with no rashes, no lesions, and no evidence of cellulitis. MS/ Extremity: Pulses equal, no cyanosis. Neurovascular intact. Full, normal range of motion., bilateral aka Neuro: Awake and alert, GCS 15, oriented to person, place, time, and situation. Cranial nerves II-XII grossly intact. Motor strength 5/5 in all extremities. Sensory grossly intact. Cerebellar exam normal. Normal gait. Psych: Awake, alert, with orientation to person, place and time. Behavior, mood, and affect are within normal limits. 12:33 Abdomen/GI: Inspection: abdomen appears normal, Bowel sounds: normal, Palpation: Liver: no appreciated palpable abnormalities, Hernia: noted in the right inguinal area, 12:43 ECG was reviewed by the Attending Physician. [facility] Vital Signs: 11:12 BP 145 / 76; Pulse 56; Resp 17; Temp 98.3; Pulse Ox 100% on R/A; Weight 73 kg; Pain dd2 10/10; 12:02 BP 159 / 78; Pulse 54; Resp 20; Pulse Ox 100% ; kb3 12:45 BP 152 / 80; Pulse 62; Resp 18; Pulse Ox 99% ; Pain 5/10; rg5 11:12 Pain Scale: Adult dd2 12:45 Pain Scale: Adult rg5 MDM: 11:07 Medical Screening Exam initiated juan ramon 12:38 Data reviewed: vital signs, nurses notes, lab test result(s), EKG, radiologic studies. [facility] 04/13 11:09 Order name: Basic Metabolic Panel; Complete Time: 12:18 [facility] 04/13 11:09 Order name: CBC with Diff; Complete Time: 12:18 [facility] 04/13 11:09 Order name: LFT's; Complete Time: 12:18 [facility] 04/13 11:09 Order name: Magnesium; Complete Time: 12:18 [facility] 04/13 11:09 Order name: NT PRO-BNP; Complete Time: 12:18 [facility] 04/13 11:09 Order name: PT-INR; Complete Time: 12:18 [facility] 04/13 11:09 Order name: Troponin HS; Complete Time: 12:18 [facility] 04/13 11:09 Order name: Lipase; Complete Time: 12:18 [facility] 04/13 11:09 Order name: UA Rfx Macario Cult if indicated [facility] 04/13 11:09 Order name: CT Abd/Pelvis - IV Contrast Only [facility] 04/13 11:09 Order name: Cardiac monitoring; Complete Time: 11:48 [facility] 04/13 11:09 Order name: EKG - Nurse/Tech; Complete Time: 11:59 [facility] 04/13 11:09 Order name: IV Saline Lock; Complete Time: 11:48 [facility] 04/13 11:09 Order name: Labs collected and sent; Complete Time: 11:48 [facility] 04/13 11:09 Order name: O2 Sat Monitoring; Complete Time: 11:48 [facility] 04/13 12:19 Order name: NPO; Complete Time: 12:34 [facility] EC:43 Rate is 55 beats/min. Rhythm is regular. QRS [place] is Normal. [place] interval is normal. QRS juan ramon interval is normal. QT interval is normal. No Q waves. T waves are Normal. No ST changes noted. Clinical impression: Normal ECG and No evidence of ischemia. Interpreted by me. Reviewed by me. Administered Medications: 12:02 Drug: Famotidine IVP 20 mg IVP once; dilute with 10 mL 0.9% NaCl; give over 2 minutes kb3 Route: IVP; Site: right antecubital; 12:58 Follow up: Response: No adverse reaction rg5 12:02 Drug: Ondansetron IVP 4 mg IVP once; over 2 minutes Route: IVP; Site: right antecubital;kb3 12:58 Follow up: Response: No adverse reaction rg5 12:02 Drug: morphine IVP or IV 4 mg IVP once over 4 mins Route: IVP; Infused Over: 4 mins; kb3 Site: right antecubital; 12:58 Follow up: Response: No adverse reaction; Pain is decreased rg5 12:44 Drug: Piperacillin-Tazobactam IVPB 3.375 grams IVPB once over 60 mins; (mix in NS 100 rg5 mL) Route: IVPB; Infused Over: 60 mins; Site: right antecubital; 12:58 Follow up: IV Status: Infusion continued upon admission rg5 12:46 Drug: morphine IVP or IV 4 mg IVP once over 4 mins Route: IVP; Infused Over: 4 mins; rg5 Site: right antecubital; 12:58 Follow up: Response: No adverse reaction; Pain is decreased rg5 Disposition Summary: 04/13/25 12:47 Hospitalization Ordered Notes: Hospitalization Status: Inpatient Admission juan ramon Provider: Evans Rodriguez cha Location: Telemetry/MedSur (Inpatient) juan ramon Condition: Stable juan ramon Problem: new juan ramon Symptoms: have improved juan ramon Bed/Room Type: Standard juan ramon Room Assignment: juan ramon Diagnosis - Abdominal tenderness juan ramon - Unilateral inguinal hernia, with obstruction, without gangrene, not specified as juan ramon recurrent - DIRECT Discharge Instructions: - Discharge Summary Sheet bd Forms: - SBAR form bd - Medication Reconciliation Form juan ramon - Leadership Thank You Letter juan ramon Signatures: Dispatcher [employer] James Lagos MD MD cha Lewis, Lynsay RN RN ll1 Tamera Moreland RN RN kb3 Vargas Skelton RN RN rg5 OLYA JONES RN RN dd2 Corrections: (The following items were deleted from the chart) 11:10 11:10 BASIC METABOLIC PANEL+C.LAB.BRZ ordered. EDMS EDMS 11:10 11:10 CBC+H.LAB.BRZ ordered. EDMS EDMS 11:10 11:10 HEPATIC FUNCTION+C.LAB.BRZ ordered. EDMS EDMS 11:10 11:10 MAGNESIUM+C.LAB.BRZ ordered. EDMS EDMS 11:10 11:10 PROBNP+C.LAB.BRZ ordered. EDMS EDMS 11:10 11:10 PROTIME (+INR)+COAG.LAB.BRZ ordered. EDMS EDMS 11:10 11:10 Troponin High Sensitivity+C.LAB.BRZ ordered. EDMS EDMS 11:10 11:10 LIPASE+C.LAB.BRZ ordered. EDMS EDMS 11:10 11:10 UA Rfx Macario Cult if indicated+U.LAB.BRZ ordered. EDMS EDMS 11:10 11:10 Chest Single View+RAD.RAD.BRZ ordered. EDMS EDMS 11:10 11:10 Abdomen Pelvis W Con+CT.RAD.BRZ ordered. EDMS EDMS 11:48 11:09 Oxygen Per Protocol ordered. juan ramon ll1
--- NOTE | 2025-04-13 12:48 | ER ---
Nurse's Notes [facility] Name: Jose Arroyo Age: 75 yrs Sex: Male : 1950 Arrival Date: 04/13/2025 Time: 10:56 Bed 23 Private MD: Diagnosis: Abdominal tenderness;Unilateral inguinal hernia, with obstruction, without gangrene, not specified as recurrent-DIRECT Presentation: 04/13 11:12 Chief complaint: Patient states: HE IS HAVING PAIN IN THE RT GROIN. HX OF INGUINAL dd2 HERNIA. Coronavirus screen: At this time, the client does not indicate any symptoms associated with coronavirus-19. Ebola Screen: No symptoms or risks identified at this time. Initial Sepsis Screen: Does the patient meet any 2 criteria? No. Patient's initial sepsis screen is negative. Does the patient have a suspected source of infection? No. Patient's initial sepsis screen is negative. Risk Assessment: Do you want to hurt yourself or someone else? Patient reports no desire to harm self or others. Onset of symptoms was April 12, 2025. 11:12 Method Of Arrival: Ambulatory dd2 11:12 Acuity: CHUYITA 3 dd2 Triage Assessment: 11:15 General: Appears uncomfortable, Behavior is calm, cooperative, appropriate for age. dd2 Pain: Complains of pain in right inguinal area Pain currently is 10 out of 10 on a pain scale. GI: Reports lower abdominal pain. Historical: - Allergies: 11:15 No Known Allergies; dd2 - PMHx: 11:15 HERNIA; dd2 - PSHx: 11:15 None; dd2 - Social history:: Smoking status: Patient reports the use of cigarette tobacco products, smokes one pack cigarettes per day. - Family history:: not pertinent. Screenin:10 [facility] ED Fall Risk Assessment (Adult) History of falling in the last 3 months, rg5 including since admission No falls in past 3 months (0 pts) Confusion or Disorientation No (0 pts) Intoxicated or Sedated No (0 pts) Impaired Gait Yes (1 pt) Mobility Assist Device Used No (0 pt) Altered Elimination No (0 pt) Score/Fall Risk Level 0 - 2 = Low Risk Oriented to surroundings, Maintained a safe environment. Abuse screen: Denies threats or abuse. Nutritional screening: No deficits noted. Tuberculosis screening: No symptoms or risk factors identified. Assessment: 11:39 Reassessment: No changes from previously documented assessment. Patient and/or family ll1 updated on plan of care and expected duration. Pain level reassessed. 12:10 General: Appears uncomfortable, Behavior is calm, cooperative, appropriate for age. rg5 Pain: Complains of pain in right femoral area Quality of pain is described as aching. Neuro: Level of Consciousness is awake, alert, obeys commands, Oriented to person, place, time, situation. Cardiovascular: Denies chest pain. Respiratory: Airway is patent Respiratory effort is even, unlabored. GI: Abdomen is flat, non-distended, Abd is soft and non tender. : No signs and/or symptoms were reported regarding the genitourinary system. EENT: No signs and/or symptoms were reported regarding the EENT system. Derm: Skin is intact, Skin is dry, Skin is normal. Musculoskeletal: Circulation, motion, and sensation intact. Range of motion: intact in all extremities. Vital Signs: 11:12 BP 145 / 76; Pulse 56; Resp 17; Temp 98.3; Pulse Ox 100% on R/A; Weight 73 kg; Pain dd2 10/10; 12:02 BP 159 / 78; Pulse 54; Resp 20; Pulse Ox 100% ; kb3 12:45 BP 152 / 80; Pulse 62; Resp 18; Pulse Ox 99% ; Pain 5/10; rg5 11:12 Pain Scale: Adult dd2 12:45 Pain Scale: Adult rg5 ED Course: 10:58 Patient arrived in ED. mr 11:07 James Lang MD is Attending Physician. juan ramon 11:15 Triage completed. dd2 11:15 Arm band placed on right wrist. dd2 11:39 Patient placed in an exam room, on a stretcher. ll1 11:48 Lipase Sent. ll1 11:48 Basic Metabolic Panel Sent. ll1 11:48 CBC with Diff Sent. ll1 11:48 LFT's Sent. ll1 11:48 Magnesium Sent. ll1 11:48 NT PRO-BNP Sent. ll1 11:48 PT-INR Sent. ll1 11:48 Troponin HS Sent. ll1 11:59 Lipase Sent. bc6 12:00 Basic Metabolic Panel Sent. bc6 12:00 CBC with Diff Sent. bc6 12:00 LFT's Sent. bc6 12:00 Magnesium Sent. bc6 12:00 NT PRO-BNP Sent. bc6 12:00 PT-INR Sent. bc6 12:00 Troponin HS Sent. bc6 12:00 Initial lab(s) drawn, by ED staff, sent to lab. Inserted saline lock: 20 gauge in right bc6 antecubital area, using aseptic technique. Blood collected. Flushed with 10 mL NS. 12:04 EKG done, by metal technician. reviewed by James Lang MD. ts3 12:10 Patient has correct armband on for positive identification. Door closed. Noise rg5 minimized. Warm blanket given. 12:34 Vargas Skelton, LAURA is Primary Nurse. rg5 12:39 CT Abd/Pelvis - IV Contrast Only In Process Unspecified. EDMS 12:45 Evans Rodriguez MD is Hospitalizing Provider. [facility] 13:03 No provider procedures requiring assistance completed. Patient admitted, IV remains in rg5 place. intact, No redness/swelling at site. Administered Medications: 12:02 Drug: Famotidine IVP 20 mg IVP once; dilute with 10 mL 0.9% NaCl; give over 2 minutes kb3 Route: IVP; Site: right antecubital; 12:58 Follow up: Response: No adverse reaction rg5 12:02 Drug: Ondansetron IVP 4 mg IVP once; over 2 minutes Route: IVP; Site: right antecubital;kb3 12:58 Follow up: Response: No adverse reaction rg5 12:02 Drug: morphine IVP or IV 4 mg IVP once over 4 mins Route: IVP; Infused Over: 4 mins; kb3 Site: right antecubital; 12:58 Follow up: Response: No adverse reaction; Pain is decreased rg5 12:44 Drug: Piperacillin-Tazobactam IVPB 3.375 grams IVPB once over 60 mins; (mix in NS 100 rg5 mL) Route: IVPB; Infused Over: 60 mins; Site: right antecubital; 12:58 Follow up: IV Status: Infusion continued upon admission rg5 12:46 Drug: morphine IVP or IV 4 mg IVP once over 4 mins Route: IVP; Infused Over: 4 mins; rg5 Site: right antecubital; 12:58 Follow up: Response: No adverse reaction; Pain is decreased rg5 Medication: 12:10 VIS not applicable for this client. rg5 Outcome: 12:47 Decision to Hospitalize by Provider. juan ramon 12:59 Admitted to accompanied by nurse, via wheelchair, rg5 12:59 Condition: stable 12:59 Instructed on the need for admit, 13:00 Patient left the ED. rg5 Signatures: Dispatcher [employer] EDMS James Lang MD MD cha Rivera, Emili, Reg Reg mr Mary Le, RN RN ll1 Tamera Moreland RN RN kb3 Marla Villa 6 Vargas Skelton RN RN rg5 OLYA JONES RN RN dd2 Krista Lazaro 3
[2025-04-13] MEDS ORDERED: LIDOCAINE HCL/EPINEPHRINE 20 ML MDV ONE (13:03)
[2025-04-13] MEDS ORDERED: IPRATROPIUM BROM 0.5MG/2.5ML NEB PRN ×2 (13:10→17:55)
[2025-04-13] MEDS ORDERED: ALBUTEROL 2.5 MG/3 ML NEB SOL NEB PRN ×2 (13:10→17:55)
[2025-04-13] MEDS ORDERED: ONDANSETRON 4 MG/2 ML VIAL IV PRN (13:10)
--- NOTE | 2025-04-13 13:11 | RAD REPORT ---
EXAMINATION: CT Abdomen Pelvis W Contrast CLINICAL INDICATION: Male, 75 years old. ABD PAIN TECHNIQUE: CT abdomen and pelvis was performed, after the administration of IV contrast, [facility]. Axial, sagittal and coronal reconstructions were obtained. One or more of the following dose reduction techniques were used: Automated exposure control, adjustment of the mA and k V according to patient size, and iterative reconstruction. Unless otherwise specified, incidental findings do not require dedicated imaging follow-up. COMPARISON: 12/12/2024 FINDINGS: LOWER CHEST: The visualized lung bases are clear. LIVER: Normal in size and contour. No focal lesion. BILIARY SYSTEM: No suspicious abnormalities. SPLEEN: Normal size. No focal lesion. PANCREAS: No mass, ductal dilation, or erick-pancreatic fluid. ADRENALS: Normal; no mass. KIDNEYS: Normal size and contour. Bilateral renal cortical cysts, largest at the upper pole measuring 3 cm. No hydronephrosis. URINARY BLADDER: Unremarkable. GASTROINTESTINAL TRACT: No evidence of free air, significant intra-abdominal free fluid, bowel obstru ction or abscess. APPENDIX: Normal appendix. LYMPH NODES: No lymphadenopathy. MUSCULOSKELETAL: No acute or suspicious osseous abnormality. ADDITIONAL FINDINGS: The right enlarged inguinal hernia containing a segment of the sigmoid colon. Se quelae prostatic resection again seen. IMPRESSION: Redemonstration of large right inguinal hernia containing a segment of sigmoid colon, wall thickening along the segment has since improved. Other stable incidental findings as above. No other acute or concerning abnormalities seen in the abd omen or pelvis.
[2025-04-13] MEDS: Ringers Lactate 1,000 ML IV ONE (13:30)
--- NOTE | 2025-04-13 13:30 | P.HP ---
Certification for Inpatient Patient admitted to: Observation With expected LOS: <2 Midnights Practitioner: I am a practitioner with admitting privileges, knowledge of patient current condition, hospital course, and medical plan of care. Services: Services provided to patient in accordance with Admission requirements found in Title 42 Section 412.3 of the Code of Federal Regulations Patient History Date of Service: 04/13/25 Reason for admission: inguinal hernia History of Present Illness: Patient is a 75-year-old Slovak-speaking male who presented to the ER complaining of right sided groin pain and discomfort. He has been found to have a large right inguinal hernia containing a segment of the sigmoid colon. Patient has a history of hernia. He arrived in ER hemodynamically stable. He was taken emergently to the OR for inguinal repair. Past medical history is significant for tobacco smoking. I do not have the chance to see the patient as he was taken to surgery. Patient was seen here in November of this year, which was 4 months ago for a similar presentation. He had a right inguinal hernia containing a loop of sigmoid colon. This was successfully reduced in the ER. There was no evidence of bowel obstruction. Allergies No Known Allergies Allergy (Unverified 04/13/25 14:06) Home Medications: NK [No Home Meds] 12/12/24 - Past Medical/Surgical History Diabetic: No -: Bladder calculi -: Renal cyst -: BPH -: Tobacco abuse Psychosocial/ Personal History: Patient is single, has no children. 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 - Family History Mother -: Cancer - Social History Alcohol use: No CD- Drugs: No Caffeine use: Yes Physical Examination - Physical Exam General: In no apparent distress, Cooperative Respiratory: Clear to auscultation bilaterally, Normal air movement Cardiovascular: No edema, Normal pulses, Regular rate/rhythm, Normal S1 S2 Gastrointestinal: Soft and benign, Non-distended Neurological: Normal speech - Studies Laboratory Data (last 24 hrs) 04/13/25 04/13/25 04/13/25 11:14 11:14 11:14 WBC 5.50 Hgb 14.5 Hct 42.4 Plt Count 181 PT 13.0 INR 1.16 Sodium 141 Potassium 3.3 L BUN 20 H Creatinine 0.96 Glucose 91 Magnesium 2.2 Total Bilirubin 1.6 H AST 21 ALT 25 Alkaline Phosphatase 128 H Lipase 37 Assessment and Plan - Plan Assessment Patient is 75-year-old male with recurrent hernia who returns with a right inguinal hernia. Patient taken urgently to the OR for surgical inguinal repair. Recurrent hernia Tobacco smoking Plan: Will admit under observation Postoperative surgical management Multimodal pain regimen Antiemetics IV fluid infusion Patient can be discharged tomorrow if cleared by surgery - Advance Directives Does patient have a Living Will: No Does patient have a Durable POA for Healthcare: No
[2025-04-13] MEDS ORDERED: ROCURONIUM 50 MG/5 ML VIAL IV ONE (13:53)
[2025-04-13] MEDS ORDERED: FENTANYL CITR 100 MCG/2 ML ONE ×2 (13:53→15:13)
[2025-04-13] MEDS ORDERED: LIDOCAINE 2% MPF 5 ML VIAL ONE (13:53)
[2025-04-13] MEDS ORDERED: EPHEDRINE SULF 50 MG/ML VIAL ONE (14:20)
[2025-04-13] MEDS ORDERED: GLYCOPYRROLATE 0.2 MG/ML SYR ONE ×2 (14:20→15:30)
[2025-04-13] MEDS ORDERED: NEOSTIGMINE 1 MG/ML -10 ML VIAL ONE (15:30)
--- NOTE | 2025-04-13 15:32 | P.OP ---
Preoperative diagnosis: RIGHT Inguinal Hernia Postoperative diagnosis: RIGHT Inguinal Hernia Primary procedure: Open RIGHT Inguinal Hernia Repair with mesh Anesthesia: GETA Estimated blood loss: <5cc Specimen: Hernia Sack Findings: Large Incarcerated Hernia containing colon, external oblique damaged Complications: None Implants: Bard Medium Perfix Plug and Patch Transferred to: Recovery Room Condition: Good
[2025-04-13 17:18] VITALS: O2SAT 97; BMI 26.7
[2025-04-13] MEDS: NA CHLORIDE 0.9% 1,000 ML IV SCH (17:50)
[2025-04-13] MEDS ORDERED: PNEUMOCOCCAL VACCINE 0.5 ML IMVAC ONE (18:00)
--- NOTE | 2025-04-13 18:51 | CON ---
Date of Consultation: 04/13/2025 Brief History Of Present Illness: The patient is a 75-year-old Wolof-speaking man who presents to hospital with multiyear symptoms of right lower quadrant abdominal pain located in the inguinal herni a. He has known that it has been present for many years. He has had several admissions to the ER, b ut never been formally admitted on multiple occasions for pain in the right groin area. He never fol lowed up for surgery, and on this particular occasion, he came in with severe abdominal pain and inca rceration of sigmoid colon stuck and entrapped within the right inguinal region, and as such, he is c onsulted to see me with an incarcerated possibly strangulated right inguinal hernia. Past Medical History: Bladder calculi, BPH, renal cyst, tobacco abuse. Allergies: NO KNOWN DRUG ALLERGIES. Home Medications: None. Social History: He is single. Has no children. 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 Mother had cankatarina r. He smokes. Denies recreational drug use. Drinks alcohol recreationally. Review of Systems: Ten-point review of systems other than HPI has right lower quadrant pain with some mild nausea, decre ased bowel function. Physical Examination: General: He is awake, alert, and oriented. Psychiatric: Appropriate and conversive. HEENT: He is normocephalic. Sclerae anicteric. Mucous membranes are moist. Oropharynx is clear wi th very poor dentition. Multiple teeth missing and poor dentition overall. Neck: Supple without JVD. Chest: Normal to expansion and excursion. Cardiovascular: Regular rate and rhythm. Pulmonary: Clear to auscultation bilaterally. Abdomen: Soft with positive right lower quadrant tenderness and an incarcerated right inguinal herni a. It is large, tender to palpation and irreducible. Extremities: No clubbing, cyanosis, or edema. Skin: Warm and dry. Laboratory Data: White blood cell count of 5.5, hemoglobin is 14.5, hematocrit 42.4, platelet count is 181. Sodium 141, potassium 3.3, chloride is 27, BUN 20, creatinine 0.9, glucose is 91, magnesium 2.2, total bilirubin 1.6, direct bilirubin 0.3, indirect 1.3, AST 21, ALT 25, alkaline phosphatase 12 8, lipase 37. He had a CT scan performed of the abdomen and pelvis officially read as redemonstratio n of large right inguinal hernia containing segment of sigmoid colon, wall thickening along the segme nt has improved. Other stable incidental findings noted included a normal appendix. Assessment And Plan: This is a 75-year-old male who comes in with an incarcerated possibly strangula renuka right inguinal hernia containing portion of sigmoid colon. 1. IV fluid hydration. 2. Antibiotic coverage. 3. I have explained the risks, benefits, and alternatives of open right inguinal hernia repair with m esh including, but not limited to, bleeding, infection, damage to surrounding tissue, need for furthe r operative procedures, injury to intestines and nerves, chronic pain, trouble with mesh, heart attac ks, blood clots, strokes, other unforeseen complications in the perioperative period, recurrence of h ernia with noncompliance with the postoperative instructions was reviewed in detail. The patient dis played understanding of the above stated plan. A tool and die designer was present throughout their di scussion. The patient had all questions answered and agrees to proceed as indicated. Thank you for this interesting consult. JOSH/ROSIE Voice ID: [id number] Report ID: [id number]
--- NOTE | 2025-04-13 20:06 | OP ---
Date of Procedure: 04/13/2025 Surgeon: Washington Hernandez MD, Preoperative Diagnosis: Right inguinal hernia. Postoperative Diagnosis: Right inguinal hernia. Procedure Performed: Open right inguinal hernia repair with mesh. Anesthesia: General endotracheal. Estimated Blood Loss: Less than 5 cc. Specimen: Hernia sac. Findings: A large incarcerated hernia containing colon in the external oblique aponeurosis was heavi ly injured by the hernia on the right inguinal region. Complications: None. Implants: Bard medium PerFix plug and patch hernia repair system. Disposition: The patient transferred to recovery room in good condition. Procedure In Detail: After informed consent was obtained, the patient was brought to the operating r oom, prepped and draped in the usual sterile fashion after adequate anesthesia was achieved. I made a linear incision overlying a very large inguinal bulge in the right groin down to subcutaneous tissu es. I dissected down to using electrocautery. The external oblique which were noted to be in its entirety through the hernia due to the hernia defect pushing through this area was obvious. I then encircled the spermatic cord and structures and began this from the hernia sac, whi ch was large and incarcerated at this time. I placed the patient in steep Trendelenburg position and after the hernia sac from the spermatic cord and structures, I was able to gently reduce it back into the intraperitoneal space. I then opened the hernia sac, inspected the area. No injury to vital structures was appreciated, at this point. I then ligated the hernia sac and removed a lar ge portion of it, sent it off for pathologic examination. At this point, I closed the hernia sac def ect and imbricated the hernia sac using running 3-0 Vicryl sutures, at this point. It was placed angelica k in the preperitoneal space. I then deployed a medium Bard PerFix plug in the preperitoneal space b ehind the closure of the hernia sac, at this point, and secured it circumferentially around using int errupted 2-0 PDS sutures. At this point, I secured the patch mesh overlying to the pubic tubercle as well as to the residual medial and lateral shelving edges of the damaged external oblique aponeurosi s. However, because of the damage from the hernia, it would not come back to midline. At this point , the patch was placed and the deep inguinal ring was reconstituted with the same set 2-0 PDS suture, at this point, on the medial and lateral shelving edge of the internal oblique aponeurosis residual and the residual internal oblique aponeurosis on thew either side. At this point, I attempted to rohini se the external oblique aponeurosis over the top. However, there were multiple defects in this area due to the defect in that area. Ultimately, the area was copiously irrigated and the deep tissues be ing closed as much as possible. I then proceeded to close the Camper's fat and Santosh's fascia over the top using the same set 3-0 Vicryl suture in a running fashion. The deep inguinal area was cleans ed once again and the skin was closed with a 4-0 Monocryl in a running fashion. Dermabond was placed over top. The patient tolerated the procedure without incident or complication and transferred to P ACU in good condition. All counts were correct at the end of the case. JOSH/ROSIE Voice ID: [id number] Report ID: [id number]
[2025-04-13] MEDS: HYDROCODONE/APAP 7.5/325 MG TAB PO PRN (20:13)
[2025-04-14 05:15] LABS: Absolute Lymphocytes (CBC) 0.4 K/uL (0.7-4.9); Hematocrit 40.7 % (39.6-49.0); Hemoglobin 14.1 g/dL (13.6-17.9); MCH 30.8 pg (27.0-35.0); MCHC 34.8 g/dL (32.0-36.0); MCV 88.7 fL (80-100); MPV 9.2 fL (7.6-11.3); Nucleated RBC Absolute Count 0.0 (0-0); Nucleated Red Blood Cells % 0.0 % (0-0); RBC Red Blood Cell Count 4.59 M/uL (4.33-5.43); White Blood Count 9.40 thou/uL (4.3-10.9)
[2025-04-14 05:32] LABS: Anion Gap 7.7 mEq/L (5.0-15.0); BUN Blood Urea Nitrogen 17.0 mg/dL (7-18); Glucose Level 141.0 mg/dL (74-106); Magnesium 2.2 mg/dL (1.6-2.4); Potassium 3.7 mEq/L (3.5-5.1)
[2025-04-14 05:44] LABS: Blood Morphology Comment NOT SEEN (NOT SEEN); Differential Total Cells Count 100; Segmented Neutrophils 61 % (40-80)
[2025-04-14] MEDS: POTASSIUM 25 MEQ EFFERV TAB PO ONE (05:54)
--- NOTE | 2025-04-14 10:43 | P.DS ---
Admission Date: 04/13/25 Discharge Date: 04/14/25 Disposition: ROUTINE DISCHARGE Discharge Condition: GOOD Reason for Admission: inguinal hernia Brief History of Present Illness: Patient is a 75-year-old [place]-speaking male who presented to the ER complaining of right sided groin pain and discomfort. He has been found to have a large right inguinal hernia containing a segment of the sigmoid colon. Patient has a history of hernia. He arrived in ER hemodynamically stable. He was taken emergently to the OR for inguinal repair. Past medical history is significant for tobacco smoking. I do not have the chance to see the patient as he was taken to surgery. Patient was seen here in November of this year, which was 4 months ago for a similar presentation. He had a right inguinal hernia containing a loop of sigmoid colon. This was successfully reduced in the ER. There was no evidence of bowel obstruction. Hospital Course: Patient underwent right inguinal repair with mesh for incarcerated inguinal hernia. He tolerated the procedure well. He is tolerating diet well this morning. He has been medically and surgically cleared for discharge. His hospital course has been otherwise unremarkable. Vital Signs/Physical Exam: Temp Pulse Resp BP Pulse Ox 98.2 F 52 18 107/62 97 04/14/25 08:00 04/14/25 08:00 04/14/25 08:00 04/14/25 08:00 04/14/25 08:00 General: Alert, In no apparent distress, Cooperative HEENT: Atraumatic, Normocephalic Respiratory: Clear to auscultation bilaterally, Normal air movement Cardiovascular: No edema, Normal pulses, Regular rate/rhythm, Normal S1 S2, Abnormal S3 Gastrointestinal: Soft and benign, Non-distended, Other (Right lower quadrant surgical scar) Neurological: Normal speech Laboratory Data at Discharge: WBC 9.40 thou/uL (4.3-10.9) 04/14/25 05:03 Hgb 14.1 g/dL (13.6-17.9) 04/14/25 05:03 Hct 40.7 % (39.6-49.0) 04/14/25 05:03 Plt Count 160 thou/uL (152-406) 04/14/25 05:03 PT 13.0 SECONDS (10-13.0) 04/13/25 11:14 INR 1.16 04/13/25 11:14 Sodium 136 mEq/L (136-145) D 04/14/25 05:03 Potassium 3.7 mEq/L (3.5-5.1) 04/14/25 05:03 BUN 17 mg/dL (7-18) 04/14/25 05:03 Creatinine 0.88 mg/dL (0.70-1.30) 04/14/25 05:03 Glucose 141 mg/dL (74-106) H 04/14/25 05:03 Phosphorus 2.7 mg/dL (2.5-4.9) 04/14/25 05:03 Magnesium 2.2 mg/dL (1.6-2.4) 04/14/25 05:03 Total Bilirubin 1.6 mg/dL (0.2-1.0) H 04/13/25 11:14 AST 21 U/L (15-37) 04/13/25 11:14 ALT 25 U/L (16-61) 04/13/25 11:14 Alkaline Phosphatase 128 U/L (45-117) H 04/13/25 11:14 Lipase 37 U/L (13-75) 04/13/25 11:14 Home Medications: Codeine/APAP [Tylenol W/Codeine #3 tab] 1 tab PO Q6HP PRN #28 tab 04/14/25 New Medications: Codeine/APAP [Tylenol W/Codeine #3 tab] 1 tab PO Q6HP PRN #28 tab PRN Reason: Pain Diet: Regular Activity: No lifting more than 10 lbs Followup: Washington Hernandez MD [ACTIVE - CAN ADMIT] - NONE,NONE [Primary Care Provider] -
[2025-04-14 13:07] VITALS: BP 103/60; TEMP 97.7
== END 2025-04-14 13:26 | disposition home or self-care (01) ==
LOC: ER 10:56 → ERHOLD 13:10 → 4TH 15:32
PROVIDERS: ADMIT Internal Medicine; ATTEND Internal Medicine
PROC: 0YU50JZ Supplement Right Inguinal Region with Synthetic Substitute, Open Approach (ICD-10-PCS; principal; 2025-04-13 13:30)
DX: K40.30 Unilateral inguinal hernia, with obstruction, without gangrene, not specified as recurrent (principal); F17.210 Nicotine dependence, cigarettes, uncomplicated; Z23 Encounter for immunization
CPT/HCPCS: 93005; 85025 ×2; 80048 ×2; 36415 ×2; 83735 ×2; 84100; 85610; 82947 ×3; 80076; 88302; 84484; 83690; 83880; 74177; 96375; 96374; 99285; 49505; Q9967; J2704; J2710; J2543; J2003; J3010 ×2; J1100; J2405 ×2; G0378 ×4; J7120; J7030 ×2